=== PATIENT | female | born 1930 | race Caucasian/White ===

== ENCOUNTER 2017-12-11 07:03 | Day surgery (SDC) | payer MEDICARE ==
[2017-12-11] MEDS ORDERED: Acetaminophen 500 MG TAB PO SCH (08:45)
[2017-12-11] MEDS ORDERED: diphenhydrAMINE 25 MG CAP PO SCH (08:45)
[2017-12-11] MEDS ORDERED: Sodium Chloride 0.9% 10 ML ONE (08:52)
[2017-12-11 14:09] LABS: Hemoglobin 9.6 g/dL (12.0-16.0)
[2017-12-11 16:24] VITALS: TEMP 97.6
[2017-12-11 17:12] VITALS: BP 150/67
== END 2017-12-11 17:13 | disposition home or self-care (01) ==
LOC: ONC/OP 07:03
PROVIDERS: ATTEND Internal Medicine Medical Oncology
DX: D64.9 Anemia, unspecified (principal); D69.6 Thrombocytopenia, unspecified; Z88.2 Allergy status to sulfonamides; Z88.1 Allergy status to other antibiotic agents
CPT/HCPCS: 36415; 36430; 85014; 85018; 86850; 86900; 86901; A4216; P9016

== ENCOUNTER 2017-12-12 04:17 | Inpatient (IN) | payer MEDICARE ==
[2017-12-12 04:56] LABS: CO2 Tension 32.1 mmHg (35.0-45.0); pH, Arterial 7.39 (7.35-7.45)
[2017-12-12 04:57] LABS: Actual Bicarbonate (HCO3a) 19.1 mEq/L (22-28); Base Excess (BEa) -4.9 mEq/L (-2.0 to +3.0); Hemoglobin (Hb) 11.7 g/dL (12.0-16.0); O2 Tension (PaO2) 59.8 mmHg (> 60.0)
[2017-12-12 04:58] LABS: Carboxyhemoglobin (COHb) 0.8 gm% (0.0-3.0)
[2017-12-12 04:59] LABS: ALV-art Gradient 49.805 (0-20); Analyzer IN Cardio ER; Calcium, Ionized 1.1 mmol/L (1.12-1.30); Potassium - ABG Lab 3.5 mmol/L (3.70-5.30); Puncture Site RRA
[2017-12-12 05:23] LABS: #Basophils 0.1 thou/uL (0.0-0.2); #Eosinphils 0.1 thou/uL (0.0-0.7); #Lymphocytes 2.3 thou/uL (1.20-3.40); #Monocytes 1.1 thou/uL (0.11-0.59); #Neutrophils 14.4 thou/uL (1.40-6.50); %Basophils 0.8 % (0.0-1.0); %Eosinophils 0.5 % (0.0-10.0); %Lymphocytes 12.8 % (21.0-51.0); %Monocytes 6.2 % (0.0-10.0); %Neutrophils 79.7 % (42.0-75.0); Hemoglobin 11.1 g/dL (12.0-16.0); Mean Corpuscular HGB CONC 31.4 g/dL (32.0-36.0); Mean Corpuscular Hemoglobin 26.9 pg (27.0-31.0); Mean Corpuscular Volume 85.7 fL (78.0-98.0); Mean Platelet Volume 7.3 fL (7.4-10.4); Platelet Count 265 thou/uL (130-400); RBC Distribution Width 14.6 % (11.5-14.5); Red Blood Cell (RBC) Count 4.14 mill/uL (4.20-5.40); White Blood Cell (WBC) Count 18.1 thou/uL (4.8-10.8)
[2017-12-12 05:38] LABS: ALT (SGPT) 11 U/L (8-55); AST (SGOT) 17 U/L (5-34); Albumin 3.3 g/dL (3.4-4.8); Alkaline Phosphatase 95 U/L (40-150); Anion Gap 17 mmol/L (10-20); BUN (Urea Nitrogen) 31 mg/dL (9.8-20.1); Calc. Creatinine Clearance 0 mL/min (70-130); Calcium 8.4 mg/dL (7.8-10.44); Carbon Dioxide 18 mmol/L (23-31); Chloride 107 mmol/L (98-107); Estimated GFR-MDRD 24; Globulin 3.7 g/dL (2.4-3.5); Glucose 131 mg/dL (83-110); Potassium 3.6 mmol/L (3.5-5.1); Sodium 138 mmol/L (136-145)
[2017-12-12 05:45] LABS: CKMB 2.2 ng/mL (0-6.6); Troponin I 0.044 ng/mL (< 0.028)
[2017-12-12] MEDS ORDERED: Levofloxacin 500 mg/D5W 100 ml Premix Bag ONE (07:23)
[2017-12-12 07:25] LABS: Troponin I 0.051 ng/mL (< 0.028)
[2017-12-12] MEDS ORDERED: Ondansetron ODT 4 MG TAB PO PRN (07:35)
[2017-12-12] MEDS ORDERED: Dextrose 50% Abboject 50 ML SYRINGE SLOW IVP PRN (07:35)
[2017-12-12] MEDS ORDERED: Acetaminophen 325 MG TAB PO PRN (07:35)
[2017-12-12] MEDS ORDERED: Dextrose 5% in Water 1,000 ML IV PRN (07:35)
[2017-12-12] MEDS ORDERED: Zolpidem Tartrate 5 MG TAB PO PRN (07:35)
--- NOTE | 2017-12-12 08:13 | HP ---
PRIMARY CARE PROVIDER: Dr. Arias Hu CHIEF COMPLAINT: Referred to [facility] by [facility]. HISTORY OF PRESENT ILLNESS: The patient presents with shortness of breath and productive cough. No off color sputum. No fever, chills or sweats. She has been sick with some of these symptoms for a c ouple of weeks. She had some outpatient antibiotics which she did not complete. She was in the hosp ital and found to be anemic. Workup revealed a villous adenoma. She was discharged home. She repre sents with the same symptoms. Physical examination is consistent with bilateral pneumonia. Chest x-ray shows bilateral infiltrates . She is being admitted to the hospital with a diagnosis of pneumonia. PAST MEDICAL HISTORY: Recent iron deficiency anemia, found to have a villous adenoma of the colon. She has chronic kidney disease related to IV contrast for cardiac cath in 2014. She has a prosthetic mechanical aortic valve placed in 2014. She has a history of high blood pressure, dyslipidemia, typ e 2 diabetes, gout. PAST SURGICAL HISTORY: She has had a tubal ligation, aortic valve, bladder surgery. CURRENT MEDICATIONS: Glipizide 2.5 mg a day, atorvastatin 20 mg a day, metoprolol 25 mg a day, allop urinol 100 mg a day, aspirin 81 mg a day. Amlodipine 5 mg a day. ALLERGIES: BACTRIM, CEPHALEXIN, SULFA, TRIMETHOPRIM. SOCIAL HISTORY: Never smoked, no alcohol. Lives with daughter. CODE STATUS: Full code status. Daughter next of kin. FAMILY HISTORY: No high blood pressure, diabetes, heart disease. REVIEW OF SYSTEMS: CONSTITUTIONAL: No fevers, sweats, chills, headaches, dizziness or fainting. EYES: No double vision, blurred vision. ENT: No ear pain or drainage. No nasal bleeding. No trouble swallowing. CARDIAC: Some chest tightness and pain with coughing. Otherwise, no chest pain, no orthopnea, no pa roxysmal nocturnal dyspnea. RESPIRATORY: See present illness. She has no chronic dyspnea on exertion, no history of asthma or w heezing. GASTROINTESTINAL: No nausea, vomiting, diarrhea or constipation, blood in her stools or abdominal pa in. GENITOURINARY: No hematuria or dysuria. MUSCULOSKELETAL: Some swelling in her right ankle which has been attributed to amlodipine. No parti cular joint or muscle pain. NEUROLOGICAL: No strokes, seizures or focal weakness. PSYCHIATRIC: No anxiety or depression. SKIN: She has thin skin on her arms. She has easy bruising, especially with any mild trauma or IVs or blood drawing. HEME/LYMPH: No tender or swollen lymph nodes in axilla, inguinal or cervical area. PHYSICAL EXAMINATION: GENERAL: The patient is alert, oriented, cooperative, very pleasant lady. Daughter at bedside. VIT AL SIGNS: Her respirations range from 22-36, O2 sat is high 90s on 2 liters of O2, blood pressure 16 4/73, pulse is 85-94. HEENT: Reveal pupils equal, round, reactive. Extraocular movements are intact. Sclerae white. Tym panic membranes clear. Nose clear. Throat is clear. Dental hygiene is good. NECK: No jugular venous distention, adenopathy or thyromegaly. CHEST: Clear to percussion. There are rales and rhonchi bilaterally posterior lung el minorly i n the anterior lung el. HEART: Had a regular rate and rhythm with crisp valve sounds. They sound mechanical; however, she i s listed as having a bioprosthetic valve. No murmurs or gallops. ABDOMEN: Soft, bowel sounds are normal. No hepatosplenomegaly, no mass, no rebound. EXTREMITIES: Reveal no cyanosis, clubbing or edema. PULSES: Carotid, radial, femoral, and dorsalis pedis pulses intact. SKIN: Warm and dry. She has marked actinic changes on her forearms and some bruising at the site of IVs. HEME/LYMPH: Reveals no tender or swollen lymph nodes in axilla, inguinal or cervical area. NEUROLOGIC: Cranial nerves II-XII are intact. Moves all extremities. Sensation is intact. LABORATORY AND X-RAY FINDINGS: Chest x-ray read by me. Surgical changes from midline sternotomy. I am able to see a mechanical valve. She has some reticular nodular infiltrates bilaterally. EKG; no ne presented. We will look for one, if not available, will order. White count elevated at 18.1 with an absolute neutrophilia, hemoglobin 11.1, platelet count 265,000. A D-dimer was elevated at 2.5. Arterial blood gas shows a normal pH, low CO2, low O2. Comp metabol ic profile shows elevated troponins 0.044, 0.051. BNP 685, creatinine 1.97, BUN 31, CO2 18, potassiu m 3.6, sodium 138. ADMITTING DIAGNOSES: 1. Acute hypoxic respiratory failure. 2. Pneumonia, bilateral. 3. Aortic valve prosthesis. 4. Chronic kidney disease stage 4. 5. Hypertension. 6. 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 type 2. 7. Dyslipidemia. 8. Villous adenoma. PLAN: The patient's chronic kidney disease 4 precludes contrast study for pulmonary emboli. VQ scan has been ordered stat. An echocardiogram has been ordered. Blood cultures have been ordered. Anti biotics with IV Levaquin and Zithromax have been ordered. O2 as needed to keep sats up to 92 have be en ordered. Repeat CBC, basic metabolic profile for tomorrow morning has been ordered.
--- NOTE | 2017-12-12 08:30 | RAD ---
PORTABLE CHEST 1 VIEW: Date: 12/12/17 Time: 0350 hours HISTORY: Difficulty breathing. FINDINGS/IMPRESSION: Comparison made with exam of 05/23/16. Changes of median sternotomy are again seen. The heart size is borderline. There is pulmonary vascula r congestion with mild bibasilar infiltrates. No pneumothoraces or large effusions are seen. POS: [facility]
--- NOTE | 2017-12-12 08:43 | ULT ---
BILATERAL LOWER EXTREMITY VENOUS DOPPLER ULTRASOUND: Date: 12/12/17 HISTORY: Shortness of breath. Bilateral lower extremity pain. TECHNIQUE: Sarabia scale ultrasound with color flow and spectral Doppler imaging of the deep venous systems of the lower extremities was performed bilaterally. FINDINGS: There is good flow, compression, and augmentation noted in the common femoral, femoral, deep femoral, popliteal, posterior tibial, and greater saphenous veins on either side. IMPRESSION: No evidence of deep venous thrombosis in either lower extremity. POS: [facility]
[2017-12-12 10:45] VITALS: BMI 28.3
[2017-12-12] MEDS: Azithromycin 500 MG in Sodium Chloride 0.9% 250 ML 250 ML IVPB SCH (11:06)
[2017-12-12] MEDS: Heparin 5,000 UNITS/ML VIAL SC SCH ×3 (11:06→21:28)
--- NOTE | 2017-12-12 11:17 | NM ---
VQ SCAN: Date: 12/12/17 HISTORY: Shortness of breath. TECHNIQUE: Ventilation/perfusion scan performed using 17.2 mCi Xenon-133 by inhalation for the ventilation study followed by the intravenous administration of 6.6 mCi technetium-99m MAA for the perfusion scan. FINDINGS: Correlation is made with chest radiograph same date. Fairly homogeneous tracer distribution is seen in the lungs bilaterally on ventilation/perfusion scan without mismatched, pleural based, wedge-shaped, segmental/subsegmental, perfusion defects. IMPRESSION: Very low probability for pulmonary embolism. POS: [facility]
--- NOTE | 2017-12-12 13:29 | PDOC.EVN ---
Event Note - Event Note Event Note: monitor- poss a flutter, sinus dagoberto
[2017-12-12 14:05] LABS: Troponin I 0.034 ng/mL (< 0.028)
[2017-12-12] MEDS ORDERED: Diltiazem 125 MG in Sodium Chloride 0.9% 100 ML IVPB SCH (17:00)
[2017-12-12] MEDS ORDERED: Amiodarone In Dextrose 200 ML IVPB SCH (18:00)
[2017-12-12] MEDS ORDERED: Amiodarone HCl 150 MG, Admixture Fee 1 EACH in Dextrose 5% in Water 100 ML IVPB SCH (18:15)
[2017-12-12] MEDS: HumaLOG 300 UNITS/3 ML VIAL SC PRN (18:41)
--- NOTE | 2017-12-12 18:43 | CON ---
DATE OF CONSULTATION: 12/12/2017 CARDIOLOGY CONSULTATION PRIMARY PEDIATRIC UROLOGIST: Eliseo Reyes M.D. REASON FOR CONSULTATION: Atrial fibrillation with rapid ventricular response. HISTORY OF PRESENT ILLNESS: Mrs. Bradford is a very pleasant 87-year-old white female who comes to [facility] for shortness of breath where she was diagnosed with possibly bilateral pneumonia. She heart s mild bilateral pleural effusions. She was admitted and placed on antibiotics. She has been on tel emetry and earlier today she went into atrial fibrillation RVR, heart rate in the 140s to 150s. She has a significant history of aortic valve replacement due to severe aortic stenosis. This happened i 2014, she had a #19 bioprosthetic aortic valve placed. She had a very complex postoperative course with several complications including acute renal failure that required her to be on dialysis up to a bout a couple years ago. She has remained in chronic kidney disease stage 4 now. She was started on diltiazem drip and her heart rate has improved to the 120s, but still tachycardic. Cardiology is be ing consulted for further recommendations. She had admission a few weeks ago for a GI bleed. She heart d a hemoglobin trickled down to 6.6, which she needs blood transfusions for. She had an endoscopy at that time and colonoscopy. She had 2 polypectomies done and a colonoscopy that showed tubulovillous adenoma and she was found to have an ulcer in her stomach that was biopsied and eventually diagnosed with gastric adenocarcinoma, poorly differentiated, and invasive. She had a CT of the chest, abdome n, and pelvis and she was found to have some swollen lymph nodes around the gastric fundus that was t hought to be possible metastatic disease. She is scheduled to have a PET scan done later this month. She has already seen Dr. Vargas and there are talks about possibly doing a resection of the tumor . This will have to be done in [place] apparently. PAST MEDICAL HISTORY: 1. Hypertension. 2. Hyperlipidemia. 3. Type 2 diabetes. 4. Gout. 5. Aortic stenosis, status post bioprosthetic aortic valve. 6. Chronic kidney disease stage 4. PAST SURGICAL HISTORY: 1. Tubal ligation. 2. Aortic valve replacement with a #19 bioprosthetic aortic valve. 3. Bladder sling. 4. Mild coronary artery disease in 2014. OUTPATIENT MEDICATIONS: Include: 1. Glipizide 2.5 mg a day. 2. Protonix 40 mg b.i.d. 3. Vitamin D3. 4. Lipitor 20 mg at bedtime. 5. Amlodipine 2.5 mg a day. 6. Allopurinol 100 mg a day. 7. Metoprolol 25 mg p.o. daily. ALLERGIES: KEFLEX and BACTRIM. FAMILY HISTORY: Noncontributory. SOCIAL HISTORY: No alcohol, tobacco or drugs. REVIEW OF SYSTEMS: Twelve point review of systems was done and it is negative except as stated in th e history of present illness. PHYSICAL EXAMINATION: VITAL SIGNS: Temperature 98.6, pulse 93, respiration rate 18, satting at 97% on room air, blood pres sure 116/74. GENERAL: Awake, alert, oriented x3, in no distress. HEENT: Normocephalic, atraumatic. NECK: Supple. LUNGS: Clear. CARDIOVASCULAR: Tachycardic in the 150s. Irregular heart, no murmurs or rubs. ABDOMEN: Soft, positive bowel sounds. EXTREMITIES: No edema. SKIN: Warm and dry. LABORATORY DATA: Laboratory work wad reviewed. White count of 18,000, hemoglobin of 11, hematocrit of 35, platelet count of 265. Coags: D-dimer was a little elevated. ABG was reviewed. Chemistries were reviewed. BUN of 31, creatinine 1.94 with GFR of 24, glucose of 241. Troponin was indetermina te range 0.05, 0.03. BNP of 685, albumin 3.3, but normal sodium and potassium. IMAGING DATA: Echocardiogram was done earlier today shows an EF of 60%-65%. Sigmoid shaped septum, but no significant LVOT gradient. Aortic valve was not well seen. Gradients measured are normal for her bioprosthetic valve. Lower extremity venous Doppler shows no evidence of DVT and she had a V/Q scan that showed low probab ility for PE. ASSESSMENT AND PLAN: Atrial fibrillation with rapid ventricular response: She is not adequately rat e controlled on diltiazem drip. We will plan on starting her on an amiodarone drip as she will need to have the lowest possible amount of atrial fibrillation. I would think an arrhythmic would be terence cated in this setting. We will stop the diltiazem drip and up titrate her beta wiliam as well as we have enough blood pressure for this. She is not a good candidate for full anticoagulation as she heart s gastric adenocarcinoma and she has bled in the past from this. This is still there in place and annie villa is high risk for bleeding. She probably will not be a good candidate for aspirin either given the same reason. For now, I spoke with her about possibly doing a Watchman or lariat, which is nothing t hat would happen emergently here in the hospital and she would be agreeable to this. Currently, we w ill just try to rate control her. Hopefully, when she goes back to sinus and she is on amiodarone, s he may just stay in sinus after that. Thank you for letting us to participate in the care of your patient. Dr. Reyes, her primary card iologist will follow up in the morning.
[2017-12-12] MEDS: Amiodarone HCl 450 MG, Admixture Fee 1 EACH in Dextrose 5% in Water 250 ML IVPB SCH (18:47)
[2017-12-12] MEDS: Metoprolol Tartrate 25 MG TAB PO SCH (21:29)
[2017-12-13 05:51] LABS: #Lymphocytes 0.8 thou/uL (1.20-3.40); #Monocytes 0.7 thou/uL (0.11-0.59); #Neutrophils 10.5 thou/uL (1.40-6.50); %Basophils 0.2 % (0.0-1.0); %Eosinophils 0.3 % (0.0-10.0); %Lymphocytes 6.2 % (21.0-51.0); %Monocytes 6.2 % (0.0-10.0); %Neutrophils 87.1 % (42.0-75.0); Mean Corpuscular HGB CONC 33.2 g/dL (32.0-36.0); Mean Corpuscular Hemoglobin 28.6 pg (27.0-31.0); Mean Corpuscular Volume 86.1 fL (78.0-98.0); Mean Platelet Volume 7.6 fL (7.4-10.4); Platelet Count 274 thou/uL (130-400); Red Blood Cell (RBC) Count 3.86 mill/uL (4.20-5.40); White Blood Cell (WBC) Count 12.1 thou/uL (4.8-10.8)
[2017-12-13 06:00] LABS: Anion Gap 18 mmol/L (10-20); BUN (Urea Nitrogen) 43 mg/dL (9.8-20.1); Calc. Creatinine Clearance 22 mL/min (70-130); Calcium 8.6 mg/dL (7.8-10.44); Carbon Dioxide 15 mmol/L (23-31); Chloride 107 mmol/L (98-107); Estimated GFR-MDRD 23; Glucose 300 mg/dL (83-110); Potassium 4.4 mmol/L (3.5-5.1); Sodium 136 mmol/L (136-145)
[2017-12-13] MEDS: Amiodarone HCl 450 MG, Admixture Fee 1 EACH in Dextrose 5% in Water 250 ML IVPB SCH (06:05)
[2017-12-13] MEDS: Metoprolol Tartrate 25 MG TAB PO SCH ×2 (09:53→19:54)
[2017-12-13] MEDS: Heparin 5,000 UNITS/ML VIAL SC SCH ×3 (09:53→19:54)
[2017-12-13] MEDS: Azithromycin 500 MG in Sodium Chloride 0.9% 250 ML 250 ML IVPB SCH (09:56)
[2017-12-13] MEDS ORDERED: Labetalol HCl 100 MG/20 ML VIAL SLOW IVP SCH (11:15)
[2017-12-13] MEDS: HumaLOG 300 UNITS/3 ML VIAL SC PRN ×2 (11:55→17:53)
--- NOTE | 2017-12-13 15:16 | EKG ---
Test Reason : Blood Pressure : / mmHG Vent. Rate : 086 BPM Atrial Rate : 086 BPM P-R Int : 196 ms QRS Dur : 088 ms QT Int : 426 ms P-R-T Axes : 068 -04 052 degrees QTc Int : 509 ms Normal sinus rhythm Prolonged QT Abnormal ECG When compared with ECG of 12-DEC-2017 05:37, (Unconfirmed) No significant change was found Confirmed by PABLO CRUZ, ROSANGELA ([id number]) on 12/13/2017 3:15:51 PM Referred By: GISSELLE Confirmed By:ROSANGELA SHAH MD
[2017-12-13] MEDS: Labetalol HCl 100 MG/20 ML VIAL SLOW IVP PRN ×2 (17:55→23:45)
[2017-12-13] MEDS ORDERED: Atorvastatin Calcium 20 MG TAB PO SCH (21:00)
[2017-12-13] MEDS ORDERED: Amlodipine 5 MG TAB PO SCH (21:00)
[2017-12-14] MEDS ORDERED: Atorvastatin Calcium 20 MG TAB PO SCH (09:00)
[2017-12-14] MEDS ORDERED: Allopurinol 100 MG TAB PO SCH (09:00)
[2017-12-14] MEDS ORDERED: Metoprolol Tartrate 25 MG TAB PO SCH (09:00)
--- NOTE | 2017-12-14 10:13 | PDOC.PN ---
- Subjective Encounter Start Date: 12/13/17 Encounter Start Time: 11:00 Patient is seen today, along with nice and Daughter at bedside, pt is weak, but off of oxygen, she is on Nebulizer treatments. Diagnosed with Pneumonia. - Objective Resuscitation Status: Resuscitation Status FULL:Full Resuscitation MAR Reviewed: Yes Vital Signs & Weight: Vital Signs (12 hours) Temp Pulse Resp BP BP Pulse Ox 12/14/17 07:50 97.6 F 71 18 157/69 H 95 12/14/17 03:48 97.7 F 75 20 162/70 H 95 12/14/17 00:00 97.6 F 69 18 190/79 H 93 L 12/13/17 23:45 75 189/81 H Weight Weight 148 lb 9.6 oz I&O: 12/13/17 12/14/17 12/15/17 06:59 06:59 06:59 Intake Total 640 1330.4 Output Total 100 Balance 640 1230.4 Result Diagrams: 12/13/17 05:20 12/13/17 05:20 Additional Labs: Accuchecks 12/14/17 12/13/17 12/13/17 05:13 20:37 17:47 POC Glucose 220 H 247 H 286 H 12/13/17 11:53 POC Glucose 333 H Radiology Reviewed by me: Yes Phys Exam - Physical Examination HEENT: PERRLA, moist MMs Neck: no nodes, no JVD Respiratory: no wheezing, no rales Cardiovascular: RRR, no significant murmur Gastrointestinal: soft, non-tender Musculoskeletal: no edema, pulses present Lymphatic: no nodes Psychiatric: normal affect, A&O x 3 Dx/Plan (1) Pneumonia of both lower lobes Code(s): J18.9 - PNEUMONIA, UNSPECIFIED ORGANISM Status: Acute Comment: Failed outpaitent oral Abx, continue on levaquin/Azithromycin, waiitng for sputum/ blood cultures. Continue nebs PRN (2) Acute and chronic respiratory failure with hypoxia Code(s): J96.21 - ACUTE AND CHRONIC RESPIRATORY FAILURE WITH HYPOXIA Status: Acute Comment: Resolved, On RA now. (3) Aortic valve prosthesis present Code(s): Z95.2 - PRESENCE OF PROSTHETIC HEART VALVE Status: Acute Comment: Cardiology consulted. Echo pending. (4) Poorly controlled type 2 diabetes mellitus Code(s): E11.65 - TYPE 2 DIABETES MELLITUS WITH HYPERGLYCEMIA Status: Acute Comment: Will increase SSI and ramana hart monitor. (5) Hypertension Code(s): I10 - ESSENTIAL (PRIMARY) HYPERTENSION Status: Chronic Comment: Continue Home meds, keep systolic <135/85 - Plan cont current plan of care, plan discussed w/ family, continue antibiotics, PT/OT , social psychologist, respiratory therapy, incentive spirometry, DVT proph w/ lovenox * . Review of Systems - Review of Systems Constitutional: weakness, malaise Eyes: negative: Pain, Vision Change, Conjunctivae Inflammation, Eyelid Inflammation, Redness, Other ENT: negative: Ear Pain, Ear Discharge, Nose Pain, Nose Discharge, Nose Congestion, Mouth Pain, Mouth Swelling, Throat Pain, Throat Swelling, Other Respiratory: Cough, SOB with Excertion, Wheezing. negative: Dry, Shortness of Breath, Hemoptysis, Pleuritic Pain, Sputum Gastrointestinal: negative: Nausea, Vomiting, Abdominal Pain, Diarrhea, Constipation, Melena, Hematochezia, Other Genitourinary: negative: Dysuria, Frequency, Incontinence, Hematuria, Retention , Other Musculoskeletal: negative: Neck Pain, Shoulder Pain, Arm Pain, Back Pain, Hand Pain, Leg Pain, Foot Pain, Other Skin: negative: Rash, Lesions, Hitesh, Bruising, Other Neurological: negative: Weakness, Numbness, Incoordination, Change in Speech, Confusion, Seizures, Other - Medications/Allergies Allergies/Adverse Reactions: Allergies Allergy/AdvReac Type Severity Reaction Status Date / Time cephalexin monohydrate Allergy Unknown tightness Verified 05/23/16 15:57 [From Keflex] in chest, difficulty breathing sulfamethoxazole Allergy Verified 12/03/17 14:55 [From Bactrim] trimethoprim [From Bactrim] Allergy Verified 12/03/17 14:55 Medications: Current Medications Acetaminophen (Tylenol) 650 mg PO Q4H PRN PRN Reason: Headache/Fever or Pain Allopurinol (Zyloprim) 100 mg PO QAM [facility] Amlodipine Besylate (Norvasc) 2.5 mg PO HS [facility] Last Admin: 12/13/17 19:52 Dose: 2.5 mg Atorvastatin Calcium (Lipitor) 20 mg PO DAILY [facility] Cholecalciferol (Vitamin D3) 2,000 units PO QAM [facility] Dextrose/Water (Dextrose 50%) 25 gm SLOW IVP PRN PRN PRN Reason: Hypoglycemia Glipizide (Glucotrol Xl) 2.5 mg PO QAM-WM [facility] Glucagon (Glucagon) 1 mg IM PRN PRN PRN Reason: Hypoglycemia Heparin Sodium (Porcine) (Heparin) 5,000 units SC TID [facility] Last Admin: 12/13/17 19:54 Dose: 5,000 units Azithromycin 500 mg/ Sodium (Chloride) 250 mls @ 250 mls/hr IVPB Q24HR [facility] Last Admin: 12/13/17 09:56 Dose: 250 mls Dextrose/Water (D5w) 1,000 mls @ 0 mls/hr IV .Q0M PRN PRN Reason: Hypoglycemia Levofloxacin 250 mg/ Device 50 mls @ 100 mls/hr IVPB Q24HR [facility] Last Admin: 12/13/17 11:27 Dose: 50 mls Amiodarone HCl 450 mg/Miscellaneous Medication 1 each/ Dextrose/Water 259 mls @ 0 mls/hr IVPB INF [facility]; Protocol Last Admin: 12/13/17 06:05 Dose: 259 mls Insulin Human Lispro (Humalog) 0 units SC .MILD SLIDING SCALE PRN PRN Reason: Mild Correctional Scale Last Admin: 12/13/17 17:53 Dose: 3 unit Labetalol HCl (Normodyne) 10 mg SLOW IVP Q6H PRN PRN Reason: SBP GREATER THAN 160 Last Admin: 12/13/17 23:45 Dose: 2 ml Metoprolol Tartrate (Lopressor) 25 mg PO BID [facility] Last Admin: 12/13/17 19:54 Dose: 25 mg Ondansetron HCl (Zofran Odt) 4 mg PO Q6H PRN PRN Reason: Nausea/Vomiting Pantoprazole Sodium (Protonix) 40 mg PO BID [facility] Last Admin: 12/13/17 19:52 Dose: 40 mg Sodium Chloride (Flush - Normal Saline) 10 ml IVF Q12HR [facility] Last Admin: 12/14/17 07:50 Dose: Not Given Sodium Chloride (Flush - Normal Saline) 10 ml IVF PRN PRN PRN Reason: Saline Flush Zolpidem Tartrate (Ambien) 5 mg PO HSPRN PRN PRN Reason: Insomnia
[2017-12-14] MEDS: Azithromycin 500 MG in Sodium Chloride 0.9% 250 ML 250 ML IVPB SCH (11:14)
[2017-12-14] MEDS: Metoprolol Tartrate 25 MG TAB PO SCH ×2 (11:15→21:55)
[2017-12-14] MEDS: Heparin 5,000 UNITS/ML VIAL SC SCH ×3 (11:40→21:55)
[2017-12-14 13:32] LABS: Hemoglobin 10.6 g/dL (12.0-16.0); Mean Corpuscular HGB CONC 32.3 g/dL (32.0-36.0); Mean Corpuscular Hemoglobin 27.6 pg (27.0-31.0); Mean Corpuscular Volume 85.4 fL (78.0-98.0); Mean Platelet Volume 7.5 fL (7.4-10.4); Platelet Count 245 thou/uL (130-400); RBC Distribution Width 15.1 % (11.5-14.5); Red Blood Cell (RBC) Count 3.84 mill/uL (4.20-5.40); White Blood Cell (WBC) Count 14.8 thou/uL (4.8-10.8)
[2017-12-14 13:45] LABS: Lymphocytes 7 % (21-51); MDiff Complete? YES; Monocytes 5 % (0-10); Neutrophil 88 % (42-75); PLT Morphology Comment 1; Polychromasia SLIGHT = 2-3 cells (100X) (0-2/hpf); Vacuoles SLIGHT
[2017-12-14 14:01] LABS: Anion Gap 13 mmol/L (10-20); BUN (Urea Nitrogen) 48 mg/dL (9.8-20.1); Calc. Creatinine Clearance 21 mL/min (70-130); Calcium 8.5 mg/dL (7.8-10.44); Carbon Dioxide 20 mmol/L (23-31); Chloride 108 mmol/L (98-107); Estimated GFR-MDRD 23; Glucose 245 mg/dL (83-110); Sodium 137 mmol/L (136-145)
[2017-12-14] MEDS: Amiodarone HCl 450 MG, Admixture Fee 1 EACH in Dextrose 5% in Water 250 ML IVPB SCH (14:54)
--- NOTE | 2017-12-14 15:15 | EKG ---
Test Reason : ER INDICATION Blood Pressure : / mmHG Vent. Rate : 086 BPM Atrial Rate : 086 BPM P-R Int : 192 ms QRS Dur : 084 ms QT Int : 408 ms P-R-T Axes : 058 -11 058 degrees QTc Int : 488 ms Normal sinus rhythm Possible Left atrial enlargement Inferior infarct , age undetermined Anterior infarct , age undetermined Q waves in III, aVF No ST elevation or depression Abnormal ECG Similar to 02-DEC-2017 Confirmed by FELIBERTO GASTELUM DO ([id number]), multimedia editor ALF MATHEW ([id number]) on 12/14/2017 3:15:31 PM Referred By: Confirmed By:FELIBERTO GASTELUM DO
[2017-12-14] MEDS ORDERED: Azithromycin 250 MG TAB PO SCH (17:15)
--- NOTE | 2017-12-14 17:24 | RAD ---
PORTABLE CHEST: 12/14/17 HISTORY: Shortness of breath. COMPARISON: 12/12/17. FINDINGS/IMPRESSION: Cardiomegaly with postop sternotomy change. Patchy atelectasis and/or infiltrate in the right mid and lower lung noted. Probable mild atelectasis in the left lung base. Evidence of small effusions. POS: [facility]
--- NOTE | 2017-12-14 17:44 | PDOC.PN ---
- Subjective Encounter Start Date: 12/14/17 Encounter Start Time: 15:00 PAtient is seen today, alert and oriented. Her daughter is woried about Metoprolol not dosed right. Pt is more weaker today and is on oxygen. - Objective Resuscitation Status: Resuscitation Status FULL:Full Resuscitation MAR Reviewed: Yes Vital Signs & Weight: Vital Signs (12 hours) Temp Pulse Resp BP Pulse Ox 12/14/17 16:05 79 161/72 H 92 L 12/14/17 15:50 70 162/72 H 96 12/14/17 14:50 73 137/63 95 12/14/17 13:50 77 181/75 H 12/14/17 12:50 75 182/74 H 12/14/17 11:50 97.1 F L 76 16 160/69 H 94 L 12/14/17 10:50 81 164/74 H 93 L 12/14/17 10:10 77 158/70 H 94 L 12/14/17 09:50 75 177/81 H 96 12/14/17 08:50 73 188/77 H 95 12/14/17 08:00 97.6 F 77 18 12/14/17 07:50 97.6 F 71 18 157/69 H 95 Weight Weight 148 lb 9.6 oz I&O: 12/13/17 12/14/17 12/15/17 06:59 06:59 06:59 Intake Total 640 1330.4 Output Total 100 Balance 640 1230.4 Result Diagrams: 12/14/17 13:19 12/14/17 13:19 Additional Labs: Accuchecks 12/14/17 12/14/17 12/13/17 10:43 05:13 20:37 POC Glucose 205 H 220 H 247 H 12/13/17 17:47 POC Glucose 286 H Radiology Reviewed by me: Yes EKG Reviewed by me: Yes Phys Exam - Physical Examination HEENT: PERRLA, moist MMs Neck: no nodes, no JVD Respiratory: wheezing present Cardiovascular: RRR, no significant murmur Gastrointestinal: soft, non-tender Musculoskeletal: no edema, pulses present Neurological: non-focal, normal sensation Lymphatic: no nodes Dx/Plan (1) Pneumonia of both lower lobes Code(s): J18.9 - PNEUMONIA, UNSPECIFIED ORGANISM Status: Acute Comment: Failed outpaitent oral Abx, continue on levaquin/Azithromycin, waiitng for sputum/ blood cultures. Continue nebs PRN, worseing SOb , now on oxygen, Will consult Pulmonary. (2) Acute and chronic respiratory failure with hypoxia Code(s): J96.21 - ACUTE AND CHRONIC RESPIRATORY FAILURE WITH HYPOXIA Status: Acute Comment: Worseing last night, now on oxygen, elevated WBC, will repeat chest xray, . (3) Aortic valve prosthesis present Code(s): Z95.2 - PRESENCE OF PROSTHETIC HEART VALVE Status: Acute Comment: Cardiology consulted. Echo normal. Continue on Amiodarone for Afib Rvr. . (4) Poorly controlled type 2 diabetes mellitus Code(s): E11.65 - TYPE 2 DIABETES MELLITUS WITH HYPERGLYCEMIA Status: Acute Comment: Will increase SSI andincrease GLipizide to 5mg, closley monitor. (5) Hypertension Code(s): I10 - ESSENTIAL (PRIMARY) HYPERTENSION Status: Chronic Comment: Continue Home meds, keep systolic <135/85 - Plan cont current plan of care, plan discussed w/ family, continue antibiotics, PT/OT , social professionals, respiratory therapy, incentive spirometry, DVT proph w/ lovenox * . Review of Systems - Review of Systems Constitutional: weakness Eyes: negative: Pain, Vision Change, Conjunctivae Inflammation, Eyelid Inflammation, Redness, Other ENT: negative: Ear Pain, Ear Discharge, Nose Pain, Nose Discharge, Nose Congestion, Mouth Pain, Mouth Swelling, Throat Pain, Throat Swelling, Other Respiratory: Cough, Shortness of Breath, SOB with Excertion, Wheezing Cardiovascular: negative: chest pain, palpitations, orthopnea, paroxysmal nocturnal dyspnea, edema, light headedness, other Gastrointestinal: negative: Nausea, Vomiting, Abdominal Pain, Diarrhea, Constipation, Melena, Hematochezia, Other Genitourinary: negative: Dysuria, Frequency, Incontinence, Hematuria, Retention , Other Musculoskeletal: negative: Neck Pain, Shoulder Pain, Arm Pain, Back Pain, Hand Pain, Leg Pain, Foot Pain, Other Skin: negative: Rash, Lesions, Hitesh, Bruising, Other - Medications/Allergies Allergies/Adverse Reactions: Allergies Allergy/AdvReac Type Severity Reaction Status Date / Time cephalexin monohydrate Allergy Unknown tightness Verified 05/23/16 15:57 [From Keflex] in chest, difficulty breathing sulfamethoxazole Allergy Verified 12/03/17 14:55 [From Bactrim] trimethoprim [From Bactrim] Allergy Verified 12/03/17 14:55 Medications: Current Medications Acetaminophen (Tylenol) 650 mg PO Q4H PRN PRN Reason: Headache/Fever or Pain Allopurinol (Zyloprim) 100 mg PO QAM [facility] Last Admin: 12/14/17 11:15 Dose: 100 mg Allopurinol (Zyloprim) 100 mg PO DAILY [facility] Amlodipine Besylate (Norvasc) 10 mg PO HS [facility] Amlodipine Besylate (Norvasc) 2.5 mg PO HS [facility] Atorvastatin Calcium (Lipitor) 20 mg PO DAILY [facility] Last Admin: 12/14/17 11:15 Dose: 20 mg Atorvastatin Calcium (Lipitor) 20 mg PO DAILY [facility] Azithromycin (Zithromax) 500 mg PO NOW [facility] Stop: 12/14/17 19:15 Cholecalciferol (Vitamin D3) [facility] [place] Admin: 12/14/17 11:15 Dose: 2,000 units Dextrose/Water (Dextrose 50%) 25 gm SLOW IVP PRN PRN PRN Reason: Hypoglycemia Glipizide (Glucotrol Xl) 5 mg PO QA[facility] Glucagon (Glucagon) 1 mg IM PRN PRN PRN Reason: Hypoglycemia Heparin Sodium (Porcine) (Heparin) 5,000 units SC TID [facility] Last Admin: 12/14/17 11:40 Dose: 5,000 units Azithromycin 500 mg/ Sodium (Chloride) 250 mls @ 250 mls/hr IVPB Q24HR [facility] Last Admin: 12/14/17 11:14 Dose: 250 mls Dextrose/Water (D5w) 1,000 mls @ 0 mls/hr IV .Q0M PRN PRN Reason: Hypoglycemia Levofloxacin 250 mg/ Device 50 mls @ 100 mls/hr IVPB Q24HR [facility] Last Admin: 12/13/17 11:27 Dose: 50 mls Amiodarone HCl 450 mg/Miscellaneous Medication 1 each/ Dextrose/Water 259 mls @ 0 mls/hr IVPB INF [facility]; Protocol Last Admin: 12/14/17 14:54 Dose: 259 mls Insulin Human Lispro (Humalog) 0 units SC .MILD SLIDING SCALE PRN PRN Reason: Mild Correctional Scale Last Admin: 12/13/17 17:53 Dose: 3 unit Labetalol HCl (Normodyne) 10 mg SLOW IVP Q6H PRN PRN Reason: SBP GREATER THAN 160 Last Admin: 12/13/17 23:45 Dose: 2 ml Levofloxacin (Levaquin) 500 mg PO NOW [facility] Stop: 12/14/17 19:15 Metoprolol Tartrate (Lopressor) 25 mg PO BID [facility] Last Admin: 12/14/17 11:15 Dose: 25 mg Ondansetron HCl (Zofran Odt) 4 mg PO Q6H PRN PRN Reason: Nausea/Vomiting Pantoprazole Sodium (Protonix) 40 mg PO BID [facility] Last Admin: 12/14/17 11:15 Dose: 40 mg Sodium Chloride (Flush - Normal Saline) 10 ml IVF Q12HR [facility] Last Admin: 12/14/17 09:00 Dose: Not Given Sodium Chloride (Flush - Normal Saline) 10 ml IVF PRN PRN PRN Reason: Saline Flush Zolpidem Tartrate (Ambien) 5 mg PO HSPRN PRN PRN Reason: Insomnia
[2017-12-14] MEDS: Mometasone/Formoterol 120 PUFF INHALER INH SCH (19:08)
--- NOTE | 2017-12-14 19:34 | CON ---
DATE OF CONSULTATION: 12/14/2017 CONSULTING PHYSICIAN: Dr. Reyez REASON FOR CONSULTATION: Chronic kidney disease, stage 4. REASON FOR ADMISSION: Weakness and shortness of breath and cough. HISTORY OF PRESENT ILLNESS: This is a 87-year-old white female with history of anemia, chronic kidney disease, congestive heart failure, and hyperlipidemia, who came to the hospital with above complaints, was found to have elevated creatinine and Nephrology is consulted. The patient is very tired. She had a recent workup for GI bleed, which showed less adenoma. She is very weak and daughter was at the bedside. No nausea, vomiting, no fever or chills reported. PAST MEDICAL HISTORY: Positive for Villous adenoma, iron deficiency anemia, CKD stage 4, hypertension, hyperlipidemia, and diabetes mellitus. PAST SURGICAL HISTORY: Aortic valve replacement, bladder surgery, tubal ligation. HOME MEDICATIONS: Glipizide, atorvastatin, metoprolol, allopurinol, aspirin, and amlodipine. ALLERGIES: BACTRIM, CEPHALEXIN. SOCIAL HISTORY: No smoking, alcohol or illicit drug abuse. FAMILY HISTORY: No history of kidney disease. REVIEW OF SYSTEMS: The following complete review of systems was negative, unless otherwise mentioned in the HPI or below: Constitutional: Weight loss or gain, ability to conduct usual activities. Skin: Rash, itching. Eyes: Double vision, pain. ENT/Mouth: Nose bleeding, neck stiffness, pain, tenderness. Cardiovascular: Palpitations, dyspnea on exertion, orthopnea. Respiratory: Shortness of breath, wheezing, cough, hemoptysis, fever or night sweats. Gastrointestinal: Poor appetite, abdominal pain, heartburn, nausea, vomiting, constipation, or diarrhea. Genitourinary: Urgency, frequency, dysuria, nocturia. Musculoskeletal: Pain, swelling. Neurologic/Psychiatric: Anxiety, depression. Allergy/Immunologic: Skin rash, bleeding tendency. PHYSICAL EXAMINATION: GENERAL: This is an elderly female, very lethargic. VITAL SIGNS: Temperature 97.6, pulse 77, respiratory rate 18, and blood pressure 158/70. HEENT: Atraumatic, normocephalic. Oral mucosa is moist. NECK: Supple, no masses. CARDIOVASCULAR: S1, S2. Rate and rhythm regular. RESPIRATORY: Clear. GASTROINTESTINAL: Abdomen is soft. MUSCULOSKELETAL: 1+ edema. DERMATOLOGIC: No skin rash. NEUROLOGIC: Alert and awake normal. DATA: Hemoglobin is 11.0, potassium is 4.4, BUN is 43, creatinine is 2.03. ASSESSMENT AND PLAN: 1. Chronic kidney stage IV. Renal function is stable. Avoid nephrotoxins. 2. Edema, controlled. 3. Hypertension. 4. Anemia. Follow up with GI. 5. Metabolic acidosis, chronic. Monitor. 6. Repeat labs in the morning. Avoid nephrotoxins. We will follow. MTDD
[2017-12-14] MEDS: Amlodipine 5 MG TAB PO SCH (21:54)
[2017-12-14] MEDS: Amlodipine 10 MG TAB PO SCH (21:54)
[2017-12-15] MEDS: Mometasone/Formoterol 120 PUFF INHALER INH SCH ×2 (07:03→19:07)
[2017-12-15] MEDS: Allopurinol 100 MG TAB PO SCH (09:21)
[2017-12-15] MEDS: Atorvastatin Calcium 20 MG TAB PO SCH (09:21)
[2017-12-15] MEDS: Metoprolol Tartrate 25 MG TAB PO SCH ×2 (09:21→21:38)
[2017-12-15] MEDS: Azithromycin 500 MG in Sodium Chloride 0.9% 250 ML 250 ML IVPB SCH (09:23)
[2017-12-15] MEDS ORDERED: Furosemide 20 MG/2 ML VIAL SLOW IVP SCH (11:00)
--- NOTE | 2017-12-15 11:58 | SPC ---
PROCEDURE PERIPHERAL INSERTION OF CENTRAL CATHETER: INDICATION: IV antibiotic therapy. FINDINGS: A single-lumen 5 [place] PICC line was placed into a left basilic vein using ultrasound guidance with fluorosocpic confirmation. The tip is positioned in the SVC. PROCEDURE NOTE: Left upper extremity was prepped and draped in a sterile manner. Ultrasound was used to assess the v enous structures. Left basilic vein mid humerus region was chosen for puncture. Local anesthesia wa s administered with Lidocaine. This finding was punctured under ultrasound guidance with micropunctu re technique. A wire was introduced into the vein and the tip of the wire was advanced into the cent ral circulation and positioned in the SVC under fluoroscopic observation. Catheter length was then m easured and cut. A sheath was placed over the wire. The catheter was then advanced over the wire. [place] sheath was removed. Wire removed. The catheter was flushed and secured with a sterile dres sing. There were no problems or complications. POS: [facility]
--- NOTE | 2017-12-15 12:22 | PRG ---
DATE OF SERVICE: 12/15/2017 SUBJECTIVE: Patient was seen and examined at bedside and overnight events noted. Patient denies any shortness of breath or chest pain or palpitation. No history of nausea or vomitin g or diarrhea or fever or chills or cramps. OBJECTIVE: GENERAL: This is an elderly female, very lethargic. VITAL SIGNS: Temperature 96.5, pulse 70, respiratory rate 18, blood pressure 149/65. HEENT: Atraumatic, normocephalic. Oral mucosa is moist. NECK: Supple. CARDIOVASCULAR: S1 and S2 heard. Rate and rhythm regular. RESPIRATORY: Clear to auscultation. GASTROINTESTINAL: Abdomen is soft. MUSCULOSKELETAL: No tenderness. No edema. DERMATOLOGIC: No skin rash. NEUROLOGIC: Alert and awake and oriented x3. No focal neurologic deficits. Moving all the extremit ies. PSYCHIATRIC: Mood and affect normal. LABORATORY: Not done today. ASSESSMENT AND PLAN: 1. Acute kidney injury on chronic kidney disease stage 4. Renal function is stable. 2. Edema, controlled. 3. Hypertension. 4. Anemia. 5. Metabolic acidosis, we will monitor. We will repeat labs in the morning. We will follow.
[2017-12-15] MEDS: Heparin 5,000 UNITS/ML VIAL SC SCH ×3 (12:34→21:32)
--- NOTE | 2017-12-15 12:53 | PRG ---
DATE OF SERVICE: 12/15/2017 SUBJECTIVE: She is back from PICC line. Creatinine is 2. BNP is 697. Daughter says she has less c ough and less shortness of breath. Still on the amiodarone drip. OBJECTIVE: VITAL SIGNS: Blood pressure 149/65, sats are 95 on 2 liters, respiration 17, pulse 71, temperature 9 6. CHEST: Chest revealed minimal crackles. CARDIAC: Normal S1, S2, no gallops. ABDOMEN: Soft, without any masses. IMPRESSION: 1. Interstitial edema. I doubt she has got significant pneumonia. 2. Cough. 3. Bronchitis. 4. Obesity. 5. Supraventricular tachycardia. PLAN: I will switch her to oral antibiotics. I have decreased her steroids. We will probably switc h her to oral prednisone tomorrow. Trial of Lasix. PT and supportive care. PICC line for her IV access, particularly amiodarone. We will follow.
--- NOTE | 2017-12-15 15:12 | PDOC.PN ---
- Subjective Encounter Start Date: 12/15/17 Encounter Start Time: 14:00 Yue is seen today, along with her daughter at bedside, pt is able to eat today, encouraged to improve nutrition. she feels better today. - Objective Resuscitation Status: Resuscitation Status FULL:Full Resuscitation MAR Reviewed: Yes Vital Signs & Weight: Vital Signs (12 hours) Temp Pulse Resp BP Pulse Ox 12/15/17 07:44 96.5 F L 71 17 149/65 H 94 L 12/15/17 07:04 95 12/15/17 07:03 70 12 12/15/17 04:00 97.8 F 63 16 161/70 H 94 L Weight Weight 148 lb 6.4 oz I&O: 12/14/17 12/15/17 12/16/17 06:59 06:59 06:59 Intake Total 1330.4 1161 Output Total 100 350 Balance 1230.4 811 Result Diagrams: 12/14/17 13:19 12/14/17 13:19 Additional Labs: Accuchecks 12/15/17 12/14/17 12/14/17 05:55 20:45 16:53 POC Glucose 222 H 188 H 241 H Radiology Reviewed by me: Yes Phys Exam - Physical Examination HEENT: PERRLA, moist MMs Neck: no nodes, no JVD Respiratory: no wheezing, no rales Cardiovascular: RRR, no significant murmur Gastrointestinal: soft, non-tender Musculoskeletal: no edema, pulses present Lymphatic: no nodes Psychiatric: normal affect, A&O x 3 Dx/Plan (1) Pneumonia of both lower lobes Code(s): J18.9 - PNEUMONIA, UNSPECIFIED ORGANISM Status: Acute Comment: , continue on levaquin/Azithromycin, waiitng for sputum/ blood cultures. Continue nebs PRN, worseing SOb , now on oxygen, consulted Pulmonary. (2) Acute and chronic respiratory failure with hypoxia Code(s): J96.21 - ACUTE AND CHRONIC RESPIRATORY FAILURE WITH HYPOXIA Status: Acute Comment: now on oxygen, elevated WBC, repeat chest xray showed no worseing, but persistant infiltrates in right lung (3) Aortic valve prosthesis present Code(s): Z95.2 - PRESENCE OF PROSTHETIC HEART VALVE Status: Acute Comment: Cardiology consulted. Echo normal. Continue on Amiodarone for Afib Rvr. . (4) Poorly controlled type 2 diabetes mellitus Code(s): E11.65 - TYPE 2 DIABETES MELLITUS WITH HYPERGLYCEMIA Status: Acute Comment: Will increase SSI andincrease GLipizide to 5mg, melodyley monitor. 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 Review of Systems - Review of Systems Eyes: negative: Pain, Vision Change, Conjunctivae Inflammation, Eyelid Inflammation, Redness, Other ENT: negative: Ear Pain, Ear Discharge, Nose Pain, Nose Discharge, Nose Congestion, Mouth Pain, Mouth Swelling, Throat Pain, Throat Swelling, Other Respiratory: negative: Cough, Dry, Shortness of Breath, Hemoptysis, SOB with Excertion, Pleuritic Pain, Sputum, Wheezing Cardiovascular: negative: chest pain, palpitations, orthopnea, paroxysmal nocturnal dyspnea, edema, light headedness, other Gastrointestinal: negative: Nausea, Vomiting, Abdominal Pain, Diarrhea, Constipation, Melena, Hematochezia, Other Genitourinary: negative: Dysuria, Frequency, Incontinence, Hematuria, Retention , Other Musculoskeletal: negative: Neck Pain, Shoulder Pain, Arm Pain, Back Pain, Hand Pain, Leg Pain, Foot Pain, Other - Medications/Allergies Allergies/Adverse Reactions: Allergies Allergy/AdvReac Type Severity Reaction Status Date / Time cephalexin monohydrate Allergy Unknown tightness Verified 05/23/16 15:57 [From Keflex] in chest, difficulty breathing sulfamethoxazole Allergy Verified 12/03/17 14:55 [From Bactrim] trimethoprim [From Bactrim] Allergy Verified 12/03/17 14:55 Medications: Current Medications Acetaminophen (Tylenol) 650 mg PO Q4H PRN PRN Reason: Headache/Fever or Pain Allopurinol (Zyloprim) 100 mg PO DAILY [facility] Last Admin: 12/15/17 09:21 Dose: 100 mg Amlodipine Besylate (Norvasc) [address] [facility] Last Admin: 12/14/17 21:54 Dose: 10 mg Amlodipine Besylate (Norvasc) 2.[address] [facility] Last Admin: 12/14/17 21:54 Dose: 2.5 mg Atorvastatin Calcium (Lipitor) 20 mg PO DAILY [facility] Last Admin: 12/15/17 09:21 Dose: 20 mg Cholecalciferol (Vitamin D3) [facility] [place] Admin: 12/15/17 09:21 Dose: 2,000 units Dextrose/Water (Dextrose 50%) 25 gm SLOW IVP PRN PRN PRN Reason: Hypoglycemia Doxycycline Hyclate (Vibramycin) 100 mg PO BID [facility] Stop: 12/20/17 21:01 Glipizide (Glucotrol Xl) 5 [facility] Last Admin: 12/15/17 09:21 Dose: 5 mg Glucagon (Glucagon) 1 mg IM PRN PRN PRN Reason: Hypoglycemia Heparin Sodium (Porcine) (Heparin) 5,000 units SC TID [facility] Last Admin: 12/15/17 12:34 Dose: 5,000 units Dextrose/Water (D5w) 1,000 mls @ 0 mls/hr IV .Q0M PRN PRN Reason: Hypoglycemia Amiodarone HCl 450 mg/Miscellaneous Medication 1 each/ Dextrose/Water 259 mls @ 0 mls/hr IVPB INF [facility]; Protocol Last Admin: 12/14/17 14:54 Dose: 259 mls Insulin Human Lispro (Humalog) 0 units SC .MILD SLIDING SCALE PRN PRN Reason: Mild Correctional Scale Last Admin: 12/13/17 17:53 Dose: 3 unit Labetalol HCl (Normodyne) 10 mg SLOW IVP Q6H PRN PRN Reason: SBP GREATER THAN 160 Last Admin: 12/13/17 23:45 Dose: 2 ml Methylprednisolone Sodium Succinate (Solu-Medrol) 40 mg IVP BID [facility] Metoprolol Tartrate (Lopressor) 25 mg PO BID [facility] Last Admin: 12/15/17 09:21 Dose: 25 mg Mometasone Furoate/Formoterol Fumar (Dulera 200 Mcg/5 Mcg Inhaler) 2 puff INH BID-RT [facility] Last Admin: 12/15/17 07:03 Dose: 2 puff Ondansetron HCl (Zofran Odt) 4 mg PO Q6H PRN PRN Reason: Nausea/Vomiting Pantoprazole Sodium (Protonix) 40 mg PO BID [facility] Last Admin: 12/15/17 09:21 Dose: 40 mg Sodium Chloride (Flush - Normal Saline) 10 ml IVF Q12HR [facility] Last Admin: 12/15/17 09:22 Dose: Not Given Sodium Chloride (Flush - Normal Saline) 10 ml IVF PRN PRN PRN Reason: Saline Flush Zolpidem Tartrate (Ambien) 5 mg PO HSPRN PRN PRN Reason: Insomnia
[2017-12-15] MEDS: HumaLOG 300 UNITS/3 ML VIAL SC PRN ×2 (17:47→22:28)
[2017-12-15] MEDS: Doxycycline 100 MG CAP PO SCH (21:33)
[2017-12-15] MEDS: Amlodipine 5 MG TAB PO SCH (21:33)
[2017-12-15] MEDS: Amlodipine 10 MG TAB PO SCH (21:34)
[2017-12-15] MEDS: Amiodarone HCl 450 MG, Admixture Fee 1 EACH in Dextrose 5% in Water 250 ML IVPB SCH (22:28)
[2017-12-16] MEDS: HumaLOG 300 UNITS/3 ML VIAL SC PRN ×3 (06:04→21:51)
[2017-12-16 06:41] LABS: Chloride 105 mmol/L (98-107); Potassium 4.1 mmol/L (3.5-5.1); Sodium 135 mmol/L (136-145)
[2017-12-16 06:42] LABS: Calcium 8.8 mg/dL (7.8-10.44)
[2017-12-16 06:44] LABS: Anion Gap 13 mmol/L (10-20); Carbon Dioxide 21 mmol/L (23-31)
[2017-12-16 06:46] LABS: Calc. Creatinine Clearance 18 mL/min (70-130); Estimated GFR-MDRD 20
[2017-12-16 06:47] LABS: BUN (Urea Nitrogen) 58 mg/dL (9.8-20.1)
[2017-12-16 06:49] LABS: Glucose 385 mg/dL (83-110)
[2017-12-16] MEDS: Mometasone/Formoterol 120 PUFF INHALER INH SCH ×2 (06:55→19:00)
[2017-12-16] MEDS: Atorvastatin Calcium 20 MG TAB PO SCH (08:37)
[2017-12-16] MEDS: Allopurinol 100 MG TAB PO SCH (08:37)
[2017-12-16] MEDS: Doxycycline 100 MG CAP PO SCH ×2 (08:37→21:50)
[2017-12-16] MEDS: Metoprolol Tartrate 25 MG TAB PO SCH ×2 (08:38→21:51)
[2017-12-16] MEDS: Heparin 5,000 UNITS/ML VIAL SC SCH ×3 (08:40→21:51)
--- NOTE | 2017-12-16 08:53 | PRG ---
DATE OF SERVICE: 12/16/2017 This morning she is better. She is less short of breath, less cough. PHYSICAL EXAMINATION: VITAL SIGNS: Sats are 90% on 2 liters, respiration rate 18, temperature 97, blood pressure 158/72. CHEST: Minimal crackles, no wheezing. CARDIAC: Normal S1, S2. ABDOMEN: Soft, no masses. LABORATORY: Glucose 385, creatinine 2.36. BUN is 58. IMPRESSION: 1. Abnormal x-ray; interstitial edema. 2. Supraventricular tachycardia. 3. Diabetes. PLAN: The patient's cough is improved. Blood sugars have been elevated from the steroids which I am going to switch over to p.o. prednisone. Otherwise, continue Dulera, diuretics as per Cardiology. I will follow.
--- NOTE | 2017-12-16 12:23 | PRG ---
DATE OF SERVICE: 12/16/2017 SUBJECTIVE: An 87-year-old female being seen for acute kidney injury. The patient denies any nausea , vomiting, or chest pain. PHYSICAL EXAMINATION: GENERAL: Patient is awake, alert. VITAL SIGNS: Pulse 60, breathing 16, blood pressure 147/64. HEAD/NECK: Normocephalic. Atraumatic. EYES: EOMI. No deformity. EARS: Clear. No ulcers. NOSE: Intact. No lesions. MOUTH: Clear. No discharge. THROAT: Clear. No exudate. LUNGS: Clear. No crackles. CARDIAC: S1, S2. No rub. ABDOMEN: Benign. BS+. GENITALIA/RECTUM: Rivera absent. BACK/EXTREMITIES: Edema 0+ Ulcer- NEUROLOGICAL: Alert and motor intact. SKIN: Rash- Bruise- LYMPHATICS: Edema- Ulcer- LABORATORY DATA: Show hemoglobin 10.6, creatinine 2.3. ASSESSMENT AND RECOMMENDATIONS: 1. Acute kidney injury with chronic kidney disease stage 4, stable. 2. Creatinine has worsened. 3. Hypertension, stable. 4. Anemia, stable. We will follow renal function closely. No indication for dialysis. I would hayley id doxycycline as that can interfere creatinine as it is.
--- NOTE | 2017-12-16 12:44 | CON ---
DATE OF CONSULTATION: 12/14/2017 HISTORY OF PRESENT ILLNESS: This is an 87-year-old female from [place], [place], who has been in the hospital now here for several days, who has been having difficulty breathing, cough, and fever. X-ra y showed bilateral infiltrates; the reason for consultation. She apparently had a ventilation perfusion scan done on , which showed evidence of very low pulmo nary emboli. In the interim, she had an echocardiogram done, which also shows a normal ejection fraction. Right ventricular systolic pressure is elevated at 44. The patient states she is having difficulty breathing. She is coughing up sputum, which appears to b e relatively clear. The patient has had previous history of respiratory failure and pneumonia. She is a nonsmoker. No history of TB or asthma. PAST MEDICAL HISTORY: Otherwise, pertinent for extensive medical history. Pertinent for hyperlipide jamshid, hypertension, previous renal failure. 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 It is unclear what has transpired since then. PAST SURGICAL HISTORY: Previous surgeries otherwise included a previous access, previous aortic valv e replacement, tubal ligation, bladder sling surgery. MEDICATIONS: Medicine from home includes glipizide 2.5, Protonix 40, Lopressor 25, amlodipine 2.5, a llopurinol 100. She is now on amiodarone, Zithromax, and Levaquin adjusted for renal failure. REVIEW OF SYSTEMS: Otherwise unremarkable. PHYSICAL EXAMINATION: GENERAL: She is an elderly female, who is in mild distress. Awake, alert, responsive. Trace edema. VITAL SIGNS: Sats are 98 on 2 liters, pulse 73, blood pressure 107/71, respirations 16. CHEST: Bilateral crackles. No wheezing. CARDIAC: Normal S1, S2. No gallops or masses. LABORATORY DATA: White count 14,000, H&H 10 and 32, platelet count is normal. Creatinine is 2, BUN is 48, GFR is 23. Chest x-ray taken today shows cardiomegaly, bilateral infiltrates, , small pleural effusion. IMPRESSION: 1. Respiratory failure, abnormal x-ray. Appears more likely interstitial pulmonary edema rather lani n bronchopneumonia. 2. Nonsmoker. 3. Aortic valve surgery for 4. Recent gastric cancer diagnosis. 5. Advanced age. PLAN: She is already on broad-spectrum antibiotics. Continue with present antibiotic coverage. I h ave added low-dose steroids and neb treatments. We will follow. Consultation note, 70 minutes, 50% in direct patient care.
--- NOTE | 2017-12-16 17:28 | PDOC.PN ---
- Subjective Encounter Start Date: 12/16/17 Encounter Start Time: 17:26 Subjective: feels weak and tired today.denies any CP,abd pain.still SOB w exertion -: poor appetite - Objective Resuscitation Status: Resuscitation Status FULL:Full Resuscitation MAR Reviewed: Yes Vital Signs & Weight: Vital Signs (12 hours) Temp Pulse Resp BP Pulse Ox 12/16/17 15:26 97.5 F L 65 17 144/65 H 100 12/16/17 12:00 97.2 F L 60 19 147/64 H 98 12/16/17 07:41 97.8 F 68 18 158/72 H 99 12/16/17 07:00 97 12/16/17 06:55 66 16 99 Weight Weight 146 lb 6.4 oz I&O: 12/15/17 12/16/17 12/17/17 06:59 06:59 06:59 Intake Total 1161 100 640 Output Total 350 Balance 811 100 640 Result Diagrams: 12/14/17 13:19 12/16/17 05:44 Additional Labs: Accuchecks 12/16/17 12/16/17 12/15/17 11:09 05:12 20:59 POC Glucose 290 H 337 H 306 H 12/15/17 16:42 POC Glucose 295 H Microbiology 12/09/15 12:23 Urine Straight Catheter Urine Culture - Final Gram Negative Vishnu 12/02/17 11:26 Stool - Pending Stool Occult Blood (OPHELIA) - Final 12/12/17 07:14 Venous blood - Right Hand Blood Culture - Preliminary NO GROWTH AT 48 HOURS Laboratory Tests 12/12/17 12/12/17 12/13/17 05:00 05:00 05:20 Creatinine 1.97 H 2.05 H B-Natriuretic Peptide 685.5 H 12/14/17 12/15/17 12/16/17 13:19 05:35 05:44 Creatinine 2.05 H 2.36 H B-Natriuretic Peptide 697.5 H labs reviewed Phys Exam - Physical Examination weak and pale looking HEENT: PERRLA, sclera anicteric, oral pharynx no lesions slightly dry mucosa Neck: no nodes, no JVD, supple, full ROM Respiratory: no wheezing, no rales, no rhonchi, clear to auscultation bilateral Cardiovascular: RRR, no significant murmur Gastrointestinal: soft, non-tender, no distention, positive bowel sounds Musculoskeletal: no edema, pulses present Neurological: non-focal, normal sensation, moves all 4 limbs Psychiatric: normal affect, A&O x 3 Skin: no rash Dx/Plan (1) Acute and chronic respiratory failure with hypoxia Code(s): J96.21 - ACUTE AND CHRONIC RESPIRATORY FAILURE WITH HYPOXIA Status: Acute Comment: now on oxygen, elevated WBC, repeat chest xray showed no worseing, but persistant infiltrates in right lung (2) Acute renal failure superimposed on stage 4 chronic kidney disease Code(s): N17.9 - ACUTE KIDNEY FAILURE, UNSPECIFIED; N18.4 - CHRONIC KIDNEY DISEASE, STAGE 4 (SEVERE) Status: Resolved Comment: On dialysis for now, but now appears recovered (3) Pneumonia of both lower lobes Code(s): J18.9 - PNEUMONIA, UNSPECIFIED ORGANISM Status: Acute Comment: , continue on levaquin/Azithromycin, waiitng for sputum/ blood cultures. Continue nebs PRN, worseing SOb , now on oxygen, consulted Pulmonary. (4) Aortic valve prosthesis present Code(s): Z95.2 - PRESENCE OF PROSTHETIC HEART VALVE Status: Acute Comment: Cardiology consulted. Echo normal.Was on Amiodarone for Afib Rvr. .Stop now (5) Poorly controlled type 2 diabetes mellitus Code(s): E11.65 - TYPE 2 DIABETES MELLITUS WITH HYPERGLYCEMIA Status: Acute Comment: Will increase SSI and GLipizide to 5mg, closley monitor. (6) Dyslipidemia Code(s): E78.5 - HYPERLIPIDEMIA, UNSPECIFIED Status: Chronic (7) Gout Code(s): M10.9 - GOUT, UNSPECIFIED Status: Chronic (8) Hypertension Code(s): I10 - ESSENTIAL (PRIMARY) HYPERTENSION Status: Chronic Comment: Continue Home meds, keep systolic <135/85 (9) Physical deconditioning Code(s): R53.81 - OTHER MALAISE Status: Chronic (10) Gastric adenocarcinoma Code(s): C16.9 - MALIGNANT NEOPLASM OF STOMACH, UNSPECIFIED Status: Chronic Comment: OP follow up planned - Plan plan discussed w/ family, continue antibiotics, PT/OT, respiratory therapy, incentive spirometry, out of bed/ambulate, DVT proph w/SCDs worsening renal failure. does not appear fluid overloaded -: NSR now-stop amiodarone drip.change to PO -: add ensure,OT/PT. -: monitor H/H closely w recent GIB -: supportive care. p[oor prognosis w repeated acute issues & co morbidities * .will consult Palliative care * AM labs * hemodynamically stable Review of Systems - Review of Systems Constitutional: weakness, malaise. negative: fever, chills, sweats, other Respiratory: SOB with Excertion. negative: Cough, Dry, Shortness of Breath, Hemoptysis, Pleuritic Pain, Sputum, Wheezing Cardiovascular: negative: chest pain, palpitations, orthopnea, paroxysmal nocturnal dyspnea, edema, light headedness, other Gastrointestinal: negative: Nausea, Vomiting, Abdominal Pain, Diarrhea, Constipation, Melena, Hematochezia, Other Genitourinary: negative: Dysuria, Frequency, Incontinence, Hematuria, Retention , Other Musculoskeletal: negative: Neck Pain, Shoulder Pain, Arm Pain, Back Pain, Hand Pain, Leg Pain, Foot Pain, Other Skin: negative: Rash, Lesions, Hitesh, Bruising, Other Neurological: negative: Weakness, Numbness, Incoordination, Change in Speech, Confusion, Seizures, Other - Medications/Allergies Allergies/Adverse Reactions: Allergies Allergy/AdvReac Type Severity Reaction Status Date / Time cephalexin monohydrate Allergy Unknown tightness Verified 05/23/16 15:57 [From Keflex] in chest, difficulty breathing sulfamethoxazole Allergy Verified 12/03/17 14:55 [From Bactrim] trimethoprim [From Bactrim] Allergy Verified 12/03/17 14:55 Medications: Current Medications Acetaminophen (Tylenol) 650 mg PO Q4H PRN PRN Reason: Headache/Fever or Pain Allopurinol (Zyloprim) 100 mg PO DAILY [facility] Last Admin: 12/16/17 08:37 Dose: 100 mg Amlodipine Besylate (Norvasc) 10 mg PO HS [facility] Last Admin: 12/15/17 21:34 Dose: 10 mg Amlodipine Besylate (Norvasc) 2.5 mg PO HS [facility] Last Admin: 12/15/17 21:33 Dose: 2.5 mg Atorvastatin Calcium (Lipitor) 20 mg PO DAILY [facility] Last Admin: 12/16/17 08:37 Dose: 20 mg Cholecalciferol (Vitamin D3) [facility] Last Admin: 12/16/17 08:40 Dose: 2,000 units Dextrose/Water (Dextrose 50%) 25 gm SLOW IVP PRN PRN PRN Reason: Hypoglycemia Doxycycline Hyclate (Vibramycin) 100 mg PO BID [facility] Stop: 12/20/17 21:01 Last Admin: 12/16/17 08:37 Dose: 100 mg Glipizide (Glucotrol Xl) 5 mg [facility] Last Admin: 12/16/17 08:37 Dose: 5 mg Glucagon (Glucagon) 1 mg IM PRN PRN PRN Reason: Hypoglycemia Heparin Sodium (Porcine) (Heparin) 5,000 units SC TID [facility] Last Admin: 12/16/17 15:20 Dose: 5,000 units Dextrose/Water (D5w) 1,000 mls @ 0 mls/hr IV .Q0M PRN PRN Reason: Hypoglycemia Insulin Human Lispro (Humalog) 0 units SC .MILD SLIDING SCALE PRN PRN Reason: Mild Correctional Scale Last Admin: 12/16/17 17:15 Dose: 5 unit Insulin Human Lispro (Humalog) 0 units SC .BEDTIME SLIDING SC PRN; Protocol PRN Reason: BEDTIME SLIDING SCALE Last Admin: 12/16/17 06:04 Dose: 4 unit Labetalol HCl (Normodyne) 10 mg SLOW IVP Q6H PRN PRN Reason: SBP GREATER THAN 160 Last Admin: 12/13/17 23:45 Dose: 2 ml Metoprolol Tartrate (Lopressor) 25 mg PO BID [facility] Last Admin: 12/16/17 08:38 Dose: 25 mg Mometasone Furoate/Formoterol Fumar (Dulera 200 Mcg/5 Mcg Inhaler) 2 puff INH BID-RT [facility] Last Admin: 12/16/17 06:55 Dose: 2 puff Ondansetron HCl (Zofran Odt) 4 mg PO Q6H PRN PRN Reason: Nausea/Vomiting Pantoprazole Sodium (Protonix) 40 mg PO BID [facility] Last Admin: 12/16/17 08:38 Dose: 40 mg Prednisone (Prednisone) 20 mg [facility] Stop: 12/22/17 08:01 Sodium Chloride (Flush - Normal Saline) 10 ml IVF Q12HR [facility] Last Admin: 12/16/17 08:38 Dose: Not Given Sodium Chloride (Flush - Normal Saline) 10 ml IVF PRN PRN PRN Reason: Saline Flush Zolpidem Tartrate (Ambien) 5 mg PO HSPRN PRN PRN Reason: Insomnia
[2017-12-16] MEDS ORDERED: Amiodarone 200 MG TAB PO SCH (21:00)
[2017-12-16] MEDS: Amlodipine 5 MG TAB PO SCH (21:49)
[2017-12-16] MEDS: Amlodipine 10 MG TAB PO SCH (21:50)
--- NOTE | 2017-12-16 23:51 | PRG ---
DATE OF SERVICE: 12/16/2017 SUBJECTIVE: Ms. Bradford was seen and evaluated by Dr. George on . She was in atrial fibrill ation. She is on IV Cardizem. She converted back to sinus over the weekend. She currently appears weak. No current specific complaints present. PHYSICAL EXAMINATION: VITAL SIGNS: Blood pressure 144/65, pulse 65, temperature 97.5. LUNGS: Rhonchi and rales bilaterally. HEART: Regular rate and rhythm. ABDOMEN: Soft, nontender, nondistended. EXTREMITIES: No edema. PERTINENT LABORATORY DATA: Hemoglobin 10.6, creatinine 2.36 with GFR 20. IMPRESSION: 1. Atrial fibrillation, now sinus rhythm. 2. Bilateral pneumonia. 3. History of aortic valve replacement. RECOMMENDATIONS: 1. Ms. Bradford does have a normal LVEF on recent echo. Cannot proceed with Multaq or flecainide due to a low GFR. We will consider Multaq. Avoid anticoagulation therapy due to recent diagnosis of st omach cancer. The patient's daughter also states she had a large ulcer present in her gastric region and has been anemic. I discussed risks and benefits of anticoagulation therapy and stroke. At this point, the risk of stroke is lower than the risk of recurrent bleeding. 2. Discontinue IV amiodarone.
--- NOTE | 2017-12-17 06:03 | PDOC.CTH ---
Cardiology Progress Note - Subjective No specific complaints. Pt feels weak. - Objective Vital Signs Temp Pulse Resp BP BP Pulse Ox 12/17/17 04:00 97.7 F 60 18 148/64 H 95 12/16/17 23:55 71 137/60 12/16/17 21:50 71 158/67 H 12/16/17 21:49 71 158/67 H 12/16/17 20:00 97.7 F 71 20 158/67 H 94 L 12/16/17 19:00 66 18 96 Weight 146 lb 6.4 oz 12/15/17 12/16/17 12/17/17 06:59 06:59 06:59 Intake Total 1161 100 640 Output Total 350 Balance 811 100 640 - Physical Examination General/Neuro: alert & oriented x3, NAD Neck: no JVD present Lungs: CTA, unlabored respirations Heart: RRR Abdomen: NT/ND, soft Extremities: + femoral B - Labs Result Diagrams: 12/17/17 05:28 12/17/17 05:28 Troponin/CKMB CK-MB (CK-2) 2.2 ng/mL (0-6.6) 12/12/17 05:00 Troponin I 0.034 ng/mL (< 0.028) H 12/12/17 13:34 - Assessment/Plan Aafib Gastic cancer GI bleed Pt stable On multaq No ACT given recent diagnosis of gastric cancer and anemia with GI bleed from ulceration Pt and family understand the R/B of ACT vs CVA Pt in SR since saturday Ok to DC from CV standpoint
[2017-12-17 06:09] LABS: Bilirubin Negative (Negative); Blood, Urine Small (Negative); Clarity TURBID (Clear); Glucose, Urine (Dipstick) Negative (Negative); Leukocyte Large (Negative); Nitrite Negative (Negative); Protein, Urine (Dipstick) 100 mg/dL (Neg-Trace); Specific Gravity, Urine 1.014 (1.002-1.036); Urobilinogen 0.2 mg/dL (0.2-1.0)
[2017-12-17 06:12] LABS: Bacteria/HPF 4+ HPF (None Seen); Pathc Cast-AUWi Flag 1.92 (0-2.49); Squamous Epithelial 0-3 HPF (0-3)
[2017-12-17 06:27] LABS: Yeast-AUWi Flag 653.7 (0-25.0)
[2017-12-17 06:33] LABS: Anion Gap 15 mmol/L (10-20); BUN (Urea Nitrogen) 61 mg/dL (9.8-20.1); Calc. Creatinine Clearance 19 mL/min (70-130); Carbon Dioxide 21 mmol/L (23-31); Chloride 107 mmol/L (98-107); Estimated GFR-MDRD 21; Glucose 183 mg/dL (83-110); Sodium 139 mmol/L (136-145)
[2017-12-17 06:36] LABS: Yeast-All Forms 4+ HPF (None Seen)
[2017-12-17 06:39] LABS: Hyaline Casts/LPF NONE SEEN LPF (0-3 Hyaline)
[2017-12-17 06:48] LABS: #Lymphocytes 1.1 thou/uL (1.20-3.40); #Monocytes 1.2 thou/uL (0.11-0.59); #Neutrophils 11.8 thou/uL (1.40-6.50); %Basophils 0.1 % (0.0-1.0); %Eosinophils 0.2 % (0.0-10.0); %Lymphocytes 7.5 % (21.0-51.0); %Monocytes 8.4 % (0.0-10.0); %Neutrophils 83.9 % (42.0-75.0); Hemoglobin 10.8 g/dL (12.0-16.0); Mean Corpuscular HGB CONC 33.1 g/dL (32.0-36.0); Mean Corpuscular Volume 84.7 fL (78.0-98.0); Mean Platelet Volume 7.8 fL (7.4-10.4); Platelet Count 210 thou/uL (130-400); RBC Distribution Width 15.1 % (11.5-14.5); Red Blood Cell (RBC) Count 3.85 mill/uL (4.20-5.40)
[2017-12-17] MEDS: Mometasone/Formoterol 120 PUFF INHALER INH SCH ×2 (07:14→19:06)
--- NOTE | 2017-12-17 09:32 | PRG ---
DATE OF SERVICE: 12/17/2017 SUBJECTIVE: This morning, she is better, less cough, less shortness of breath. OBJECTIVE: VITAL SIGNS: Sats are 93% on room air, pulse is 61, temperature 97, blood pressure 136/64. CHEST: No wheezing or crackles. CARDIAC: Normal S1, S2. No gallops. ABDOMEN: Soft, no masses. IMPRESSION: Urinary tract infection, azotemia, cough and interstitial edema. PLAN: Continue present treatment, low dose prednisone, antibiotics. Eventually placement.
[2017-12-17] MEDS: Dronedarone HCl 400 MG TAB PO SCH ×2 (09:54→17:25)
[2017-12-17] MEDS: Metoprolol Tartrate 25 MG TAB PO SCH ×2 (09:55→20:46)
[2017-12-17] MEDS: Atorvastatin Calcium 20 MG TAB PO SCH (09:56)
[2017-12-17] MEDS: Allopurinol 100 MG TAB PO SCH (09:57)
[2017-12-17] MEDS: Doxycycline 100 MG CAP PO SCH ×2 (09:57→20:46)
[2017-12-17] MEDS: predniSONE 20 MG TAB PO SCH (09:59)
[2017-12-17] MEDS ORDERED: Metoprolol Tartrate 50 MG TAB PO SCH (10:00)
--- NOTE | 2017-12-17 10:37 | PRG ---
DATE OF SERVICE: 12/17/2017 SUBJECTIVE: This is an 87-year-old female being seen for acute kidney injury. The patient denies an y nausea, vomiting, or chest pain. PHYSICAL EXAMINATION: GENERAL: Patient is awake, alert. VITAL SIGNS: Afebrile 93, breathing 16, blood pressure was 137/64. HEAD/NECK: Normocephalic. Atraumatic. EYES: EOMI. No deformity. EARS: Clear. No ulcers. NOSE: Intact. No lesions. MOUTH: Clear. No discharge. THROAT: Clear. No exudate. LUNGS: Clear. No crackles. CARDIAC: S1, S2. No rub. ABDOMEN: Benign. BS+. GENITALIA/RECTUM: Rivera absent. BACK/EXTREMITIES: Edema 0+ Ulcer- NEUROLOGICAL: Alert and motor intact. SKIN: Rash- Bruise- LYMPHATICS: Edema- Ulcer- LABORATORY DATA: Show hemoglobin 10.8, creatinine 2.2. ASSESSMENT AND PLAN: 1. Chronic kidney disease stage 4, stable. 2. Hypertension. 3. Anemia, stable. 4. Medications based on glomerular filtration rate are appropriate. I will sign off on this patient. Please reconsult as needed.
[2017-12-17] MEDS: Heparin 5,000 UNITS/ML VIAL SC SCH ×2 (12:35→20:46)
--- NOTE | 2017-12-17 13:48 | PDOC.PN ---
- Subjective Encounter Start Date: 12/17/17 Encounter Start Time: 13:47 Subjective: reports that she feels about the same. no new complaints -: weak and tired.easily winded when walks - Objective Resuscitation Status: Resuscitation Status FULL:Full Resuscitation MAR Reviewed: Yes Vital Signs & Weight: Vital Signs (12 hours) Temp Pulse Pulse Resp BP BP BP 12/17/17 08:11 62 137/64 193/78 H 12/17/17 07:50 97.4 F L 61 18 137/64 12/17/17 07:27 12/17/17 07:14 69 16 12/17/17 04:00 97.7 F 60 18 148/64 H Pulse Ox 12/17/17 08:11 12/17/17 07:50 93 L 12/17/17 07:27 93 L 12/17/17 07:14 93 L 12/17/17 04:00 95 Weight Weight 141 lb 9.6 oz I&O: 12/16/17 12/17/17 12/18/17 06:59 06:59 06:59 Intake Total 100 760 Output Total 200 Balance 100 560 Result Diagrams: 12/17/17 05:28 12/17/17 05:28 Additional Labs: Accuchecks 12/17/17 12/17/17 12/16/17 10:48 05:33 20:44 POC Glucose 133 H 178 H 285 H 12/16/17 16:41 POC Glucose 325 H Microbiology 12/12/17 07:14 Venous blood - Right Hand Blood Culture - Final NO GROWTH IN 5 DAYS Laboratory Tests 12/12/17 12/15/17 12/17/17 05:00 05:35 05:28 B-Natriuretic Peptide 685.5 H 697.5 H 706.3 H Phys Exam - Physical Examination Constitutional: NAD pale,weak HEENT: PERRLA, sclera anicteric, oral pharynx no lesions slightly dry mucosa Neck: no nodes, no JVD, supple, full ROM Respiratory: no wheezing, no rales, no rhonchi, clear to auscultation bilateral Cardiovascular: RRR, no significant murmur Gastrointestinal: soft, non-tender, no distention, positive bowel sounds Musculoskeletal: no edema, pulses present Neurological: non-focal, normal sensation, moves all 4 limbs Psychiatric: normal affect, A&O x 3 Skin: no rash Dx/Plan (1) Pneumonia of both lower lobes Code(s): J18.9 - PNEUMONIA, UNSPECIFIED ORGANISM Status: Acute Comment: On Doxycycline, nebs prn,Prednisone.Clinically better (2) Acute renal failure superimposed on stage 4 chronic kidney disease Code(s): N17.9 - ACUTE KIDNEY FAILURE, UNSPECIFIED; N18.4 - CHRONIC KIDNEY DISEASE, STAGE 4 (SEVERE) Status: Acute Comment: Improving (3) Atrial fibrillation with RVR Code(s): I48.91 - UNSPECIFIED ATRIAL FIBRILLATION Status: Acute Comment: In NSR now. s/p IV amiodarone (4) Aortic valve prosthesis present Code(s): Z95.2 - PRESENCE OF PROSTHETIC HEART VALVE Status: Acute Comment: Cardiology consulted. Echo normal.Was on Amiodarone for Afib Rvr. .Stop now (5) Poorly controlled type 2 diabetes mellitus Code(s): E11.65 - TYPE 2 DIABETES MELLITUS WITH HYPERGLYCEMIA Status: Acute Comment: Will increase SSI and GLipizide to 5mg, closley monitor. (6) Dyslipidemia Code(s): E78.5 - HYPERLIPIDEMIA, UNSPECIFIED Status: Chronic (7) Gout Code(s): M10.9 - GOUT, UNSPECIFIED Status: Chronic (8) Hypertension Code(s): I10 - ESSENTIAL (PRIMARY) HYPERTENSION Status: Chronic Comment: Continue Home meds, keep systolic <135/85 (9) Physical deconditioning Code(s): R53.81 - OTHER MALAISE Status: Chronic (10) Gastric adenocarcinoma Code(s): C16.9 - MALIGNANT NEOPLASM OF STOMACH, UNSPECIFIED Status: Chronic Comment: OP follow up planned (11) Acute and chronic respiratory failure with hypoxia Code(s): J96.21 - ACUTE AND CHRONIC RESPIRATORY FAILURE WITH HYPOXIA Status: Resolved Comment: now on oxygen, elevated WBC, repeat chest xray showed no worseing, but persistant infiltrates in right lung - Plan plan discussed w/ family, continue antibiotics, PT/OT, respiratory therapy, incentive spirometry, out of bed/ambulate, DVT proph w/SCDs BP uncontrolled. Daughter reports taht she is on 50 mg of lopressor in am, -: will increase am dose of lopressor. -: Amio drip stopped.started on multaq. NSR now. OP cardiology f/u -: OK to DC clinically once accpeted at [facility].referral sent -: am labs.renal Fx stable.Change heparin to BID for CKD * .will give one dose of lasix today as BNP still high and some componenet of Diastolic CHF Review of Systems - Review of Systems Constitutional: weakness, malaise. negative: fever, chills, sweats, other ENT: negative: Ear Pain, Ear Discharge, Nose Pain, Nose Discharge, Nose Congestion, Mouth Pain, Mouth Swelling, Throat Pain, Throat Swelling, Other Respiratory: Cough, SOB with Excertion. negative: Dry, Shortness of Breath, Hemoptysis, Pleuritic Pain, Sputum, Wheezing Cardiovascular: negative: chest pain, palpitations, orthopnea, paroxysmal nocturnal dyspnea, edema, light headedness, other Gastrointestinal: negative: Nausea, Vomiting, Abdominal Pain, Diarrhea, Constipation, Melena, Hematochezia, Other Genitourinary: negative: Dysuria, Frequency, Incontinence, Hematuria, Retention , Other Musculoskeletal: negative: Neck Pain, Shoulder Pain, Arm Pain, Back Pain, Hand Pain, Leg Pain, Foot Pain, Other Skin: negative: Rash, Lesions, Hitesh, Bruising, Other Neurological: negative: Weakness, Numbness, Incoordination, Change in Speech, Confusion, Seizures, Other - Medications/Allergies Allergies/Adverse Reactions: Allergies Allergy/AdvReac Type Severity Reaction Status Date / Time cephalexin monohydrate Allergy Unknown tightness Verified 05/23/16 15:57 [From Keflex] in chest, difficulty breathing sulfamethoxazole Allergy Verified 12/03/17 14:55 [From Bactrim] trimethoprim [From Bactrim] Allergy Verified 12/03/17 14:55 Medications: Current Medications Acetaminophen (Tylenol) 650 mg PO Q4H PRN PRN Reason: Headache/Fever or Pain Allopurinol (Zyloprim) 100 mg PO DAILY [facility] Last Admin: 12/17/17 09:57 Dose: 100 mg Amlodipine Besylate (Norvasc) 10 mg PO HS [facility] Last Admin: 12/16/17 21:50 Dose: 10 mg Amlodipine Besylate (Norvasc) 2.5 mg PO HS [facility] Last Admin: 12/16/17 21:49 Dose: 2.5 mg Atorvastatin Calcium (Lipitor) 20 mg PO DAILY [facility] Last Admin: 08/28/18 09:56 Dose: 20 mg Cholecalciferol (Vitamin D3) [facility] [place] Admin: 12/17/17 09:56 Dose: 2,000 units Dextrose/Water (Dextrose 50%) 25 gm SLOW IVP PRN PRN PRN Reason: Hypoglycemia Doxycycline Hyclate (Vibramycin) 100 mg PO BID [facility] Stop: 12/20/17 21:01 Last Admin: 12/17/17 09:57 Dose: 100 mg Dronedarone (Multaq) 400 mg PO BID[facility] Last Admin: 12/17/17 09:54 Dose: 400 mg Glipizide (Glucotrol Xl) [address] [facility] Last Admin: 12/17/17 09:55 Dose: 5 mg Glucagon (Glucagon) 1 mg IM PRN PRN PRN Reason: Hypoglycemia Heparin Sodium (Porcine) (Heparin) 5,000 units SC BID [facility] Dextrose/Water (D5w) 1,000 mls @ 0 mls/hr IV .Q0M PRN PRN Reason: Hypoglycemia Insulin Human Lispro (Humalog) 0 units SC .MILD SLIDING SCALE PRN PRN Reason: Mild Correctional Scale Last Admin: 12/16/17 17:15 Dose: 5 unit Insulin Human Lispro (Humalog) 0 units SC .BEDTIME SLIDING SC PRN; Protocol PRN Reason: BEDTIME SLIDING SCALE Last Admin: 12/16/17 21:51 Dose: 3 unit Labetalol HCl (Normodyne) 10 mg SLOW IVP Q6H PRN PRN Reason: SBP GREATER THAN 160 Last Admin: 12/13/17 23:45 Dose: 2 ml Metoprolol Tartrate (Lopressor) 50 mg PO QAM [facility] Metoprolol Tartrate (Lopressor) 25 mg PO QPM [facility] Mometasone Furoate/Formoterol Fumar (Dulera 200 Mcg/5 Mcg Inhaler) 2 puff INH BID-RT [facility] Last Admin: 12/17/17 07:14 Dose: 2 puff Pantoprazole Sodium (Protonix) 40 mg PO BID [facility] Last Admin: 12/17/17 09:57 Dose: 40 mg Prednisone (Prednisone) 20 mg PO [facility] Stop: 12/22/17 08:01 Last Admin: 12/17/17 09:59 Dose: Not Given Sodium Chloride (Flush - Normal Saline) 10 ml IVF Q12HR [facility] Last Admin: 12/17/17 09:59 Dose: 10 ml Sodium Chloride (Flush - Normal Saline) 10 ml IVF PRN PRN PRN Reason: Saline Flush Zolpidem Tartrate (Ambien) 5 mg PO HSPRN PRN PRN Reason: Insomnia
[2017-12-17] MEDS ORDERED: Furosemide 20 MG/2 ML VIAL SLOW IVP SCH (14:00)
[2017-12-17] MEDS: Amlodipine 10 MG TAB PO SCH (20:46)
[2017-12-18 06:02] LABS: Anion Gap 13 mmol/L (10-20); BUN (Urea Nitrogen) 68 mg/dL (9.8-20.1); Calc. Creatinine Clearance 18 mL/min (70-130); Carbon Dioxide 24 mmol/L (23-31); Chloride 107 mmol/L (98-107); Estimated GFR-MDRD 20; Potassium 3.7 mmol/L (3.5-5.1); Sodium 140 mmol/L (136-145)
[2017-12-18 06:04] LABS: Glucose 51 mg/dL (83-110)
[2017-12-18] MEDS: Mometasone/Formoterol 120 PUFF INHALER INH SCH ×2 (07:12→18:55)
[2017-12-18] MEDS ORDERED: Metoprolol Tartrate 50 MG TAB PO SCH (09:00)
--- NOTE | 2017-12-18 09:30 | PRG ---
DATE OF SERVICE: 12/18/2017 This morning she is better, less cough, less shortness of breath. PHYSICAL EXAMINATION: VITAL SIGNS: Sats are 90% on room air, respiration 20, temperature 97, pulse 59, blood pressure is 1 53/67. CHEST: No wheezing, crackles. CARDIAC: Normal S1, S2. No gallops. ABDOMEN: Soft, no masses. LABORATORY DATA: Creatinine 2.32, glucose is slightly low. IMPRESSION: 1. Azotemia, chronic. 2. Cough, much improved. 3. Atrial fibrillation. 4. Gastrointestinal bleed. PLAN: Pulmonary-florian, she is stable enough to be transferred to [place]. I would taper the prednis one over several days, Dulera as needed.
[2017-12-18] MEDS: Dronedarone HCl 400 MG TAB PO SCH ×2 (09:33→17:07)
[2017-12-18] MEDS: Allopurinol 100 MG TAB PO SCH (09:33)
[2017-12-18] MEDS: Atorvastatin Calcium 20 MG TAB PO SCH (09:33)
[2017-12-18] MEDS: Doxycycline 100 MG CAP PO SCH ×2 (09:33→21:47)
[2017-12-18] MEDS: predniSONE 20 MG TAB PO SCH (09:33)
[2017-12-18] MEDS: Heparin 5,000 UNITS/ML VIAL SC SCH ×2 (09:37→21:47)
--- NOTE | 2017-12-18 09:43 | PRG ---
DATE OF SERVICE: 12/18/2017. SUBJECTIVE: This is an 87-year-old female being seen for acute kidney injury. The patient denies an y nausea, vomiting, or chest pain. PHYSICAL EXAMINATION: GENERAL: Patient is awake, alert. VITAL SIGNS: Afebrile, pulse , breathing at 16, blood pressure . GENERAL APPEARANCE AND MENTAL STATUS: Fair. HEAD/NECK: Normocephalic. Atraumatic. EYES: EOMI. No deformity. EARS: Clear. No ulcers. NOSE: Intact. No lesions. MOUTH: Clear. No discharge. THROAT: Clear. No exudate. LUNGS: Clear. No crackles. CARDIAC: S1, S2. No rub. ABDOMEN: Benign. BS+. GENITALIA/RECTUM: Rivera absent. BACK/EXTREMITIES: Edema 0+ Ulcer-. NEUROLOGICAL: Alert and motor intact. SKIN: Rash- Bruise- LYMPHATICS: Edema- Ulcer-. LABORATORY DATA: Show hemoglobin 10.8, creatinine 2.3. ASSESSMENT AND RECOMMENDATIONS: 1. Acute kidney injury, chronic kidney disease stage 4, stable. 2. Hypertension, stable. 3. Anemia, stable. 4. Medication based on GFR are appropriate. No indication for dialysis at this time.
[2017-12-18] MEDS ORDERED: MEROPENEM 1 GM/50 ML 1 GM in Premix Bag 1 BAG IVPB SCH (14:00)
[2017-12-18] MEDS ORDERED: Meropenem 1 GM in Sodium Chloride 0.9% 100 ML IVPB SCH (14:00)
--- NOTE | 2017-12-18 14:45 | PDOC.PN ---
- Subjective Encounter Start Date: 12/18/17 Encounter Start Time: 14:43 Subjective: feels about the same.no new complaints.very weak but appetite better -: no CP/SOB.SOB w exertion - Objective Resuscitation Status: Resuscitation Status FULL:Full Resuscitation MAR Reviewed: Yes Vital Signs & Weight: Vital Signs (12 hours) Temp Pulse Resp BP BP Pulse Ox 12/18/17 11:51 97.7 F 60 18 144/60 H 98 12/18/17 07:45 97.4 F L 59 L 20 153/67 H 99 12/18/17 04:00 97.6 F 55 L 20 150/66 H 93 L Weight Weight 143 lb 9.6 oz I&O: 12/17/17 12/18/17 12/19/17 06:59 06:59 06:59 Intake Total 760 120 Output Total 200 Balance 560 120 Result Diagrams: 12/17/17 05:28 12/18/17 04:42 Additional Labs: Accuchecks 12/18/17 12/18/17 12/18/17 11:08 06:28 06:15 POC Glucose 132 H 67 L 71 12/18/17 12/17/17 12/17/17 05:41 20:39 17:06 POC Glucose 59 L* 77 84 Microbiology 12/12/17 07:14 Venous blood - Right Hand Blood Culture - Final NO GROWTH IN 5 DAYS Phys Exam - Physical Examination Constitutional: NAD HEENT: PERRLA, moist MMs, sclera anicteric, oral pharynx no lesions Neck: no nodes, no JVD, supple, full ROM Respiratory: no wheezing, no rales, no rhonchi, clear to auscultation bilateral Cardiovascular: RRR, no significant murmur, no rub Gastrointestinal: soft, non-tender, no distention, positive bowel sounds Musculoskeletal: no edema, pulses present Neurological: non-focal, normal sensation, moves all 4 limbs Psychiatric: normal affect, A&O x 3 Skin: no rash Dx/Plan (1) Pneumonia of both lower lobes Code(s): J18.9 - PNEUMONIA, UNSPECIFIED ORGANISM Status: Acute Comment: On Doxycycline, nebs prn,Prednisone.Clinically better (2) Acute renal failure superimposed on stage 4 chronic kidney disease Code(s): N17.9 - ACUTE KIDNEY FAILURE, UNSPECIFIED; N18.4 - CHRONIC KIDNEY DISEASE, STAGE 4 (SEVERE) Status: Acute Comment: Improving (3) Atrial fibrillation with RVR Code(s): I48.91 - UNSPECIFIED ATRIAL FIBRILLATION Status: Acute Comment: In NSR now. s/p IV amiodarone (4) Aortic valve prosthesis present Code(s): Z95.2 - PRESENCE OF PROSTHETIC HEART VALVE Status: Acute Comment: Cardiology consulted. Echo normal.Was on Amiodarone for Afib Rvr. .Stopped and started on Multaq (5) Poorly controlled type 2 diabetes mellitus Code(s): E11.65 - TYPE 2 DIABETES MELLITUS WITH HYPERGLYCEMIA Status: Acute Comment: SSI and GLipizide to 5mg, [facility] monitor.Blood sugar low this morning (6) Dyslipidemia Code(s): E78.5 - HYPERLIPIDEMIA, UNSPECIFIED Status: Chronic (7) Gout Code(s): M10.9 - GOUT, UNSPECIFIED Status: Chronic (8) Hypertension Code(s): I10 - ESSENTIAL (PRIMARY) HYPERTENSION Status: Chronic Comment: Continue Home meds, keep systolic <135/85 (9) Physical deconditioning Code(s): R53.81 - OTHER MALAISE Status: Chronic (10) Gastric adenocarcinoma Code(s): C16.9 - MALIGNANT NEOPLASM OF STOMACH, UNSPECIFIED Status: Chronic Comment: OP follow up planned (11) Acute and chronic respiratory failure with hypoxia Code(s): J96.21 - ACUTE AND CHRONIC RESPIRATORY FAILURE WITH HYPOXIA Status: Resolved Comment: now on oxygen, elevated WBC, repeat chest xray showed no worseing, but persistant infiltrates in right lung - Plan continue antibiotics, PT/OT, respiratory therapy, incentive spirometry, out of bed/ambulate, DVT proph w/SCDs Discussed w Cardiology-HR on lower side.Metoprolol increased yesterday per -: request for home dose.Will reduce Bb and cont Multaq @ same dose -: Clinically stable & OK to DC to rehab when accepted -: oxygenation better w 1 dose lasix yesterday. -: am labs if still here * . Review of Systems - Review of Systems Constitutional: weakness, malaise. negative: fever, chills, sweats, other Respiratory: negative: Cough, Dry, Shortness of Breath, Hemoptysis, SOB with Excertion, Pleuritic Pain, Sputum, Wheezing Cardiovascular: negative: chest pain, palpitations, orthopnea, paroxysmal nocturnal dyspnea, edema, light headedness, other Gastrointestinal: negative: Nausea, Vomiting, Abdominal Pain, Diarrhea, Constipation, Melena, Hematochezia, Other Genitourinary: negative: Dysuria, Frequency, Incontinence, Hematuria, Retention , Other Musculoskeletal: negative: Neck Pain, Shoulder Pain, Arm Pain, Back Pain, Hand Pain, Leg Pain, Foot Pain, Other Skin: negative: Rash, Lesions, Hitesh, Bruising, Other Neurological: negative: Weakness, Numbness, Incoordination, Change in Speech, Confusion, Seizures, Other - Medications/Allergies Allergies/Adverse Reactions: Allergies Allergy/AdvReac Type Severity Reaction Status Date / Time cephalexin monohydrate Allergy Unknown tightness Verified 05/23/16 15:57 [From Keflex] in chest, difficulty breathing sulfamethoxazole Allergy Verified 12/03/17 14:55 [From Bactrim] trimethoprim [From Bactrim] Allergy Verified 12/03/17 14:55 Medications: Current Medications Acetaminophen (Tylenol) 650 mg PO Q4H PRN PRN Reason: Headache/Fever or Pain Allopurinol (Zyloprim) 100 mg PO DAILY [facility] Last Admin: 12/18/17 09:33 Dose: 100 mg Amlodipine Besylate (Norvasc) 10 mg PO HS [facility] Last Admin: 12/17/17 20:46 Dose: 10 mg Atorvastatin Calcium (Lipitor) 20 mg PO DAILY [facility] Last Admin: 12/18/17 09:33 Dose: 20 mg Cholecalciferol (Vitamin D3) [facility] Last Admin: 12/18/17 09:32 Dose: 2,000 units Dextrose/Water (Dextrose 50%) 25 gm SLOW IVP PRN PRN PRN Reason: Hypoglycemia Doxycycline Hyclate (Vibramycin) 100 mg PO BID [facility] Stop: 12/20/17 21:01 Last Admin: 12/18/17 09:33 Dose: 100 mg Dronedarone (Multaq) 400 mg PO BID[facility] Last Admin: 12/18/17 09:33 Dose: 400 mg Glipizide (Glucotrol Xl) 5 mg PO QAM[facility] Last Admin: 12/18/17 09:35 Dose: Not Given Glucagon (Glucagon) 1 mg IM PRN PRN PRN Reason: Hypoglycemia Heparin Sodium (Porcine) (Heparin) 5,000 units SC BID [facility] Last Admin: 12/18/17 09:37 Dose: 5,000 units Dextrose/Water (D5w) 1,000 mls @ 0 mls/hr IV .Q0M PRN PRN Reason: Hypoglycemia Meropenem 500 mg/ Sodium (Chloride) 100 mls @ 200 mls/hr IVPB 0200,1400 [facility] Insulin Human Lispro (Humalog) 0 units SC .MILD SLIDING SCALE PRN PRN Reason: Mild Correctional Scale Last Admin: 12/16/17 17:15 Dose: 5 unit Insulin Human Lispro (Humalog) 0 units SC .BEDTIME SLIDING SC PRN; Protocol PRN Reason: BEDTIME SLIDING SCALE Last Admin: 12/16/17 21:51 Dose: 3 unit Labetalol HCl (Normodyne) 10 mg SLOW IVP Q6H PRN PRN Reason: SBP GREATER THAN 160 Last Admin: 12/13/17 23:45 Dose: 2 ml Metoprolol Tartrate (Lopressor) 25 mg PO QPM [facility] Last Admin: 12/17/17 20:46 Dose: Not Given Metoprolol Tartrate (Lopressor) [facility] Mometasone Furoate/Formoterol Fumar (Dulera 200 Mcg/5 Mcg Inhaler) 2 puff INH BID-RT [facility] Last Admin: 12/18/17 07:12 Dose: 2 puff Pantoprazole Sodium (Protonix) 40 mg PO BID [facility] Last Admin: 12/18/17 09:33 Dose: 40 mg Prednisone (Prednisone) 20 mg PO QAM[facility] Stop: 12/22/17 08:01 Last Admin: 12/18/17 09:33 Dose: 20 mg Sodium Chloride (Flush - Normal Saline) 10 ml IVF Q12HR [facility] Last Admin: 12/18/17 09:34 Dose: 10 ml Sodium Chloride (Flush - Normal Saline) 10 ml IVF PRN PRN PRN Reason: Saline Flush Zolpidem Tartrate (Ambien) 5 mg PO HSPRN PRN PRN Reason: Insomnia
[2017-12-18] MEDS: Meropenem 500 MG in Sodium Chloride 0.9% 100 ML IVPB SCH (14:49)
[2017-12-18] MEDS: Amlodipine 10 MG TAB PO SCH (21:47)
[2017-12-18] MEDS: Metoprolol Tartrate 25 MG TAB PO SCH (21:47)
[2017-12-19] MEDS: Meropenem 500 MG in Sodium Chloride 0.9% 100 ML IVPB SCH (01:31)
[2017-12-19 07:22] LABS: Anion Gap 15 mmol/L (10-20); BUN (Urea Nitrogen) 66 mg/dL (9.8-20.1); Calc. Creatinine Clearance 17 mL/min (70-130); Calcium 8.7 mg/dL (7.8-10.44); Carbon Dioxide 23 mmol/L (23-31); Chloride 106 mmol/L (98-107); Estimated GFR-MDRD 19; Glucose 167 mg/dL (83-110); Potassium 4.3 mmol/L (3.5-5.1); Sodium 140 mmol/L (136-145)
[2017-12-19] MEDS: Doxycycline 100 MG CAP PO SCH (08:28)
[2017-12-19] MEDS: Dronedarone HCl 400 MG TAB PO SCH (08:28)
[2017-12-19] MEDS: Allopurinol 100 MG TAB PO SCH (08:28)
[2017-12-19] MEDS: predniSONE 20 MG TAB PO SCH (08:28)
[2017-12-19] MEDS: Atorvastatin Calcium 20 MG TAB PO SCH (08:30)
[2017-12-19] MEDS: Heparin 5,000 UNITS/ML VIAL SC SCH (08:31)
[2017-12-19] MEDS ORDERED: Metoprolol Tartrate 25 MG TAB PO SCH (09:00)
[2017-12-19] MEDS: Mometasone/Formoterol 120 PUFF INHALER INH SCH (10:12)
--- NOTE | 2017-12-19 11:25 | PRG ---
DATE OF SERVICE: 12/19/2017 SUBJECTIVE: This morning, she is awake, alert, and responsive, less cough. OBEJCTIVE: VITAL SIGNS: Sats are 95% on room air, pulse 82, temperature 97, blood pressure 130\72. CHEST: Decreased breath sounds. No wheezing. CARDIAC: Normal S1, S2. No gallops. ABDOMEN: Soft without masses. LABORATORY DATA: Creatinine 2.47 and BUN of 66. IMPRESSION: 1. Azotemia, improving. 2. Supraventricular tachycardia. 3. Bronchitis, improved. She will be transferred today to a swing bed in [place]. We will follow. OZZIE
[2017-12-19 12:49] VITALS: BP 142/65; TEMP 97.5
--- NOTE | 2017-12-19 23:12 | DIS ---
PRIMARY CARE PHYSICIAN: Arias Hu MD DATE OF ADMISSION: 12/12/2017 DATE OF DISCHARGE: 12/19/2017 DISCHARGE DISPOSITION: [facility] bed for SNF placement. DISCHARGE DIAGNOSES: 1. Acute on chronic respiratory failure with hypoxia, resolved. 2. Urinary tract infection. 3. Pneumonia, bilateral, resolved. 4. Acute on chronic kidney insufficiency, resolved. 5. Atrial fibrillation with rapid ventricular response, resolved with normal sinus rhythm now. 6. History of prosthetic aortic valve. 7. 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. 8. Dyslipidemia. 9. Gout. 10. Hypertension. 11. Deconditioning. 12. Gastric adenocarcinoma, which is a new diagnosis for the patient at the time of her last hospita lization. The patient needs to follow up with Oncology as an outpatient. DISCHARGE MEDICATIONS: Glipizide 2.5 mg in the morning; Protonix 40 mg b.i.d.; vitamin D3, 2000 unit s daily; Lipitor 20 mg daily; allopurinol 100 mg daily; prednisone 10 mg daily; Glucotrol XL 5 mg shea ly; Protonix 40 mg p.o. b.i.d.; Dulera 200/5 two puffs b.i.d.; Lopressor 25 mg in the morning and 25 mg in the evening, please note that Lopressor dose has been changed from 50 mg in the morning to 25 m g in the morning; meropenem 500 mg b.i.d. for 5 more days; subcutaneous heparin 5000 units b.i.d. for DVT prophylaxis; Multaq 400 mg p.o. b.i.d.; cholecalciferol 2000 units daily; amlodipine 10 mg at be dtime, dose has been changed from 2.5 mg at bedtime; and Tylenol as needed p.r.n. CONSULTATIONS IN-HOUSE: 1. Nephrology, Dr. Ordaz. 2. Pulmonary Medicine. 3. Cardiology, Dr. Reyes. PROCEDURES DONE IN THE HOSPITAL: 1. Pulmonary perfusion scan on 12/12/2017, which is very low probability for pulmonary embolism. 2. Transthoracic echocardiogram, which shows EF of 60%-65%, moderate mitral and tricuspid regurgitat ion. 3. Placement of a PICC line due to poor IV access. HISTORY OF PRESENTING ILLNESS: Ms. Bradford is an 87-year-old female who presented to the hospital wi complaints of shortness of breath and was found to have bilateral pneumonia on a chest x-ray done in the emergency room. She was recently admitted to our facility earlier this month on 12/02/2017 an d was discharged on 12/08/2017. During that hospitalization, she was seen for acute anemia and melen a and was found to have gastric carcinoma. Oncology followed her in the hospital and the plan was to get her seen as an outpatient for possible treatment. She was also seen by GI at that admission as well. Please see admission history and physical for further details. HOSPITAL COURSE: Shortly after hospitalization, the patient went into atrial fibrillation with RVR. Cardiology was consulted and echo was done. She has history of bioprosthetic aortic valve. She was started on amiodarone drip and later it was changed to oral Multaq by Dr. Reyes. Her metoprolol dose was adjusted as some bradycardia was noticed. Dr. Bangura saw her from the Pulmonary Department for pneumonia and eventually she was weaned off IV ant ibiotics to oral antibiotics, which she finished with doxycycline while in the hospital. Cultures we re obtained and blood culture was negative x5. She was found to have some dysuria and a urinalysis was checked on 12/17/2017, which showed positive bacteria, so it was sent to culture and she was started on empiric antibiotic. She was allergic to S ULFA as well as CEPHALEXIN, and Levaquin was avoided because of her being on Multaq and metoprolol to prevent QT prolongation. She was started on IV meropenem and culture was showing gram-negative rods at the time of discharge. She will finish the course of 5 more days of IV meropenem at the skilled rehabilitation. Eventually, the patient was stabilized to the point where her medical condition was better. She need ed rehabilitation, so correction facility was arranged for her, and as of this morning, she has been accepted. She has been cleared for discharge by Cardiology as well as Pulmonary Medicine. She was also seen by Nephrology while in the hospital for acute on chronic kidney insufficiency and e ventually her kidney function has stabilized. She was seen and examined prior to discharge. PHYSICAL EXAMINATION: This morning, VITAL SIGNS: Temperature 97.5, pulse of 60, respirations 18, saturating 95% on room air, blood press ure 142/65. GENERAL: No acute distress. Awake, alert, oriented x3. Daughter is in the room at bedside. Discha rge plan was discussed with them and they verbalized understanding. CHEST: Clear to auscultation without any wheezing, rales, or rhonchi. HEART: Rate and rhythm are regular without any murmur, rubs, or gallops. Total time spent in the discharge of this patient, 36 minutes.
--- NOTE | 2017-12-19 23:56 | PRG ---
DATE OF SERVICE: 12/19/2017 SUBJECTIVE: This is an 87-year-old female being seen for acute kidney injury. The patient denies an y nausea, vomiting, or chest pain. OBJECTIVE: VITAL SIGNS: . GENERAL APPEARANCE AND MENTAL STATUS: Awake, alert, in no acute distress. Fair. HEAD/NECK: Normocephalic. Atraumatic. EYES: EOMI. No deformity. EARS: Clear. No ulcers. NOSE: Intact. No lesions. MOUTH: Clear. No discharge. THROAT: Clear. No exudate. LUNGS: Clear. No crackles. CARDIAC: S1, S2. No rub. ABDOMEN: Benign. BS+. GENITALIA/RECTUM: Rivera absent. BACK/EXTREMITIES: Edema 0+ Ulcer- NEUROLOGICAL: Alert and motor intact. SKIN: Rash- Bruise- LYMPHATICS: Edema- Ulcer- LABORATORY DATA: 10.8 and creatinine 2.4. ASSESSMENT: 1. Chronic kidney disease stage 4, stable. 2. Hypertension, stable. 3. Medications based on glomerular filtration rate are appropriate. The patient will follow up to see me in 1 month.
[2017-12-20] MEDS ORDERED: predniSONE 20 MG TAB PO SCH (08:00)
== END 2017-12-19 14:03 | DRG 193 ==
LOC: ERS 04:17 → 2NO 06:20
PROVIDERS: ADMIT Internal Medicine; ATTEND Internal Medicine
PROC: 02HV33Z Insertion of Infusion Device into Superior Vena Cava, Percutaneous Approach (ICD-10-PCS; principal; 2017-12-15)
DX: J18.9 Pneumonia, unspecified organism (principal); J96.21 Acute and chronic respiratory failure with hypoxia; N18.4 Chronic kidney disease, stage 4 (severe); C16.9 Malignant neoplasm of stomach, unspecified; E87.2 Acidosis; I47.1 Supraventricular tachycardia; N17.9 Acute kidney failure, unspecified; N39.0 Urinary tract infection, site not specified; I48.91 Unspecified atrial fibrillation; E11.22 Type 2 diabetes mellitus with diabetic chronic kidney disease; I12.9 Hypertensive chronic kidney disease with stage 1 through stage 4 chronic kidney disease, or unspecified chronic kidney disease; D50.9 Iron deficiency anemia, unspecified; I25.10 Atherosclerotic heart disease of native coronary artery without angina pectoris; E11.65 Type 2 diabetes mellitus with hyperglycemia; E78.5 Hyperlipidemia, unspecified; M10.9 Gout, unspecified; E66.9 Obesity, unspecified; Z95.3 Presence of xenogenic heart valve; Z79.84 Long term (current) use of oral hypoglycemic drugs; Z88.1 Allergy status to other antibiotic agents; Z88.2 Allergy status to sulfonamides; Z68.26 Body mass index [BMI] 26.0-26.9, adult
CPT/HCPCS: 36415; 36416; 36430; 36569; 71045; 78582; 80048; 80053; 81003; 81015; 82248; 82378; 82553; 82805; 83615; 83735; 83880; 84100; 84443; 84484; 84550; 85014; 85018; 85025; 85379; 86850; 86900; 86901; 87040; 87077; 87086; 87186; 93005; 93010; 93306; 93970; 94760; 96365; A4216; A9540; A9558; C1751; G8978-GP-CL; G8979-GP-CJ; G8987-GO-CM; G8988-GO-CJ; J0282; J0456; J1644; J1940; J1956; J2185; J2920; J3370; J3490; J7050; J7070; J7506; P9016

== ENCOUNTER 2018-01-26 06:46 | Inpatient (IN) | payer MEDICARE ==
[2018-01-26 07:50] LABS: Hemoglobin 5.5 g/dL (12.0-16.0); Mean Corpuscular HGB CONC 31.6 g/dL (32.0-36.0); Mean Corpuscular Volume 91.9 fL (78.0-98.0); Mean Platelet Volume 9.2 fL (7.4-10.4); Platelet Count 244 thou/uL (130-400); RBC Distribution Width 18.3 % (11.5-14.5); Red Blood Cell (RBC) Count 1.89 mill/uL (4.20-5.40); White Blood Cell (WBC) Count 17.4 thou/uL (4.8-10.8)
[2018-01-26 07:51] LABS: INR-International Normal Ratio 1.1; PTT 28.1 SEC (22.9-36.1); Prothrombin Time 14.6 SEC (12.0-14.7)
[2018-01-26 07:55] LABS: ALT (SGPT) 79 U/L (8-55); AST (SGOT) 78 U/L (5-34); Albumin 3.3 g/dL (3.4-4.8); Alkaline Phosphatase 216 U/L (40-150); Anion Gap 18 mmol/L (10-20); BUN (Urea Nitrogen) 96 mg/dL (9.8-20.1); Bilirubin, Total 0.5 mg/dL (0.2-1.2); CK (CPK) 19 U/L (29-168); Calc. Creatinine Clearance 0 mL/min (70-130); Carbon Dioxide 21 mmol/L (23-31); Chloride 102 mmol/L (98-107); Estimated GFR-MDRD 12; Globulin 2.6 g/dL (2.4-3.5); Glucose 206 mg/dL (83-110); Lipase 71 U/L (8-78); Potassium 3.8 mmol/L (3.5-5.1); Protein, Total 5.9 g/dL (6.0-8.3); Sodium 137 mmol/L (136-145)
[2018-01-26 08:01] LABS: CKMB 1.2 ng/mL (0-6.6); Troponin I Less than 0.010 ng/mL (< 0.028)
[2018-01-26] MEDS ORDERED: Pantoprazole 40 MG VIAL ONE (08:10)
[2018-01-26 08:18] LABS: #Eosinphils 0.2 thou/uL (0.0-0.7); #Lymphocytes 1.6 thou/uL (1.20-3.40); #Monocytes 1.1 thou/uL (0.11-0.59); #Neutrophils 14.4 thou/uL (1.40-6.50); %Basophils 0.1 % (0.0-1.0); %Eosinophils 1.4 % (0.0-10.0); %Lymphocytes 9.3 % (21.0-51.0); %Neutrophils 83.1 % (42.0-75.0); Lymphocytes 4 % (21-51); MDiff Complete? YES; Macrocytosis SLIGHT = 6-15 cells (100X) (0-5/hpf); Microcytosis MODERATE=15-30 cells (100X) (0-5/hpf); Monocytes 4 % (0-10); Neutrophil 92 % (42-75); PLT Morphology Comment Appears Adequate; Polychromasia SLIGHT = 2-3 cells (100X) (0-2/hpf)
[2018-01-26] MEDS ORDERED: Chloraseptic Spray 180 ml Bottle PO PRN (11:29)
[2018-01-26] MEDS ORDERED: Acetaminophen 325 MG TAB PO PRN (11:29)
[2018-01-26] MEDS ORDERED: Calcium Carbonate 500 MG ChewTAB PO PRN (11:29)
[2018-01-26] MEDS ORDERED: Bisacodyl 5 MG TAB PO PRN (11:29)
[2018-01-26] MEDS ORDERED: Sodium Chloride 0.65% Nasal 44 ML BOT EA NARE PRN (11:29)
[2018-01-26] MEDS ORDERED: Loratadine 10 MG TAB PO PRN (11:29)
[2018-01-26] MEDS ORDERED: Bisacodyl 10 MG SUPP PR PRN (11:29)
[2018-01-26] MEDS ORDERED: Diabetic Tussin 200 MG/10 ML UDCUP PO PRN (11:29)
[2018-01-26] MEDS ORDERED: hydrALAZINE 20 MG/ML VIAL SLOW IVP PRN (11:29)
[2018-01-26] MEDS ORDERED: HYDROcodone/Acetaminophen 5/325 mg Tablet PO PRN (11:29)
[2018-01-26] MEDS ORDERED: Ondansetron HCl/PF 4 MG/2 ML Vial IVP PRN (11:29)
[2018-01-26] MEDS ORDERED: Artificial Tears 18 DROP/0.9 ML EA EYE PRN (11:29)
[2018-01-26] MEDS ORDERED: Zolpidem Tartrate 5 MG TAB PO PRN (11:29)
[2018-01-26] MEDS ORDERED: Ondansetron ODT 4 MG TAB PO PRN (11:29)
[2018-01-26] MEDS ORDERED: Loperamide HCl 2 MG CAP PO PRN (11:29)
[2018-01-26] MEDS ORDERED: Eucerin (Mineral Oil/Petrolatum,White) 30 gm Jar TOP PRN (11:29)
[2018-01-26 11:41] VITALS: BMI 25.9
[2018-01-26 12:06] LABS: Hemoglobin 7.3 g/dL (12.0-16.0)
--- NOTE | 2018-01-26 12:31 | HP ---
PRIMARY CARE PHYSICIAN: Dr. Mayte Bianchi. REASON FOR ADMISSION: Severe symptomatic anemia. HISTORY OF PRESENT ILLNESS: An 88-year-old female who has underlying history of gastric ulcer with a carcinoma who had recurrent admissions lately. Family member reports that her first admission was o n 12/02/2017. At that time, patient had upper endoscopy done by Dr. Sarabia and the patient was found w ith large gastric ulcer which turned out to be gastric cancer. After that admission, patient went ho sd and she had another admission on 12/12/2017 with pneumonia. During that admission, patient was tr eated for pneumonia and subsequently she was discharged to swing bed where she stayed for few days an d [facility], patient had another admission to [facility] for CHF exacerba tion which was treated with diuretic therapy and the patient was discharged on 01/15/2018 at her home . She was living at home for last 10 days. The patient was having overall weakness, but last night when she woke up for restroom, she was feeling dizzy. Subsequently, she had several times vomiting w hich was dark. Family member is not sure about coffee ground or blood. She did not have any bowel m ovement since then, but when she was resting at her home, she was feeling weak, tired, dizzy and that is why she was taken to local [facility]. Over there, patient's hemoglobin was 7.2 and subsequently she was transferred to our hospital. Her hemoglobin is now 5.5. Patient does have epi gastric abdominal pain. She denies any chest pain, palpitation, but she is feeling weak and tired an d dizzy. She does have poor appetite and she is losing weight. As per patient's family member, patient was followed up with Oncology as an outpatient basis and they decided to do a PET scan as an outpatient basis, but as patient was requiring in and out hospitaliza tion and she did not feel better and that is why she was not able to do PET scan yet. In the emergen cy room, patient received Protonix. She was receiving 1 unit of blood and subsequently patient was a dmitted to telemetry floor for close monitoring. REVIEW OF SYSTEMS: The following complete review of systems was negative, unless otherwise mentioned in the HPI or below: Constitutional: Weight loss or gain, ability to conduct usual activities. Skin: Rash, itching. Eyes: Double vision, pain. ENT/Mouth: Nose bleeding, neck stiffness, pain, tenderness. Cardiovascular: Palpitations, dyspnea on exertion, orthopnea. Respiratory: Shortness of breath, wheezing, cough, hemoptysis, fever or night sweats. Gastrointestinal: Poor appetite, abdominal pain, heartburn, nausea, vomiting, constipation, or diarr hea. Genitourinary: Urgency, frequency, dysuria, nocturia. Musculoskeletal: Pain, swelling. Neurologic/Psychiatric: Anxiety, depression. Allergy/Immunologic: Skin rash, bleeding tendency. Please see my HPI for pertinent positive and negative. All other review of systems reviewed and nega tive except as mentioned in the HPI. PAST MEDICAL HISTORY: Gout, diabetes type 2, hypertension, dyslipidemia, recent diagnosis of gastric cancer followed by Dr. Vargas, history of chronic kidney disease stage 4, history of requirement f or hemodialysis, but she is not on any dialysis since 12/12/2015, chronic recurrent anemia, history o f aortic stenosis, required replacement. PAST SURGICAL HISTORY: Tubal ligation, bioprosthetic aortic valve, bladder sling, upper and lower en doscopy. PAST PSYCHIATRIC HISTORY: Reviewed and negative. SOCIAL HISTORY: Patient currently lives at home with her daughter. No history of tobacco, alcohol o r illicit drug abuse. FAMILY HISTORY: No family history of significant coronary artery disease, stroke or cancer. ALLERGIES: BACTRIM and KEFLEX. CURRENT HOME MEDICATIONS: Lipitor 20 mg p.o. daily, allopurinol 100 mg p.o. daily, amlodipine 5 mg h deven tablet daily, vitamin D3 2000 unit p.o. daily, iron 1 tablet daily, Multaq 400 mg twice daily, Pr otonix 40 mg twice daily, Lasix 20 mg p.o. daily, metoprolol tartrate 25 mg twice daily. EMERGENCY ROOM COURSE: Patient has received Protonix IV. The patient has received 2 units of blood. PHYSICAL EXAMINATION: VITAL SIGNS: On arrival, blood pressure 120/43, pulse 84, respiratory rate 20, temperature 98.2, sat uration 92% on room air, weight 64.2 kilograms. GENERAL: Patient is currently alert, awake. Follows simple command, appears pale, weak. HEAD: Normocephalic, atraumatic. EYES: Pupils round, reactive to light. Conjunctivae pale. ENT: Oropharynx within normal limits. Moist mucous membranes. NECK: Supple, no JVD, no thyromegaly, no carotid bruit. LUNGS: Clear to auscultation without any rhonchi or rales. CARDIAC: S1 and S2 regular. Systolic murmur present. No gallop, no rub. ABDOMEN: Soft. Epigastric discomfort noted. No peritoneal sign, no guarding, no rigidity, no rebou nd. BACK: Examination unremarkable, no CVA tenderness. EXTREMITIES: Upper extremity; passive movement of all joints are normal. Lower extremities: No dread ma. Good distal pulsation. SKIN: No skin rash, pale. Patient does have hematoma over abdominal wall which is improving. NEUROLOGIC: Nonfocal examination. ADDITIONAL INFORMATION: The patient was given blood transfusion as an outpatient basis after follow up with Dr. Tiffanie Vargas in 11/2017. The patient also required 1 unit of blood transfusion at [facility] and she was admitted for CHF exacerbation. Patient also had complication with th e abdominal wall hematoma after heparin subcu when patient was discharged last time to swing bed. SIGNIFICANT LABORATORY DATA: CBC: WBC 17.4, hemoglobin 5.5, platelet 244. INR 1.1. BMP: Sodium 1 37, potassium 3.8, chloride 102, carbon dioxide 21, anion gap 18, BUN 96, creatinine 3.47, glucose 20 6, calcium 9.0, and lactic acid 0.7. LFT: AST 78, ALT 79, alkaline phosphate 216, albumin 3.3. CK 19, CK-MB 1.2, troponin I less than 0. 010. BNP 449.6, lipase 71. ASSESSMENT AND PLAN/IMPRESSION: 1. Severe symptomatic recurrent anemia. This patient had dizziness spell and subsequently she had s everal times of vomiting of dark fluid. I am concerned about upper gastrointestinal bleed given the patient has previous history of gastric ulcer and gastric carcinoma as well as she has BUN and creati nine elevated. At this point, patient will be continued with Protonix 40 mg IV b.i.d. Gastrointesti nal team will be consulted. The patient will be monitored on telemetry floor for hemoglobin and julisa tocrit. 2. Gastrointestinal bleed, suspected from upper gastrointestinal from gastric ulcer and gastric canc er and that is why we are consulting forest resource specialist and we are continuing with Protonix 40 mg IV b.i.d. Oncology will be consulted as well for her gastric carcinoma history. 3. Anemia due to acute blood loss, which is suspected from problem #2. The patient will be monitore d on telemetry floor with hemoglobin and hematocrit and we will provide transfusional support. 4. Abnormal liver function tests. Patient had leukocytosis and she had some vague epigastric abdomi nal pain. We will do right upper quadrant ultrasound. CT of the abdomen and pelvis was done at [facility] which showed gallbladder distention. At this point, suspicious for cholecystitis is less likely, but we will start empirically Levaquin therapy as per renal dose. 5. Abdominal wall hematoma from us heparin subcu, and that we will avoid during this admission as we ll as patient hematoma is clinically improving. 6. Chronic kidney disease stage 4, renal function is stable from previous and the patient is followi ng Dr. Ordaz as an outpatient basis. 7. Chronic diastolic heart failure. Currently appears euvolemic. We will continue Lasix when patiallen nt's blood pressure is stable and controlled. 8. Paroxysmal atrial fibrillation. At this point, patient's Multaq therapy will be continued. 9. Dyslipidemia. We will continue Lipitor 20 mg p.o. at bedtime. 10. Gout. We will continue allopurinol 100 mg p.o. daily. 11. Deep venous thrombosis prophylaxis. Sequential compression device boots. No Lovenox or heparin products because of abdominal wall hematoma, bleeding. 12. Gastrointestinal prophylaxis. Patient is already on Protonix therapy. CODE STATUS: I spoke with the patient and patient's daughter at bedside. Patient is FULL CODE. Abby solano's daughter is surrogate decision maker. Disposition plan based on clinical course. We are expecting patient's stay in hospital more than 2 m idnights. Plan of care discussed with the patient and family member in detail and answered all their questions.
--- NOTE | 2018-01-26 14:18 | ULT ---
SONOGRAM RIGHT UPPER QUADRANT: HISTORY: Right upper quadrant pain. Leukocytosis. FINDINGS: Echogenic sludge and stones are present within the gallbladder lumen. Gallbladder wall upper limits of normal in thickness at 0.5 cm. Gallbladder is well distended. The common duct is 0.5 cm. The li elan is unremarkable. No free fluid. IMPRESSION: Cholelithiasis. Findings of acute cholecystitis include borderline gallbladder wall thickening in th e setting of gallbladder wall distention. Clinical correlation regarding other signs and symptoms of acute cholecystitis is required. Radionuclide hepatobiliary scan could be used to evaluate for cyst ic duct patency if needed. POS: ALYCIA
[2018-01-26] MEDS ORDERED: Prevnar 13-Val Conj/PF 0.5 ML SYRINGE IM ONE (15:15)
[2018-01-26 17:59] LABS: Hemoglobin 9.2 g/dL (12.0-16.0)
[2018-01-26] MEDS: Mometasone/Formoterol 120 PUFF INHALER INH SCH (19:26)
[2018-01-26] MEDS: Pantoprazole 40 MG VIAL IVP SCH (20:32)
[2018-01-27 00:31] LABS: Hemoglobin 8.8 g/dL (12.0-16.0)
[2018-01-27 05:41] LABS: #Eosinphils 0.5 thou/uL (0.0-0.7); #Lymphocytes 1.1 thou/uL (1.20-3.40); #Monocytes 1.1 thou/uL (0.11-0.59); #Neutrophils 9.2 thou/uL (1.40-6.50); %Basophils 0.2 % (0.0-1.0); %Eosinophils 4.1 % (0.0-10.0); %Lymphocytes 9.5 % (21.0-51.0); %Monocytes 9.5 % (0.0-10.0); %Neutrophils 76.8 % (42.0-75.0); Hemoglobin 8.5 g/dL (12.0-16.0); Mean Corpuscular HGB CONC 32.6 g/dL (32.0-36.0); Mean Corpuscular Hemoglobin 28.5 pg (27.0-31.0); Mean Corpuscular Volume 87.6 fL (78.0-98.0); Mean Platelet Volume 9.5 fL (7.4-10.4); Platelet Count 185 thou/uL (130-400); RBC Distribution Width 19.7 % (11.5-14.5); Red Blood Cell (RBC) Count 2.97 mill/uL (4.20-5.40)
[2018-01-27 05:57] LABS: ALT (SGPT) 61 U/L (8-55); AST (SGOT) 58 U/L (5-34); Alkaline Phosphatase 175 U/L (40-150); Anion Gap 14 mmol/L (10-20); BUN (Urea Nitrogen) 78 mg/dL (9.8-20.1); Bilirubin, Total 0.6 mg/dL (0.2-1.2); Calc. Creatinine Clearance 12 mL/min (70-130); Calcium 8.8 mg/dL (7.8-10.44); Carbon Dioxide 21 mmol/L (23-31); Chloride 108 mmol/L (98-107); Estimated GFR-MDRD 14; Globulin 2.8 g/dL (2.4-3.5); Glucose 119 mg/dL (83-110); Potassium 3.3 mmol/L (3.5-5.1); Protein, Total 5.8 g/dL (6.0-8.3); Sodium 140 mmol/L (136-145)
[2018-01-27] MEDS ORDERED: Potassium Chloride 10 MEQ in Premix Bag 1 BAG IVPB SCH ×2 (07:30→08:30)
[2018-01-27] MEDS: Mometasone/Formoterol 120 PUFF INHALER INH SCH ×2 (07:59→19:25)
[2018-01-27] MEDS: Allopurinol 100 MG TAB PO SCH (08:26)
[2018-01-27] MEDS: Dronedarone HCl 400 MG TAB PO SCH ×2 (08:26→17:55)
[2018-01-27] MEDS: Metoprolol Tartrate 25 MG TAB PO SCH ×2 (08:26→21:01)
[2018-01-27] MEDS: Pantoprazole 40 MG VIAL IVP SCH ×3 (08:30→21:43)
--- NOTE | 2018-01-27 10:47 | PDOC.PN ---
- Subjective Encounter Start Date: 01/27/18 Encounter Start Time: 08:00 -: old records requested/rev Patient seen and examined. No new complaints. No overnight events No BM yet - Objective Resuscitation Status: Resuscitation Status FULL:Full Resuscitation MAR Reviewed: Yes Vital Signs & Weight: Vital Signs (12 hours) Temp Pulse Resp BP Pulse Ox 01/27/18 07:59 70 12 01/27/18 07:30 97.3 F L 60 15 155/73 H 99 01/27/18 07:20 100 01/27/18 03:24 98.1 F 70 18 125/80 98 Weight Weight 137 lb Most Recent Monitor Data Heart Rate from ECG 119 I&O: 01/26/18 01/27/18 01/28/18 06:59 06:59 06:59 Intake Total 692 Balance 692 Result Diagrams: 01/27/18 05:19 01/27/18 05:19 Additional Labs: Accuchecks 01/26/18 01/26/18 20:29 16:58 POC Glucose 112 H 127 H Radiology Reviewed by me: Yes (US abdomen) EKG Reviewed by me: Yes Phys Exam - Physical Examination Constitutional: NAD HEENT: PERRLA, moist MMs, sclera anicteric Neck: no JVD, supple Respiratory: no wheezing, no rales, no rhonchi Cardiovascular: RRR, no significant murmur, no rub Gastrointestinal: soft, non-tender, no distention, positive bowel sounds Musculoskeletal: no edema, pulses present Neurological: non-focal, normal sensation Lymphatic: no nodes Psychiatric: normal affect, A&O x 3 Skin: no rash, normal turgor Dx/Plan (1) Symptomatic anemia Code(s): D64.9 - ANEMIA, UNSPECIFIED Status: Acute (2) Anemia due to blood loss, acute Code(s): D62 - ACUTE POSTHEMORRHAGIC ANEMIA Status: Acute (3) Acute GI bleeding Code(s): K92.2 - GASTROINTESTINAL HEMORRHAGE, UNSPECIFIED Status: Acute (4) Abnormal LFTs Code(s): R94.5 - ABNORMAL RESULTS OF LIVER FUNCTION STUDIES Status: Acute (5) Hypokalemia Code(s): E87.6 - HYPOKALEMIA Status: Acute (6) Cholelithiases Code(s): K80.20 - CALCULUS OF GALLBLADDER W/O CHOLECYSTITIS W/O OBSTRUCTION Status: Chronic (7) Diabetes type 2, controlled Code(s): E11.9 - TYPE 2 DIABETES MELLITUS WITHOUT COMPLICATIONS Status: Chronic (8) Dyslipidemia Code(s): E78.5 - HYPERLIPIDEMIA, UNSPECIFIED Status: Chronic (9) Gastric adenocarcinoma Code(s): C16.9 - MALIGNANT NEOPLASM OF STOMACH, UNSPECIFIED Status: Chronic Comment: OP follow up planned (10) Gout Code(s): M10.9 - GOUT, UNSPECIFIED Status: Chronic (11) H/O aortic valve replacement with porcine valve Code(s): Z95.3 - PRESENCE OF XENOGENIC HEART VALVE Status: Chronic (12) Hypertension Code(s): I10 - ESSENTIAL (PRIMARY) HYPERTENSION Status: Chronic Comment: Continue Home meds, keep systolic <135/85 (13) PAF (paroxysmal atrial fibrillation) Code(s): I48.0 - PAROXYSMAL ATRIAL FIBRILLATION Status: Chronic (14) Physical deconditioning Code(s): R53.81 - OTHER MALAISE Status: Chronic (15) CKD (chronic kidney disease) stage 4, GFR 15-29 ml/min Code(s): N18.4 - CHRONIC KIDNEY DISEASE, STAGE 4 (SEVERE) Status: Acute (16) Chronic stage c diastolic heart failure Code(s): I50.32 - CHRONIC DIASTOLIC (CONGESTIVE) HEART FAILURE Status: Acute - Plan cont current plan of care, plan discussed w/ family, continue antibiotics * pt did not tolerate IV potassium * GI on case, further testing will defer to them, pt has abnormal LFT, leucocytosis and cholelithises, will defer to GI about need for HIDA scan * medication reviewed as below * symptomatic treatment * start metoprolol, multaq today * discussed with daughter * consult palliative care * start PT. Review of Systems - Review of Systems Eyes: negative: Pain, Vision Change, Conjunctivae Inflammation, Eyelid Inflammation, Redness, Other ENT: negative: Ear Pain, Ear Discharge, Nose Pain, Nose Discharge, Nose Congestion, Mouth Pain, Mouth Swelling, Throat Pain, Throat Swelling, Other Respiratory: negative: Cough, Dry, Shortness of Breath, Hemoptysis, SOB with Excertion, Pleuritic Pain, Sputum, Wheezing Cardiovascular: negative: chest pain, palpitations, orthopnea, paroxysmal nocturnal dyspnea, edema, light headedness, other Gastrointestinal: negative: Nausea, Vomiting, Abdominal Pain, Diarrhea, Constipation, Melena, Hematochezia, Other Genitourinary: negative: Dysuria, Frequency, Incontinence, Hematuria, Retention , Other Musculoskeletal: negative: Neck Pain, Shoulder Pain, Arm Pain, Back Pain, Hand Pain, Leg Pain, Foot Pain, Other - Medications/Allergies Allergies/Adverse Reactions: Allergies Allergy/AdvReac Type Severity Reaction Status Date / Time cephalexin monohydrate Allergy Unknown tightness Verified 01/09/18 14:32 [From Keflex] in chest, difficulty breathing sulfamethoxazole Allergy Verified 01/09/18 14:32 [From Bactrim] trimethoprim [From Bactrim] Allergy Verified 01/09/18 14:32 Medications: Current Medications Acetaminophen (Tylenol) 650 mg PO Q4H PRN PRN Reason: Headache/Fever/Mild Pain (1-3) Hydrocodone Bitart/Acetaminophen ([place] 5/325) 1 tab PO Q4H PRN PRN Reason: Moderate Pain (4-6) Albuterol/Ipratropium (Duoneb) 3 ml NEB A0FR-CK PRN PRN Reason: SOB &/or Wheezing Allopurinol (Zyloprim) 100 mg PO DAILY [facility] Last Admin: 01/27/18 08:26 Dose: Not Given Artificial Tears (Tears Naturale) 0 drop EA EYE PRN PRN PRN Reason: Dry Eyes Bisacodyl (Dulcolax) 10 mg PO DAILYPRN PRN PRN Reason: Constipation Bisacodyl (Dulcolax) 10 mg IN DAILYPRN PRN PRN Reason: Constipation Calcium Carbonate (Tums) 1,000 mg PO Q4H PRN PRN Reason: Heartburn or Indigestion Cholecalciferol (Vitamin D3) 2,[facility] [place] Admin: 01/27/18 08:27 Dose: Not Given Dronedarone (Multaq) 400 mg PO BID-[facility] Last Admin: 01/27/18 08:26 Dose: Not Given Guaifenesin (Robitussin Sf) 200 mg PO Q4H PRN PRN Reason: Cough Hydralazine HCl (Apresoline) 10 mg SLOW IVP Q4H PRN PRN Reason: Systolic BP > 180 Levofloxacin 500 mg/ Device 100 mls @ 100 mls/hr IVPB Q2DAYS@1200 [facility] Last Admin: 01/26/18 12:16 Dose: 100 mls Loperamide HCl (Imodium) 2 mg PO PRN PRN PRN Reason: Diarrhea/Loose Stools Loratadine (Claritin) 10 mg PO DAILYPRN PRN PRN Reason: Sinus Symptoms Metoprolol Tartrate (Lopressor) 25 mg PO BID [facility] Last Admin: 01/27/18 08:26 Dose: 25 mg Mineral Oil/White Petrolatum (Eucerin Cream) 0 gm TOP BIDPRN PRN PRN Reason: Dry Skin Mometasone Furoate/Formoterol Fumar (Dulera 200 Mcg/5 Mcg Inhaler) 2 puff INH BID-RT [facility] Last Admin: 01/27/18 07:59 Dose: 2 puff Ondansetron HCl (Zofran Odt) 4 mg PO Q6H PRN PRN Reason: Nausea/Vomiting Ondansetron HCl (Zofran) 4 mg IVP Q6H PRN PRN Reason: Nausea/Vomiting Pantoprazole Sodium (Protonix) 40 mg IVP Q12HR [facility] Last Admin: 01/27/18 08:30 Dose: 40 mg Phenol (Chloraseptic [place] 180 Ml Bot) 0 ml PO PRN PRN PRN Reason: Sore Throat Sodium Chloride ([place] Nasal [place] 0.65%) 0 ml EA NARE QIDPRN PRN PRN Reason: Nasal Congestion Zolpidem Tartrate (Ambien) 5 mg PO HSPRN PRN PRN Reason: Insomnia
--- NOTE | 2018-01-27 12:44 | CON ---
DATE OF CONSULTATION: 01/26/2018 REFERRING PHYSICIAN: En Morley M.D. REASON FOR CONSULTATION: Nausea, vomiting, and history of coffee-ground emesis and also having some dark stools. HISTORY OF PRESENT ILLNESS: Ms. Lin Bradford is a very pleasant 88-year-old female, who came to ER this morning with history of vomiting, some dark liquids and also passing some dark stool. The patient was hospitalized because of above reason. The patient was found to have anemia with he moglobin around 5.5. She was seen by Dr. Morley and a blood test has been ordered. The patient has no abdominal pain. No more nausea, no more vomiting. She has had no stool since she came to the [facility]. The patient appears very comfortable and in no distress. She is seen along with the patient's daughter. The patient has been back and forth to the hospital over the last, I believe, 2 months. T he patient was admitted in 11/2017 with generalized weakness and anemia. She also has positive stool . She has no history of hematochezia or melena. No abdominal pain, no nausea, no vomiting. She was seen by Dr. Ramez Huynh and subsequently she was seen by Dr. Javier Sarabia. She had a colonoscopy and E GD in 11/2017. The EGD showed ulceration over the incisura angularis and biopsy shows adenocarcinoma . The colonoscopy showed 2 large polyps, one was in sigmoid colon area and another one was in the ce cum; both were removed. , but no dysplasia seen. She was discharged to home after she was seen by Oncology. The Oncology recommended PET scan to see whether she has any metastatic disease. Unfo rtunately, she could not have PET scan done, because she had been back and forth to the hospital for different reasons. She was subsequently hospitalized because of pneumonia and again admitted . She was discharged home over 10 days ago. The patient was doing well until this morning when she f elt nausea, sick to her stomach, felt like fainting, and had at least 2 or 3 episodes of vomiting. S he vomited some dark colored fluid. She was also having some loose stools, several times. The stool s were dark. However, it is not very clear whether it is black or dark because she has been on iron supplement. At the time of the consultation, she appears very comfortable and denies abdominal pain or nausea anymore. She says she would like to drink some liquids. She has been seen by oncologist a nd so far no decision has been made about what either chemotherapy or radiation therapy. She was adv ised by Dr. Sarabia to see her surgical oncologist either in [place] or in [place] to see whether surgery is possible. No other relevant history. ALLERGIES: CEPHALEXIN, SULFAMETHOXAZOLE AND TRIMETHOPRIM. SOCIAL HISTORY: The patient does not smoke or drink alcohol. MEDICAL ILLNESSES: 1. Gastric carcinoma diagnosed in 11/2017. 2. History of pneumonia a month ago. 3. History of congestive heart failure. 4. Aortic valve replacement 3 years ago and had ATN after cardiac catheterization and she had been o n dialysis for about 12 months. She has been off dialysis for the last two years. Other medical illnesses include gout; diabetes, type 2; hypertension; hyperlipidemia; acute kidney in [facility], on dialysis for 12 months and subsequently off dialysis for 2 years now. She also has history of recurrent anemia, aortic valve replacement, tubal ligation, bladder sling, and EGD and colonoscopy . SOCIAL HISTORY: The patient lives with her daughter. FAMILY HISTORY: No family history of coronary artery disease, stroke, or cancer. MEDICATIONS: List was reviewed, which include Lipitor, allopurinol, amlodipine, vitamin D, iron supp lement, Multaq, Protonix, Lasix, metoprolol. REVIEW OF SYSTEMS: Constitutional: No history of fever. No history of weight loss. No history of night sweats. Respiratory System: No history of chronic cough, hemoptysis, dyspnea. Cardiovascular System: No chest pain. No palpitation. No dyspnea, orthopnea, or PND. Gastrointestinal: As per history of present illness. Genitourinary: No dysuria, hematuria. Musculoskeletal: History of ta k pain. Neuropsychiatric: Nonrelevant. Endocrine: Nonrelevant. PHYSICAL EXAMINATION: GENERAL: Revealed a very pleasant female who appears very comfortable. She is in no distr ess. She is awake, alert, communicative. VITAL SIGNS: Pulse is 74, blood pressure is 120/50, respiratory rate 20, temperature 98.2. HEENT: Conjunctivae clear. NECK: Supple. No adenitis or thyromegaly noted. CARDIOVASCULAR SYSTEM: First and second heart sounds normal, systolic murmur. LUNGS: Clear to auscultation. ABDOMEN: Soft. Abdomen had diffuse ecchymotic area seen, which is kind of disease from recent Lovenox injections last hospital admission. Abdomen is nondistended. Abdomen is nontender. There is no organomegaly or masses. Bowel sounds are normal. EXTREMITIES: Revealed no edema. LABORATORY DATA: Most recent lab data: CBC: WBC 17,400, hemoglobin 5.5, hematocrit 17.4, MCV 91.9, platelet count 244,000, polymorphs 92, lymphocytes 9. Chemistries: Sodium is 137, potassium is 3.8 , chloride 102, bicarbonate 21, BUN is 96, creatinine 3.47, glucose 206, calcium 9, bilirubin 0.5, T 78, ALT 79, alkaline phosphatase 216. BNP is 449.6. Albumin is 3.3. Going over the EMR on 2017, her BUN was 49, creatinine 2.54. On 12/27/2017, BUN was 71, creatinine 2.50. On 12/17/2017, B UN was 61, creatinine 2.20. The BUN has slightly gone up since last admission. CLINICAL IMPRESSION: 1. An 88-year-old female with recent diagnosis of gastric cancer by Dr. Javier Sarabia in 01/2018. She underwent Oncology evaluation. The patient presents with anemia and also history of coffee-ground vo miting and some tarry stool. She is stable at the present time. 2. Chronic kidney disease. 3. Gout. 4. Diabetes. 5. Hypertension. 6. Hyperlipidemia. 7. Aortic valve replacement. 8. Colon polyp. RECOMMENDATIONS: 1. Transfuse. 2. IV PPI. 3. Clear liquid diet today. 4. N.p.o. after midnight and possible endoscopy tomorrow by Dr. Sarabia.
--- NOTE | 2018-01-27 16:30 | PRG ---
DATE OF SERVICE: 01/27/2018 GI INPATIENT DAILY PROGRESS NOTE SUBJECTIVE: Ms. Bradford is feeling okay today. She had 2 units of RBC transfusion, hemoglobin came up to 9.2, drifted to 8.5 today. She denies any abdominal pain, nausea, or vomiting. No hematochezi a throughout the past several months. Bowel movements remain dark, remaining on oral iron. OBJECTIVE: VITAL SIGNS: Temperature 98.4, pulse 71, blood pressure 124/58, 99% oxygen saturation on 2 liters na reina cannula. GENERAL: No acute distress. HEART: Regular rate and rhythm. LUNGS: Clear to auscultation bilaterally. ABDOMEN: Bowel sounds present, soft and nontender to palpation. EXTREMITIES: No peripheral edema. LABORATORY STUDIES: Hemoglobin 8.5, WBC 12.0, platelets 185. INR 1.1. Sodium 140, potassium 3.3, B UN 78, creatinine 3.12, glucose 141, alkaline phosphatase 175, AST 58, ALT 61, total bilirubin 0.6. BNP 449.6. ASSESSMENT AND PLAN: 1. Gastric adenocarcinoma. 2. Anemia of gastrointestinal blood loss. The patient's presentation is most consistent with ongoing low-grade bleeding from her known gastric adenocarcinoma. This cancer is in the form of a 2.5 cm ulcer with heaped up edges and a lot of friab ility. As I understand it, staging workup is ongoing. She was never able to get her PET scan. In t he longer term, she is probably not the greatest surgical candidate for a curative approach, but I wo uld defer to an oncologist's recommendations on this. Regarding the bleeding itself, I really do not see any utility to repeating upper endoscopy at this time. Bleeding from gastric adenocarcinoma is notoriously difficult to manage endoscopically. Chances are any attempt at cautery of associated ves sels would likely just worsen any bleeding. I think the better route would be to transfuse as needed and continue on iron. A definitive therapy would be surgical, if she is a candidate for this. I th ink her diet could be advanced. We will not plan on repeating an EGD at this time. She ought to sta y on twice daily proton pump inhibitor.
--- NOTE | 2018-01-27 21:32 | CON ---
DATE OF CONSULTATION: 01/27/2018 REASON FOR CONSULTATION: Gastric cancer. HISTORY OF PRESENT ILLNESS: An 88-year-old female with recent diagnosis of gastric adenoca rcinoma, presenting with symptomatic anemia. Patient's daughter is at bedside and provides most of t he history. The patient was seen by Dr. Vargas in the Cancer [facility] on 12/10/2017. The patient wa s admitted to the hospital on 12/02/2017 with abdominal pain, anemia and guaiac positive stool. [place] noscopy only showed a cecal polyp; however, upper endoscopy showed 2.5 cm mass at the lesser curvatur e of the stomach and biopsy confirmed invasive poorly differentiated adenocarcinoma, with HER2 amplif ication. CT of the chest, abdomen, and pelvis without IV contrast showed small bilateral pleural eff usions. The patient could not receive contrast due to chronic kidney disease. There were a few prom inent lymph nodes noted along the lesser curvature of the stomach measuring up to 14 mm. The patient had been planned to receive a PET scan to evaluate for metastatic disease; however, this was not don e as the patient was admitted to the hospital for symptomatic anemia requiring transfusions. The PET scan was then rescheduled that she was readmitted to the hospital with pneumonia and received transf usion. She was then transferred to [place], she was receiving rehabilitation and possibly received a blood transfusion there and has been readmitted to the hospital again with symptomatic anemia requi ring 2 units of packed red blood cells. Patient states she currently feels much better since admissi on to the hospital yesterday and after blood transfusions. She states her energy is a little better and she no longer felt dizzy. She has continued to lose weight and has a poor appetite. The patient states that she does have dark tarry stools and has been taking oral iron therapy twice per day. REVIEW OF SYSTEMS: Ten point review of systems negative except as per HPI. PAST MEDICAL HISTORY: Gastric cancer, gout, diabetes, hypertension, high cholesterol, chronic kidney disease stage 4, not on dialysis since 11/2015, aortic stenosis. PAST SURGICAL HISTORY: Bioprosthetic aortic valve tubal ligation, bladder sling, upper and lower end oscopies. SOCIAL HISTORY: Lives at home with her daughter. No history of tobacco, alcohol or illicit drug use . FAMILY HISTORY: No family history of cancer. ALLERGIES: BACTRIM AND KEFLEX. CURRENT MEDICATIONS: Reviewed. PHYSICAL EXAMINATION: VITAL SIGNS: Temperature 98.4, pulse 71, respirations 15, satting 99% on 2 liters by nasal cannula. Blood pressure 124/58. GENERAL APPEARANCE: Patient in no acute distress, lying in bed. HEENT: No oral lesions. CARDIOVASCULAR: Regular S1, S2. Loud systolic ejection murmur 4/6. LUNGS: Respirations clear to auscultation bilaterally. ABDOMEN: Soft, nondistended, nontender to palpation. EXTREMITIES: No peripheral edema. NEUROLOGIC: Cranial nerves II-XII grossly intact. PSYCHIATRIC: Awake, alert and oriented x3. LABORATORY DATA: Hemoglobin 5.5 on admission, turned up to 9.2 after blood transfusions, currently 8 .5. White blood cells 17.4 on admission, currently 12.0, platelets 185. BUN 96 on admission, curren tly 78, creatinine 3.47 on admission, currently 3.12. Lactic acid 0.9. B-natriuretic peptide 449.6, albumin 3.0, AST 58, ALT 61, alkaline phosphatase 175. IMAGING DATA: Abdominal ultrasound dated 01/26/2018 shows cholelithiasis. Findings of acute cholecy stitis include borderline gallbladder wall thickening in the setting of gallbladder wall distention. Clinical correlation required. ASSESSMENT AND PLAN: An 88-year-old female with history of gastric adenocarcinoma with HER 2 amplification, admitted to the hospital for symptomatic anemia likely due to ongoing bleeding secon kasey to gastric cancer. The patient has seen Dr. Vargas in November in the Cancer Clinic with plan t o do a PET scan and pending status, would get a surgical opinion if possibly resectable. The patient has been unable to get the PET scan due to repeated admissions for symptomatic anemia as well as pne umonia. Her hemoglobin is currently stable on this admission after 2 units of packed red blood cells transfused. Unknown if patient would be able to tolerate surgery or chemotherapy given performance status; however, no treatment can be recommended until the patient completes her PET scan. I spoke t o the daughter who will try to reschedule that at the end of this week if the patient is able to be d ischarged soon. We will set the patient up to follow with Dr. Vargas after discharge and PET scan. The patient may require ongoing transfusions every couple of weeks, which may be feasible as an out patient. I will leave this to Dr. Vargas. Follow this patient up after discharge. We will sign o ff, but please let us know if there is anything else we can do. Thank you for this consult.
[2018-01-28 05:57] LABS: #Eosinphils 0.5 thou/uL (0.0-0.7); #Lymphocytes 1.3 thou/uL (1.20-3.40); #Monocytes 1.4 thou/uL (0.11-0.59); #Neutrophils 9.5 thou/uL (1.40-6.50); %Basophils 0.3 % (0.0-1.0); %Eosinophils 4.2 % (0.0-10.0); %Lymphocytes 10.5 % (21.0-51.0); %Monocytes 10.9 % (0.0-10.0); %Neutrophils 74.1 % (42.0-75.0); Hemoglobin 8.7 g/dL (12.0-16.0); Mean Corpuscular Hemoglobin 28.3 pg (27.0-31.0); Mean Corpuscular Volume 88.4 fL (78.0-98.0); Mean Platelet Volume 9.2 fL (7.4-10.4); Platelet Count 193 thou/uL (130-400); RBC Distribution Width 19.9 % (11.5-14.5); Red Blood Cell (RBC) Count 3.06 mill/uL (4.20-5.40); White Blood Cell (WBC) Count 12.8 thou/uL (4.8-10.8)
[2018-01-28 06:09] LABS: ALT (SGPT) 62 U/L (8-55); AST (SGOT) 60 U/L (5-34); Alkaline Phosphatase 202 U/L (40-150); Anion Gap 14 mmol/L (10-20); BUN (Urea Nitrogen) 68 mg/dL (9.8-20.1); Bilirubin, Total 0.7 mg/dL (0.2-1.2); Calc. Creatinine Clearance 13 mL/min (70-130); Calcium 8.4 mg/dL (7.8-10.44); Carbon Dioxide 22 mmol/L (23-31); Chloride 110 mmol/L (98-107); Estimated GFR-MDRD 15; Globulin 2.4 g/dL (2.4-3.5); Glucose 102 mg/dL (83-110); Potassium 3.7 mmol/L (3.5-5.1); Protein, Total 5.4 g/dL (6.0-8.3); Sodium 142 mmol/L (136-145)
[2018-01-28] MEDS: Dronedarone HCl 400 MG TAB PO SCH ×2 (08:30→16:30)
[2018-01-28] MEDS: Allopurinol 100 MG TAB PO SCH (08:31)
[2018-01-28] MEDS: Metoprolol Tartrate 25 MG TAB PO SCH ×2 (08:32→20:37)
[2018-01-28] MEDS: Pantoprazole 40 MG VIAL IVP SCH ×2 (08:36→20:38)
[2018-01-28] MEDS: Mometasone/Formoterol 120 PUFF INHALER INH SCH ×2 (08:51→19:17)
--- NOTE | 2018-01-28 10:46 | PDOC.PN ---
- Subjective Encounter Start Date: 01/28/18 Encounter Start Time: 09:45 -: old records requested/rev Patient seen and examined. No new complaints. No overnight events - Objective Resuscitation Status: Resuscitation Status FULL:Full Resuscitation MAR Reviewed: Yes Vital Signs & Weight: Vital Signs (12 hours) Temp Pulse Resp BP Pulse Ox 01/28/18 08:51 67 12 01/28/18 08:20 97.8 F 67 16 120/57 L 96 01/28/18 04:00 97.7 F 71 15 131/61 96 Weight Weight 137 lb Most Recent Monitor Data Heart Rate from ECG 119 I&O: 01/27/18 01/28/18 01/29/18 06:59 06:59 06:59 Intake Total 692 360 Balance 692 360 Result Diagrams: 01/28/18 05:38 01/28/18 05:38 Additional Labs: Accuchecks 01/27/18 01/27/18 01/27/18 20:59 16:48 11:12 POC Glucose 111 H 115 H 141 H 01/27/18 05:42 POC Glucose 122 H EKG Reviewed by me: Yes (nsr) Phys Exam - Physical Examination Constitutional: NAD HEENT: PERRLA, moist MMs, sclera anicteric Neck: no JVD, supple Respiratory: no wheezing, no rales, no rhonchi Cardiovascular: RRR, no significant murmur, no rub Gastrointestinal: soft, non-tender, no distention, positive bowel sounds Musculoskeletal: no edema, pulses present Neurological: non-focal, normal sensation Lymphatic: no nodes Psychiatric: normal affect, A&O x 3 Skin: no rash, normal turgor Dx/Plan (1) Symptomatic anemia Code(s): D64.9 - ANEMIA, UNSPECIFIED Status: Acute (2) Anemia due to blood loss, acute Code(s): D62 - ACUTE POSTHEMORRHAGIC ANEMIA Status: Acute (3) Acute GI bleeding Code(s): K92.2 - GASTROINTESTINAL HEMORRHAGE, UNSPECIFIED Status: Acute (4) Abnormal LFTs Code(s): R94.5 - ABNORMAL RESULTS OF LIVER FUNCTION STUDIES Status: Acute (5) Hypokalemia Code(s): E87.6 - HYPOKALEMIA Status: Acute (6) Cholelithiases Code(s): K80.20 - CALCULUS OF GALLBLADDER W/O CHOLECYSTITIS W/O OBSTRUCTION Status: Chronic (7) Diabetes type 2, controlled Code(s): E11.9 - TYPE 2 DIABETES MELLITUS WITHOUT COMPLICATIONS Status: Chronic (8) Dyslipidemia Code(s): E78.5 - HYPERLIPIDEMIA, UNSPECIFIED Status: Chronic (9) Gastric adenocarcinoma Code(s): C16.9 - MALIGNANT NEOPLASM OF STOMACH, UNSPECIFIED Status: Chronic Comment: OP follow up planned (10) Gout Code(s): M10.9 - GOUT, UNSPECIFIED Status: Chronic (11) H/O aortic valve replacement with porcine valve Code(s): Z95.3 - PRESENCE OF XENOGENIC HEART VALVE Status: Chronic (12) Hypertension Code(s): I10 - ESSENTIAL (PRIMARY) HYPERTENSION Status: Chronic Comment: Continue Home meds, keep systolic <135/85 (13) PAF (paroxysmal atrial fibrillation) Code(s): I48.0 - PAROXYSMAL ATRIAL FIBRILLATION Status: Chronic (14) Physical deconditioning Code(s): R53.81 - OTHER MALAISE Status: Chronic (15) CKD (chronic kidney disease) stage 4, GFR 15-29 ml/min Code(s): N18.4 - CHRONIC KIDNEY DISEASE, STAGE 4 (SEVERE) Status: Acute (16) Chronic stage c diastolic heart failure Code(s): I50.32 - CHRONIC DIASTOLIC (CONGESTIVE) HEART FAILURE Status: Acute - Plan cont current plan of care, plan discussed w/ family, PT/OT, manager social * GI and oncology recommendation noted * will need PET scan before making any treatment decision * will need outpt oncology follow up * dc tele * transfer to medical * continue PT/OT one more day * clinical case manager to address discharge needs * continue protonix * discussed with daughter bedside. Review of Systems - Review of Systems Constitutional: weakness. negative: fever, chills, sweats, malaise, other ENT: negative: Ear Pain, Ear Discharge, Nose Pain, Nose Discharge, Nose Congestion, Mouth Pain, Mouth Swelling, Throat Pain, Throat Swelling, Other Respiratory: negative: Cough, Dry, Shortness of Breath, Hemoptysis, SOB with Excertion, Pleuritic Pain, Sputum, Wheezing Cardiovascular: negative: chest pain, palpitations, orthopnea, paroxysmal nocturnal dyspnea, edema, light headedness, other Gastrointestinal: negative: Nausea, Vomiting, Abdominal Pain, Diarrhea, Constipation, Melena, Hematochezia, Other Genitourinary: negative: Dysuria, Frequency, Incontinence, Hematuria, Retention , Other Musculoskeletal: negative: Neck Pain, Shoulder Pain, Arm Pain, Back Pain, Hand Pain, Leg Pain, Foot Pain, Other - Medications/Allergies Allergies/Adverse Reactions: Allergies Allergy/AdvReac Type Severity Reaction Status Date / Time cephalexin monohydrate Allergy Unknown tightness Verified 01/09/18 14:32 [From Keflex] in chest, difficulty breathing sulfamethoxazole Allergy Verified 01/09/18 14:32 [From Bactrim] trimethoprim [From Bactrim] Allergy Verified 01/09/18 14:32 Medications: Current Medications Acetaminophen (Tylenol) 650 mg PO Q4H PRN PRN Reason: Headache/Fever/Mild Pain (1-3) Hydrocodone Bitart/Acetaminophen ([place] 5/325) 1 tab PO Q4H PRN PRN Reason: Moderate Pain (4-6) Albuterol/Ipratropium (Duoneb) 3 ml NEB [id number] PRN PRN Reason: SOB &/or Wheezing Allopurinol (Zyloprim) 100 mg PO DAILY [facility] Last Admin: 01/28/18 08:31 Dose: 100 mg Artificial Tears (Tears Naturale) 0 drop EA EYE PRN PRN PRN Reason: Dry Eyes Bisacodyl (Dulcolax) 10 mg PO DAILYPRN PRN PRN Reason: Constipation Bisacodyl (Dulcolax) 10 mg DE DAILYPRN PRN PRN Reason: Constipation Calcium Carbonate (Tums) 1,000 mg PO Q4H PRN PRN Reason: Heartburn or Indigestion Cholecalciferol (Vitamin D3) 2,000 units PO QAM [facility] Last Admin: 01/28/18 08:32 Dose: 2,000 units Dronedarone (Multaq) 400 mg PO BID[facility] Last Admin: 01/28/18 08:30 Dose: 400 mg Guaifenesin (Robitussin Sf) 200 mg PO Q4H PRN PRN Reason: Cough Hydralazine HCl (Apresoline) 10 mg SLOW IVP Q4H PRN PRN Reason: Systolic BP > 180 Levofloxacin 500 mg/ Device 100 mls @ 100 mls/hr IVPB Q2DAYS@1200 [facility] Last Admin: 01/26/18 12:16 Dose: 100 mls Loperamide HCl (Imodium) 2 mg PO PRN PRN PRN Reason: Diarrhea/Loose Stools Loratadine (Claritin) 10 mg PO DAILYPRN PRN PRN Reason: Sinus Symptoms Metoprolol Tartrate (Lopressor) 25 mg PO BID [facility] Last Admin: 01/28/18 08:32 Dose: 25 mg Mineral Oil/White Petrolatum (Eucerin Cream) 0 gm TOP BIDPRN PRN PRN Reason: Dry Skin Mometasone Furoate/Formoterol Fumar (Dulera 200 Mcg/5 Mcg Inhaler) 2 puff INH BID-RT [facility] Last Admin: 01/28/18 08:51 Dose: 2 puff Ondansetron HCl (Zofran Odt) 4 mg PO Q6H PRN PRN Reason: Nausea/Vomiting Ondansetron HCl (Zofran) 4 mg IVP Q6H PRN PRN Reason: Nausea/Vomiting Pantoprazole Sodium (Protonix) 40 mg IVP Q12HR [facility] Last Admin: 01/28/18 08:36 Dose: 40 mg Phenol (Chloraseptic [place] 180 Ml Bot) 0 ml PO PRN PRN PRN Reason: Sore Throat Sodium Chloride (Lewis Nasal [place] 0.65%) 0 ml EA NARE QIDPRN PRN PRN Reason: Nasal Congestion Zolpidem Tartrate (Ambien) 5 mg PO HSPRN PRN PRN Reason: Insomnia
--- NOTE | 2018-01-28 12:37 | PRG ---
DATE OF SERVICE: 01/28/2018 GI INPATIENT DAILY PROGRESS NOTE SUBJECTIVE: Mr. Bradford is feeling pretty well. She is tolerating her diet with no issues. No ari na. Hemoglobin is stable from 8.5 yesterday to 8.7 this morning, they are trying to arrange for her to have a PET scan in the near future. OBJECTIVE: VITAL SIGNS: Temperature 97.8, pulse 63, blood pressure 119/56, 95% oxygen saturation on room air. GENERAL: Pale, no acute distress. HEART: Regular rate and rhythm. LUNGS: Clear to auscultation bilaterally. ABDOMEN: Soft and nontender to palpation. EXTREMITIES: No peripheral edema. LABORATORY STUDIES: Hemoglobin 8.7. WBC 12.8, platelets 193. Sodium 142, potassium 3.7, BUN 68, cr eatinine 3.0, total bilirubin 0.7, alkaline phosphatase 202, AST 60, ALT 62. ASSESSMENT AND PLAN: 1. Gastric adenocarcinoma. 2. Anemia of chronic gastrointestinal blood loss. I see no evidence of acute bleeding at this time. As mentioned before, she undoubtedly has a chronic slower bleeding from her gastric adenocarcinoma. We would continue her on twice daily PPI. No plan for any endoscopic intervention. Oncology workup is ongoing. GI will sign off, but please call any time with questions or concerns.
[2018-01-29] MEDS: Mometasone/Formoterol 120 PUFF INHALER INH SCH (06:54)
[2018-01-29] MEDS: Allopurinol 100 MG TAB PO SCH (08:32)
[2018-01-29] MEDS: Metoprolol Tartrate 25 MG TAB PO SCH (08:33)
[2018-01-29] MEDS: Dronedarone HCl 400 MG TAB PO SCH (08:33)
--- NOTE | 2018-01-29 11:16 | DIS ---
DATE OF ADMISSION: 01/26/2018 DATE OF DISCHARGE: 01/29/2018 PRIMARY CARE PHYSICIAN: Arias Hu M.D. DISCHARGE DISPOSITION: Home with home health. PRIMARY DISCHARGE DIAGNOSES: 1. Acute gastrointestinal bleed. 2. Anemia due to acute blood loss. 3. Symptomatic anemia. SECONDARY DISCHARGE DIAGNOSES: Gastric adenocarcinoma, chronic kidney disease stage 4, chronic diast olic heart failure, cholelithiasis, diabetes type 2, hypertension, dyslipidemia, gout, history of aor tic valve replacement with porcine valve, hypertension, paroxysmal atrial fibrillation, physical deco nditioning. PRIMARY PROCEDURE/OPERATION: None. RADIOLOGICAL INVESTIGATION: Abdomen ultrasound showed cholelithiasis. SIGNIFICANT LABORATORY DATA: WBC 12.8, hemoglobin 8.7, platelet 193. INR 1.1. Sodium 142, potassiu m 3.7, BUN 68, creatinine 3.0, AST 60, ALT 62, alkaline phosphate 202, albumin 3.0. Blood culture ne gative. DISCHARGE MEDICATIONS: Levaquin 250 mg p.o. daily for 5 more days, Protonix 40 mg p.o. b.i.d., Duler a two puff inhalation b.i.d., Multaq 400 mg p.o. b.i.d., vitamin D3 2000 units p.o. daily, Norvasc 2. 5 mg p.o. daily, metoprolol 25 mg p.o. b.i.d., glipizide 5 mg p.o. daily, Lipitor 20 mg p.o. daily, a llopurinol 100 mg p.o. daily, Tylenol 650 mg q.6 hours p.r.n. CONTRAINDICATIONS: None. CODE STATUS: FULL CODE. INPATIENT CONSULTANTS: Oncology Group was consulted while in hospital. Gastroenterology Group was c onsulted while in hospital. TEST RESULTS PENDING ON DISCHARGE: None. ALLERGIES: KEFLEX, SULFA DRUGS. DISCHARGE PLAN: Post hospital, patient is instructed to follow up with Dr. Tiffanie Vargas, Dr. Sulma Bianchi as instructed. HOSPITAL COURSE: An 88-year-old female who was admitted by me on 01/26/2018. Please see my HPI for further details. The patient was having acute dizziness at home and she was feeling weak and tired. She was initially evaluated at [facility] where she had hemoglobin of 5.5. She was tra nsferred to our hospital. She most likely had bleeding from upper gastrointestinal tract from her pr evious history of gastric adenocarcinoma. This patient was resuscitated with IV fluid as well as blo od transfusion. She was given total 2 units of blood transfusion. On the day of discharge, her hemo globin is 8.7. This patient was evaluated by history professor and they were thinking that this pat ient does not need anymore upper endoscopy as we have clearcut diagnosis. Oncology was consulted and they are waiting for her PET scan to be done to decide appropriate treatment decision. At this point, while in hospital we also treated her with levofloxacin given cholelithiasis, abnormal LFT and leukocytosis that was improving. On discharge, we gave her 5 days of Levaquin therapy while in hospital. She did not have any fever during entire hospital course and she remained stable. At this point, we are adding physical therapy with home health along with [facility]. The patie nt is overall medically stable for discharge. The patient will get outpatient PET scan. During this admission, we decided to change Protonix to twice daily. Rest of medication was continued as per pr evious. The patient is given instruction to avoid NSAIDs. The patient is seen and examined at bedside today. Please see my progress note from today for furthe r details.
[2018-01-29 11:38] VITALS: TEMP 97.9
[2018-01-29 13:38] VITALS: BP 122/54
== END 2018-01-29 12:35 | disposition home health service (06) | DRG 375 ==
LOC: ERS 06:46 → 2NO 11:26 → T4-B 01-28 14:32
PROVIDERS: ADMIT Internal Medicine; ATTEND Internal Medicine
PROC: 30233N1 Transfusion of Nonautologous Red Blood Cells into Peripheral Vein, Percutaneous Approach (ICD-10-PCS; principal; 2018-01-26)
DX: C16.9 Malignant neoplasm of stomach, unspecified (principal); D62 Acute posthemorrhagic anemia; K92.2 Gastrointestinal hemorrhage, unspecified; I13.0 Hypertensive heart and chronic kidney disease with heart failure and stage 1 through stage 4 chronic kidney disease, or unspecified chronic kidney disease; N18.4 Chronic kidney disease, stage 4 (severe); I50.32 Chronic diastolic (congestive) heart failure; R94.5 Abnormal results of liver function studies; E87.6 Hypokalemia; K80.20 Calculus of gallbladder without cholecystitis without obstruction; E11.22 Type 2 diabetes mellitus with diabetic chronic kidney disease; E78.5 Hyperlipidemia, unspecified; M10.9 Gout, unspecified; Z95.3 Presence of xenogenic heart valve; I48.0 Paroxysmal atrial fibrillation; D72.829 Elevated white blood cell count, unspecified; D63.1 Anemia in chronic kidney disease; T80.89XA Other complications following infusion, transfusion and therapeutic injection, initial encounter; S30.1XXA Contusion of abdominal wall, initial encounter; Z87.01 Personal history of pneumonia (recurrent); K63.5 Polyp of colon
CPT/HCPCS: 36415; 36416; 36430; 76705; 80053; 83605; 83690; 83880; 85025; 85610; 85730; 86850; 86900; 86901; 87040; 93005; 94664; 94760; 96374; A4353; C9113; G8978-GP-CM; G8979-GP-CK; G8987-GO-CL; G8988-GO-CJ; J0360; J1956; J3480; P9016

== ENCOUNTER 2018-02-06 09:00 | Outpatient (CLI) | payer MEDICARE ==
--- NOTE | 2018-02-06 15:17 | PET ---
PET CT FROM SKULL BASE THROUGH MID THIGH: INDICATION: History of gastric malignancy. COMPARISON: CT abdomen and pelvis dated 01/26/18 and 12/27/17. TECHNIQUE: PET CT images were obtained from the skull base through the mid thighs following administration of 11 .4 mCi F18-FDG IV. CT images were obtained for attenuation correction purposes only. The blood sugar was checked 1.5 hours prior to the procedure and found to be 220. The examination was performed at th e request of Dr. Vargas. There is prominent background uptake seen within the skeletal musculature of the torso, as well as within the liver and urine. This slightly limits the examination. FINDINGS: Head/Neck: There is some prominent hypermetabolic uptake involving the skeletal musculature of the neck likely r elated to muscular contraction. No definite pathologically enlarged hypermetabolic lymph nodes are se en within the head and neck region. Thorax: No hypermetabolic pleural effusion or pulmonary nodule is identified. There are some areas of subsegm ental volume loss involving both lower lobes. There is a small left pleural effusion. There are promi nent aortic and mitral annular calcifications. There are prominent coronary artery calcifications. Abdomen/Pelvis: There is a hypermetabolic mass centered within the region of the lesser curvature of the stomach exte nding along the posterior wall of the distal gastric body and antrum suspicious for the patient's kno wn malignancy. The peak SUV uptake associated with this mass is 6.69 and a mean value of 5.56. There are numerous, shotty appearing lymph nodes seen within the gastrohepatic ligament suspicious for gaviota gnant lymphadenopathy. One of the most prominent is seen measuring 9.0 mm with peak SUV uptake of 2.3 . No definite hypermetabolic masses are seen within the liver. There is a prominent diverticulum invo lving the third stage of the duodenum. There are numerous gallstones within the gallbladder. No hyper metabolic ascites is present. There is prominent hypermetabolic activity within the urinary bladder, as well as the rectum, likely related to background activity. There is a hematoma involving the subcu taneous tissues of the anterior left lower quadrant abdominal wall measuring 11.2 x 2.4 cm. Previousl y, this hematoma measured 13.0 x 3.3 cm. Skin/Osseous Structures: No hypermetabolic skin or osseous lesion is definitely demonstrated. IMPRESSION: Abnormal PET CT: 1. Hypermetabolic mass involving the lesser curvature of the stomach and extending down the posterio r wall of the distal gastric body and antrum is consistent with the patient's known malignancy. 2. There are shotty appearing lymph nodes within the gastrohepatic ligament, with the most prominent lymph node measuring 9.0 mm, with a peak SUV uptake of 2.3, suspicious for malignant lymphadenopathy . 3. Small left pleural effusion. 4. Decreased size of a left lower quadrant anterior abdominal wall hematoma. 5. Cholelithiasis. POS: [facility]
== END 2018-02-06 09:01 | disposition home or self-care (01) ==
LOC: PET 09:00
PROVIDERS: ATTEND Internal Medicine Medical Oncology
DX: C16.5 Malignant neoplasm of lesser curvature of stomach, unspecified (principal); J90 Pleural effusion, not elsewhere classified; K80.20 Calculus of gallbladder without cholecystitis without obstruction; K91.871 Postprocedural hematoma of a digestive system organ or structure following other procedure
CPT/HCPCS: 78815; A9552

== ENCOUNTER 2018-02-11 22:24 | Observation (INO) | payer MEDICARE ==
[2018-02-11 23:35] LABS: #Basophils 0.1 thou/uL (0.0-0.2); #Eosinphils 0.2 thou/uL (0.0-0.7); #Lymphocytes 1.8 thou/uL (1.20-3.40); #Monocytes 1.4 thou/uL (0.11-0.59); #Neutrophils 15.2 thou/uL (1.40-6.50); %Basophils 0.5 % (0.0-1.0); %Eosinophils 1.2 % (0.0-10.0); %Lymphocytes 9.5 % (21.0-51.0); %Monocytes 7.2 % (0.0-10.0); %Neutrophils 81.6 % (42.0-75.0); Hemoglobin 4.1 g/dL (12.0-16.0); Mean Corpuscular HGB CONC 31.1 g/dL (32.0-36.0); Mean Corpuscular Hemoglobin 29.3 pg (27.0-31.0); Mean Corpuscular Volume 94.2 fL (78.0-98.0); Mean Platelet Volume 8.2 fL (7.4-10.4); Platelet Count 272 thou/uL (130-400); RBC Distribution Width 18.2 % (11.5-14.5); White Blood Cell (WBC) Count 18.7 thou/uL (4.8-10.8)
[2018-02-11 23:42] LABS: INR-International Normal Ratio 1.2; Prothrombin Time 15.3 SEC (12.0-14.7)
[2018-02-11 23:43] LABS: PTT 28.8 SEC (22.9-36.1)
[2018-02-11 23:51] LABS: ALT (SGPT) 65 U/L (8-55); AST (SGOT) 48 U/L (5-34); Albumin 2.8 g/dL (3.4-4.8); Alkaline Phosphatase 317 U/L (40-150); Anion Gap 17 mmol/L (10-20); BUN (Urea Nitrogen) 81 mg/dL (9.8-20.1); Bilirubin, Total 0.4 mg/dL (0.2-1.2); Calc. Creatinine Clearance 0 mL/min (70-130); Calcium 8.5 mg/dL (7.8-10.44); Carbon Dioxide 23 mmol/L (23-31); Chloride 103 mmol/L (98-107); Estimated GFR-MDRD 20; Globulin 2.5 g/dL (2.4-3.5); Glucose 222 mg/dL (83-110); Potassium 3.5 mmol/L (3.5-5.1); Protein, Total 5.3 g/dL (6.0-8.3); Sodium 139 mmol/L (136-145)
[2018-02-11 23:55] LABS: Troponin I Less than 0.010 ng/mL (< 0.028)
[2018-02-12] MEDS ORDERED: Bisacodyl 5 MG TAB PO PRN (02:26)
[2018-02-12] MEDS ORDERED: Loperamide HCl 2 MG CAP PO PRN (02:26)
[2018-02-12] MEDS ORDERED: Calcium Carbonate 500 MG ChewTAB PO PRN (02:26)
[2018-02-12] MEDS ORDERED: Ondansetron ODT 4 MG TAB PO PRN (02:26)
[2018-02-12] MEDS ORDERED: Ondansetron PF 4 MG/2 ML Vial IVP PRN (02:26)
[2018-02-12] MEDS ORDERED: HYDROcodone/Acetaminophen 5/325 mg Tablet PO PRN (02:26)
[2018-02-12] MEDS ORDERED: Bisacodyl 10 MG SUPP PR PRN (02:26)
[2018-02-12] MEDS ORDERED: Acetaminophen 325 MG TAB PO PRN (02:26)
[2018-02-12] MEDS ORDERED: Zolpidem Tartrate 5 MG TAB PO PRN (02:26)
[2018-02-12] MEDS ORDERED: Dextrose 50% Abboject 50 ML SYRINGE SLOW IVP PRN (03:35)
[2018-02-12] MEDS ORDERED: HumaLOG 300 UNITS/3 ML VIAL SC PRN ×2 (03:35)
[2018-02-12] MEDS ORDERED: Dextrose 5% in Water 1,000 ML IV PRN (03:35)
--- NOTE | 2018-02-12 04:36 | HP ---
PRIMARY CARE PHYSICIAN: Dr. Mayte Bianchi. REASON FOR ADMISSION: Symptomatic anemia. HISTORY OF PRESENT ILLNESS: An 88-year-old female who has underlying diagnosis of gastric adenocarci noma, who requires lately recurrent blood transfusion for recurrent symptomatic anemia. She was rece ntly admitted in our hospital on 01/26/2018. At that time, patient was given blood transfusion. Gas troenterology was consulted, but as patient already has known diagnosis of gastric adenocarcinoma. T he patient did not require any repeat endoscopic evaluation. The patient was evaluated by Oncology binu mckeon that admission as well. Since diagnosis of gastric adenocarcinoma, patient has recurrent admis travis in hospital for symptomatic anemia and one time, she was also admitted for pneumonia. Somehow a fter last discharge on 01/29/2018, the patient stayed at home for 8 days and patient had outpatient P ET scan on 02/06/2018, the patient did so, Dr. Vargas and her blood count was low and that is why s he was advised to get blood transfusion done. Patient was admitted at [facility] on 8 and the patient was given 2 units of blood transfusion and she was discharged on 02/08/2018 with [facility] hosp[facility]. Eventually, this patient's PET scan did show hypermetabolic mass involving lesser curvat ure of the stomach, extending down to the posterior wall of the gastric body and antrum and there was also lymph node involvement. This patient is deemed not a candidate for any kind of treatment. Aga in, today her hemoglobin is 4.1. When patient was discharged on 02/07/2018 from [facility] at that time, her hemoglobin was 8.5. The patient was feeling weak, fatigue, tired, dizzy and that is why the patient is being admitted for symptomatic anemia. The patient was discharged home with home hospice from recent hospitalization at [place], but family member and the patient did not like that hospice and that is why they revoked that hospice and broug ht her to the ER for admission. This patient still wants to be a FULL CODE. She is still in denial phase. When hospice discus sed with her about DNR paper work, the patient got upset and revoked her hospice. REVIEW OF SYSTEMS: The following complete review of systems was negative, unless otherwise mentioned in the HPI or below: Constitutional: Weight loss or gain, ability to conduct usual activities. Sk in: Rash, itching. Eyes: Double vision, pain. ENT/Mouth: Nose bleeding, neck stiffness, pain, te nderness. Cardiovascular: Palpitations, dyspnea on exertion, orthopnea. Respiratory: Shortness of breath, wheezing, cough, hemoptysis, fever or night sweats. Gastrointestinal: Poor appetite, abdom inal pain, heartburn, nausea, vomiting, constipation, or diarrhea. Genitourinary: Urgency, frequenc y, dysuria, nocturia. Musculoskeletal: Pain, swelling. Neurologic/Psychiatric: Anxiety, depressio n. Allergy/Immunologic: Skin rash, bleeding tendency. Please see my HPI for pertinent positive and negative. All other review of system reviewed and negative except as mentioned in the HPI. PAST MEDICAL HISTORY: Gastric adenocarcinoma followed by Dr. Vargas; chronic kidney disease, stage 4; diabetes type 2; hypertension; dyslipidemia; recurrent admission for symptomatic anemia; recent a dmission for pneumonia; gout; physical deconditioning; history of ESRD, required dialysis, but she is not on dialysis since 11/2015; history of aortic stenosis required replacement. PAST SURGICAL HISTORY: Tubal ligation, bioprosthetic aortic valve, bladder sling, upper and lower en doscopy. PAST PSYCHIATRIC HISTORY: Reviewed and negative. SOCIAL HISTORY: Patient currently lives in [place] with her daughter. No history of tobacco, alcoh ol, or illicit drug abuse. FAMILY HISTORY: No family history of coronary artery disease, stroke, or cancer. ALLERGIES: BACTRIM and KEFLEX. EMERGENCY ROOM COURSE: Reviewed. CURRENT HOME MEDICATIONS: Allopurinol 100 mg p.o. daily, Lipitor 20 mg p.o. daily, ferrous sulfate 3 25 mg p.o. daily, Lasix 20 mg p.o. daily, vitamin D3 2000 unit p.o. daily, Protonix 40 mg p.o. b.i.d. PHYSICAL EXAMINATION: VITAL SIGNS: On arrival to emergency room today, blood pressure 129/52, pulse 111, temperature 98.0, saturation 99% on room air, weight 63.5 kilograms. GENERAL: Patient is currently alert, awake, weak, in no obvious acute distress, tachycardic. HEAD: Normocephalic, atraumatic. EYES: Conjunctivae pale. Pupils are round, reactive to light. Extraocular muscle intact. No nysta gmus. ENT: Pale mucous membranes. No oral lesion, no pharyngeal erythema, no exudate. NECK: Supple. No JVD, no thyromegaly, no carotid bruit. LUNGS: Clear to auscultation without any rhonchi or rales. CARDIAC: S1, S2 appears regular. Systolic murmur noted at aortic area as well as precordium, no gal lop, no rub. ABDOMEN: Soft. Patient does have mild vague discomfort on the epigastric region. No peritoneal sig n, no guarding, no rigidity, no rebound. BACK: Unremarkable, no CVA tenderness. EXTREMITIES: Upper extremity: Passive movement of all joints are normal. Lower extremities: No ed astrid. Good distal pulsation, no calf tenderness. SKIN: Pallor skin. No rash. HEMATOLOGICAL: No lymphadenopathy. PSYCHIATRIC: Normal affect. SIGNIFICANT LABORATORY AND DIAGNOSTIC DATA: EKG showing sinus tachycardia, premature atrial complexe s, nonspecific ST-T changes. CAT scan recently done, which showed hypermetabolic mass involving less er curvature of the stomach extending to gastric body and antrum that is also lymph node involvement in gastrohepatic ligament. CBC: WBC 18.7, hemoglobin 4.1, platelet 272,000. INR 1.2. BMP: Sodium 139, potassium 3.5, chloride 103, carbon dioxide 23, anion gap 17, BUN 81, creatinine 2.29, glucose 222, calcium 8.5. LFT: AST 48, ALT 65, alkaline phosphatase 317, albumin 2.8, CK-MB 1.0, troponin I less than 0.010. ASSESSMENT AND PLAN: 1. Symptomatic anemia. This patient has a recurrent blood loss anemia from gastric adenocarcinoma a nd large gastric ulcer, which is already diagnosed and patient is not able to get any specific treatm ent for her gastric cancer because she is not an operative candidate. She is not able to get any parker motherapy as well. Her prognosis is poor. Last time, we consulted [facility] and they are n ot planning to do any more testing because we already know the diagnosis. At this point, the patient will be kept as observation because she only needs blood transfusion. We will give her 2 units of b lood and then we will consider discharging her home. Her long-term prognosis is very poor and patien t has continued to be a high risk for recurrent admission for her symptomatic anemia. After blood tr ansfusion, we will repeat CBC. 2. Metastatic gastric adenocarcinoma with gastric ulcer. This patient has lymph node involvement an d PET scan did show hypermetabolic gastric mass. This patient is not a candidate for any surgical tr eatment as well as this patient is not a candidate for any chemotherapy as well. Her prognosis is po or. She is in denial phase. She needs to be in hospice care. The patient was discharged recently a t hospice but they rejected now. We will consult palliative care and cyanide case hardener to discuss w ith this patient about goal of care and hospice team. 3. Diabetes type 2. We will continue insulin as per sliding scale per protocol. Diabetic diet will be given. 4. Chronic kidney disease, stage 4. Monitor renal function. 5. Abnormal liver function tests. Etiology uncertain. The patient had recently abdominal ultrasoun d, which showed cholelithiasis. The patient is not a candidate for any surgical intervention. At th is point, patient will need symptomatic treatment. The patient does not have any symptoms associated with cholelithiasis. 6. Dyslipidemia. Continue Lipitor 20 mg p.o. daily. 7. Gout. Continue allopurinol 100 mg p.o. daily. 8. Chronic anemia. Continue ferrous sulfate 325 mg p.o. daily. 9. Gastric ulcer. Continue Protonix 40 mg p.o. b.i.d. 10. Deep venous thrombosis prophylaxis. Sequential compression device boots. 11. Gastrointestinal prophylaxis. Patient is already on Protonix therapy. 12. Code status: The patient wants to be FULL CODE, but that will be addressed with palliative care as well. DISPOSITION: Plan based on clinical course. This patient should be in observation status and then p atient will need periodic blood transfusion. Plan of care discussed with the patient's daughter and patient at bedside.
[2018-02-12] MEDS ORDERED: Ferrous Sulfate 325 MG TAB PO SCH (09:00)
[2018-02-12] MEDS ORDERED: Furosemide 20 MG TAB PO SCH (09:00)
[2018-02-12] MEDS ORDERED: Allopurinol 100 MG TAB PO SCH (09:00)
[2018-02-12] MEDS ORDERED: Atorvastatin Calcium 20 MG TAB PO SCH (09:00)
[2018-02-12 11:26] LABS: #Eosinphils 0.4 thou/uL (0.0-0.7); #Lymphocytes 1.6 thou/uL (1.20-3.40); #Monocytes 0.9 thou/uL (0.11-0.59); %Basophils 0.3 % (0.0-1.0); %Eosinophils 3.1 % (0.0-10.0); %Lymphocytes 13.7 % (21.0-51.0); %Monocytes 7.7 % (0.0-10.0); %Neutrophils 75.3 % (42.0-75.0); Hemoglobin 9.1 g/dL (12.0-16.0); Mean Corpuscular HGB CONC 32.5 g/dL (32.0-36.0); Mean Corpuscular Hemoglobin 29.6 pg (27.0-31.0); Mean Corpuscular Volume 91.1 fL (78.0-98.0); Mean Platelet Volume 8.2 fL (7.4-10.4); Platelet Count 167 thou/uL (130-400); RBC Distribution Width 15.6 % (11.5-14.5); Red Blood Cell (RBC) Count 3.09 mill/uL (4.20-5.40); White Blood Cell (WBC) Count 11.9 thou/uL (4.8-10.8)
[2018-02-12 11:37] LABS: Anion Gap 11 mmol/L (10-20); BUN (Urea Nitrogen) 83 mg/dL (9.8-20.1); Calc. Creatinine Clearance 19 mL/min (70-130); Carbon Dioxide 24 mmol/L (23-31); Chloride 106 mmol/L (98-107); Estimated GFR-MDRD 22; Glucose 225 mg/dL (83-110); Potassium 3.4 mmol/L (3.5-5.1); Sodium 138 mmol/L (136-145)
[2018-02-12 13:39] VITALS: BMI 25.3
[2018-02-12 19:54] VITALS: BP 142/75; TEMP 98.2
--- NOTE | 2018-02-12 23:18 | DIS ---
DATE OF ADMISSION: 02/12/2018 DATE OF DISCHARGE: 02/12/2018 DISCHARGE DIAGNOSES: 1. Symptomatic anemia, status post 2 units of packed red blood cells. 2. Metastatic gastric adenocarcinoma with gastric ulceration. Nonoperative and not a candidate for chemotherapy. 3. Acute blood loss anemia, secondary to #2. 4. 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 type 2. 5. Chronic kidney disease, stage 4. CONSULTATIONS: Palliative Care Service. PERTINENT LAB AND X-RAY FINDINGS: Creatinine ranging between 2.10 to 2.29, estimated GFR ranging bet ween 20 to 22, calcium 8.0, AST 48, ALT 65, alkaline phosphatase 317, albumin 2.8. CBC showed a whit e blood cell count ranging between 11.9 to 18.7, hemoglobin ranging between 4.1 to 9.1. HOSPITAL COURSE: Patient was observed on the medical floor after initially presenting with symptomat ic anemia in the context of known metastatic gastric adenocarcinoma of gastric ulceration and acute b lood loss anemia. The patient with recurrent need for packed red blood cell transfusions, receiving 2 units of packed red blood cells during the hospital course. The patient with advanced gastric jan ocarcinoma, not a surgical or chemotherapy candidate. Due to patient's overall comorbid status and p oor long-term prognosis, Palliative Care Services were consulted. The patient and family have decide d to pursue home health services through [facility] agency after discharge. The patient overall remained clinically stable, currently with stable vital signs at the time of discharge. I heart ve discussed current findings and followup and disposition instructions with the patient at the time of discharge. The patient is clinically stable and ready for discharge on 02/12/2018. DISCHARGE MEDICATIONS: 1. Allopurinol 100 mg p.o. daily. 2. Lipitor 20 mg p.o. daily. 3. Feosol 325 mg p.o. daily. 4. Lasix 20 mg p.o. daily. 5. Vitamin D3 of 2000 units p.o. daily. 6. Protonix 40 mg p.o. b.i.d. FOLLOWUP: Patient will follow up with her primary care provider, Dr. Arias Hu. CONDITION ON DISCHARGE: Guarded. ACTIVITY: Ad-ghada. DIET: Regular. SPECIAL INSTRUCTIONS: The patient to receive home health services through [facility] including palliative services. CODE STATUS: Full. DISPOSITION: Home with home health services on 02/12/2018.
--- NOTE | 2018-02-15 11:59 | EKG ---
Test Reason : ER INDICATION Blood Pressure : / mmHG Vent. Rate : 112 BPM Atrial Rate : 112 BPM P-R Int : 204 ms QRS Dur : 064 ms QT Int : 344 ms P-R-T Axes : 070 -18 107 degrees QTc Int : 469 ms Sinus tachycardia with Premature atrial complexes Septal infarct , age undetermined Abnormal ECG Confirmed by DIANE STUART ([id number]), editor in chief newspaper CARMEN PALMA ([id number]) on 02/15/2018 11:59:29 AM Referred By: JENNIFER Confirmed By:DIANE STUART
== END 2018-02-12 19:31 | disposition home or self-care (01) ==
LOC: ERS 22:24 → T4-A 02-12 00:48
PROVIDERS: ADMIT Internal Medicine; ATTEND Internal Medicine
DX: C16.9 Malignant neoplasm of stomach, unspecified (principal); D63.0 Anemia in neoplastic disease; C77.2 Secondary and unspecified malignant neoplasm of intra-abdominal lymph nodes; E11.22 Type 2 diabetes mellitus with diabetic chronic kidney disease; E78.5 Hyperlipidemia, unspecified; I12.0 Hypertensive chronic kidney disease with stage 5 chronic kidney disease or end stage renal disease; N18.6 End stage renal disease; K25.9 Gastric ulcer, unspecified as acute or chronic, without hemorrhage or perforation; Z79.899 Other long term (current) drug therapy; Z88.8 Allergy status to other drugs, medicaments and biological substances
CPT/HCPCS: 36430; 80048; 80053; 82553; 82962; 84484; 85025 ×2; 85610; 85730; 86850; 86870; 86900; 86901; 86902; 86905; 86920; 86922; 93005; 99285; G0378; P9016; 36415; 36416; A4353

== ENCOUNTER 2018-02-19 12:02 | Observation (INO) | payer MEDICARE ==
[2018-02-19] MEDS ORDERED: Bisacodyl 10 MG SUPP PR PRN (12:13)
[2018-02-19] MEDS ORDERED: Senokot S 8.6-50 MG TAB PO PRN (12:13)
[2018-02-19] MEDS ORDERED: Ondansetron PF 4 MG/2 ML Vial IVP PRN (12:13)
[2018-02-19] MEDS ORDERED: HYDROcodone/Acetaminophen 5/325 mg Tablet PO PRN (12:13)
[2018-02-19] MEDS ORDERED: Loperamide HCl 2 MG CAP PO PRN (12:13)
[2018-02-19] MEDS ORDERED: Acetaminophen 325 MG TAB PO PRN (12:13)
[2018-02-19] MEDS ORDERED: Calcium Carbonate 500 MG ChewTAB PO PRN (12:13)
[2018-02-19] MEDS ORDERED: Zolpidem Tartrate 5 MG TAB PO PRN (12:13)
[2018-02-19] MEDS ORDERED: Ondansetron ODT 4 MG TAB PO PRN (12:13)
[2018-02-19] MEDS ORDERED: HumaLOG 300 UNITS/3 ML VIAL SC PRN ×2 (12:27)
[2018-02-19] MEDS ORDERED: Dextrose 5% in Water 1,000 ML IV PRN (12:27)
[2018-02-19] MEDS ORDERED: Dextrose 50% Abboject 50 ML SYRINGE SLOW IVP PRN (12:27)
--- NOTE | 2018-02-19 13:13 | HP ---
PRIMARY CARE PHYSICIAN: Dr. Mayte Bianchi. REASON FOR ADMISSION: Symptomatic anemia for blood transfusion. HISTORY OF PRESENT ILLNESS: An 88-year-old female who has underlying history of gastric cancer. She is not a candidate for any aggressive treatment with the surgery or chemotherapy. She is getting re current symptomatic anemia, requiring blood transfusion. Her most recent admission in our hospital w as on 02/12/2018. The patient was discharged on same day after blood transfusion when we discharged from hospital on 01/2004. At that time, her hemoglobin was 9.1. After blood transfusion, the patien t was doing well. She was able to ambulate and she was feeling more energetic. She saw primary care physician yesterday on 02/18/2018, at that time her hemoglobin was reduced to 7.2 and when they rech ecked today her hemoglobin dropped to 5.7. Dr. Hu spoke with me and this patient transferred to our hospital for 2 unit blood transfusion. This patient was hospitalized initially at [facility] yesterday, but for blood transfusion, she is transferred here. The patient is again feeling dizzy, weak, fatigued, tired. She has dark tarry stool, but she is also taking iron. She is not able to differentiate whether she is losing blood or not. During this alice h, the patient has fourth admission within 1 month. Her first admission was on 01/26/2018, second ad mission was at [facility] on 02/07/2018, third admission in our hospital on 02/12/2018 and mos t recent admission at [facility] on 02/18/2018 and now she is admitted again in our hospital o n 02/19/2018. This patient has an incurable gastric adenocarcinoma, but the patient does not want to go for hospice . She wanted to continue blood transfusion as much as possible. She has been evaluated by palliativ e care team in the past. Even though her long-term prognosis is extremely poor, she wanted to contin ue blood transfusion here in hospital as needed and as much as possible. This patient already evalua esteban by oncologist, senior wind energy consultant in the recent past. PAST MEDICAL HISTORY: Gastric adenocarcinoma, followed by Dr. Vargas; chronic kidney disease stage 4; diabetes type 2; hypertension; dyslipidemia; recurrent admission for symptomatic anemia; chronic physical deconditioning; history of ESRD, required hemodialysis short term and she is off dialysis si nce 11/2015; history of aortic stenosis, required a bioprosthetic valve replacement. REVIEW OF SYSTEMS: The following complete review of systems was negative, unless otherwise mentioned in the HPI or below: Constitutional: Weight loss or gain, ability to conduct usual activities. Sk in: Rash, itching. Eyes: Double vision, pain. ENT/Mouth: Nose bleeding, neck stiffness, pain, te nderness. Cardiovascular: Palpitations, dyspnea on exertion, orthopnea. Respiratory: Shortness of breath, wheezing, cough, hemoptysis, fever or night sweats. Gastrointestinal: Poor appetite, abdom inal pain, heartburn, nausea, vomiting, constipation, or diarrhea. Genitourinary: Urgency, frequenc y, dysuria, nocturia. Musculoskeletal: Pain, swelling. Neurologic/Psychiatric: Anxiety, depressio n. Allergy/Immunologic: Skin rash, bleeding tendency. Please see my HPI for pertinent positive and negative. All other review of system reviewed and negat fredy except as mentioned in the HPI. PAST PSYCHIATRIC HISTORY: Reviewed and negative. PAST SURGICAL HISTORY: Tubal ligation, bioprosthetic aortic valve, bladder sling, upper and lower en doscopy. SOCIAL HISTORY: Patient lives at home in [place] with her daughter. No history of tobacco, alcohol or illicit drug abuse. FAMILY HISTORY: No family history of coronary artery disease, stroke or cancer. ALLERGIES: BACTRIM and KEFLEX. CURRENT HOME MEDICATIONS: Tylenol 650 mg q.6 hours p.r.n., allopurinol 100 mg daily, Lipitor 20 mg p .o. daily, ferrous sulfate 325 mg p.o. daily, Lasix 20 mg p.o. daily, vitamin D3 of 2000 unit p.o. da leiad, Protonix 40 mg p.o. b.i.d. PHYSICAL EXAMINATION: VITAL SIGNS: Currently, blood pressure 110/80, pulse 72, respiratory rate 18, temperature 98.7, satu ration 99% on room air, weight 63.5 kilograms. GENERAL: Patient is currently alert, awake, chronically ill, no obvious acute distress. HEAD: Normocephalic, atraumatic. EYES: Pupils round, reactive to light. Extraocular muscle intact. ENT: Oropharynx within normal limit. Pale mucous membrane, no oral lesion, no pharyngeal erythema, no exudate. NECK: Supple, no JVD, no thyromegaly, no carotid bruit, no jugular venous distention. LUNGS: Clear to auscultation without any rhonchi or rales. CARDIAC: S1, S2 regular. Systolic murmur present. No gallop, no rub. ABDOMEN: Soft, bowel sounds present, nontender, nondistended. No organomegaly, no mass, no suprapub ic tenderness. BACK: Unremarkable, no CVA tenderness. EXTREMITIES: Upper extremity: Passive movements of all joints are normal. Lower extremities: No e nitish. Good distal pulsation. SKIN: No skin rash. HEMATOLOGIC: No lymphadenopathy. NEUROLOGIC: Nonfocal examination. SIGNIFICANT LABORATORY DATA: CBC: WBC 11.2, hemoglobin 5.7, platelet 238, INR 1.2. BMP: Sodium 14 2, potassium 3.7, chloride 104, carbon dioxide 25, BUN 59, creatinine 1.79, glucose 243, calcium 9.0. LFT: AST 34, ALT 26, alkaline phosphatase 233, albumin 2.9. TSH 0.70. CK-MB 0.7, troponin I less than 0.010. ASSESSMENT AND PLAN/IMPRESSION: 1. Symptomatic anemia. The patient's hemoglobin has rapidly dropped from 9.1-7.2 and today 5.7 from previous hospitalization. The patient has symptoms associated with anemia. This patient was admitt ed at [facility] and she is transferred in our hospital for blood transfusion. We will go ahe ad and transfuse 2 units of blood and we will repeat CBC tomorrow. We will observe for any fluid ove rload status and any transfusion related allergic reaction. We will consider discharging her home to [facility]. This patient does not need anymore investigation because we know the diagnosis of gastric ad enocarcinoma that contributing to her recurrent anemia from oozing of blood. She is already on Albino nix 40 mg p.o. b.i.d. Unfortunately, this patient is not a candidate for any surgical intervention a nd she is not a candidate for any chemo intervention because of her chronic physical deconditioning. Palliative Care will be consulted for recurrent admission. This patient required fourth admission w ithin 1 month period for same problem. At this point, patient and family member does not have any re alistic goal. They wanted to continue transfusions as much as possible. This patient is at risk for iron overload and transfusional related side effects. 2. Gastric adenocarcinoma. As mentioned above, the patient is not a candidate for any chemo surgica l intervention. Patient needs palliative care and that is why we will consult palliative care for go al of care. Her long-term prognosis is extremely poor. 3. Chronic kidney disease stage 4. We will monitor renal function. We will repeat labs tomorrow. 4. Dyslipidemia. Continue Lipitor 20 mg p.o. daily. 5. Hyperuricemia. Continue allopurinol 100 mg p.o. daily. 6. Chronic diastolic heart failure. We will watch for any fluid overload status and monitor while i n hospital. We will continue Lasix 20 mg p.o. daily. If patient gets any fluid overload status, the n we will consider giving her IV Lasix. Currently, patient appears euvolemic. 7. Diabetes type 2. We will continue with insulin as per sliding scale protocol. 8. Deep venous thrombosis prophylaxis. SCD boots. 9. Gastrointestinal prophylaxis. Patient is already on Protonix therapy. CODE STATUS: Patient is FULL CODE. Patient's daughter is surrogate decision maker. If patient cooper ges her mind, then we will consider changing code status later on after palliative care if patient ag adri with the DNR status. Disposition plan likely tomorrow after blood transfusion. Plan of care discussed with the patient's daughter and patient at bedside.
[2018-02-19 17:35] VITALS: BMI 24.8
[2018-02-20 05:29] LABS: #Basophils 0.1 thou/uL (0.0-0.2); #Eosinphils 0.3 thou/uL (0.0-0.7); #Lymphocytes 1.5 thou/uL (1.20-3.40); #Monocytes 1.1 thou/uL (0.11-0.59); #Neutrophils 10.2 thou/uL (1.40-6.50); %Basophils 0.4 % (0.0-1.0); %Eosinophils 2.1 % (0.0-10.0); %Lymphocytes 11.4 % (21.0-51.0); %Monocytes 8.7 % (0.0-10.0); %Neutrophils 77.5 % (42.0-75.0); Hemoglobin 10.3 g/dL (12.0-16.0); Mean Corpuscular HGB CONC 33.1 g/dL (32.0-36.0); Mean Corpuscular Hemoglobin 31.7 pg (27.0-31.0); Mean Corpuscular Volume 95.8 fL (78.0-98.0); Mean Platelet Volume 8.1 fL (7.4-10.4); Platelet Count 263 thou/uL (130-400); RBC Distribution Width 15.8 % (11.5-14.5); Red Blood Cell (RBC) Count 3.25 mill/uL (4.20-5.40); White Blood Cell (WBC) Count 13.1 thou/uL (4.8-10.8)
[2018-02-20 05:41] LABS: ALT (SGPT) 18 U/L (8-55); AST (SGOT) 29 U/L (5-34); Albumin 2.7 g/dL (3.4-4.8); Alkaline Phosphatase 193 U/L (40-150); Anion Gap 14 mmol/L (10-20); BUN (Urea Nitrogen) 43 mg/dL (9.8-20.1); Calc. Creatinine Clearance 24 mL/min (70-130); Calcium 8.5 mg/dL (7.8-10.44); Carbon Dioxide 25 mmol/L (23-31); Chloride 107 mmol/L (98-107); Estimated GFR-MDRD 30; Globulin 2.6 g/dL (2.4-3.5); Glucose 109 mg/dL (83-110); Potassium 3.2 mmol/L (3.5-5.1); Protein, Total 5.3 g/dL (6.0-8.3); Sodium 143 mmol/L (136-145)
[2018-02-20] MEDS ORDERED: Ferrous Sulfate 325 MG TAB PO SCH (08:00)
[2018-02-20 08:29] VITALS: TEMP 97.6
[2018-02-20] MEDS ORDERED: Atorvastatin Calcium 20 MG TAB PO SCH (09:00)
[2018-02-20] MEDS ORDERED: Allopurinol 100 MG TAB PO SCH (09:00)
[2018-02-20] MEDS ORDERED: Furosemide 40 MG TAB PO SCH (09:00)
[2018-02-20 09:04] VITALS: BP 157/70
--- NOTE | 2018-02-20 10:31 | PDOC.PN ---
- Subjective Encounter Start Date: 02/20/18 Encounter Start Time: 10:00 Subjective: feels better, recieved 2 u prbc's - Objective Resuscitation Status: Resuscitation Status FULL:Full Resuscitation MAR Reviewed: Yes Vital Signs & Weight: Vital Signs (12 hours) Temp Pulse Pulse Resp BP BP BP 02/20/18 08:00 97.6 F 91 16 157/70 H 113/69 02/20/18 00:56 98.7 F 92 16 155/67 H 02/20/18 00:00 98.7 F 92 16 155/67 H Pulse Ox 02/20/18 08:00 97 02/20/18 00:56 97 02/20/18 00:00 97 Weight Weight 136 lb I&O: 02/19/18 02/20/18 02/21/18 06:59 06:59 06:59 Intake Total 930 Balance 930 Result Diagrams: 02/20/18 05:00 02/20/18 05:00 Additional Labs: Accuchecks 02/20/18 02/19/18 02/19/18 05:00 20:20 17:35 POC Glucose 108 111 H 133 H Phys Exam - Physical Examination HEENT: PERRLA, moist MMs Neck: no JVD, supple Respiratory: no wheezing, no rales Cardiovascular: RRR, no significant murmur Gastrointestinal: soft, non-tender, positive bowel sounds Musculoskeletal: no edema, pulses present Neurological: non-focal, moves all 4 limbs Psychiatric: A&O x 3 Dx/Plan (1) Anemia due to blood loss, acute Code(s): D62 - ACUTE POSTHEMORRHAGIC ANEMIA Status: Acute (2) CKD (chronic kidney disease) stage 4, GFR 15-29 ml/min Code(s): N18.4 - CHRONIC KIDNEY DISEASE, STAGE 4 (SEVERE) Status: Chronic (3) Chronic stage c diastolic heart failure Code(s): I50.32 - CHRONIC DIASTOLIC (CONGESTIVE) HEART FAILURE Status: Chronic (4) Diabetes type 2, controlled Code(s): E11.9 - TYPE 2 DIABETES MELLITUS WITHOUT COMPLICATIONS Status: Chronic Qualifiers: 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 machine 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 insulin use: without chcf use 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 complication status: with unspecified complications Qualified Code(s) : E11.8 - Type 2 diabetes mellitus with unspecified complications (5) Dyslipidemia Code(s): E78.5 - HYPERLIPIDEMIA, UNSPECIFIED Status: Chronic (6) Gastric adenocarcinoma Code(s): C16.9 - MALIGNANT NEOPLASM OF STOMACH, UNSPECIFIED Status: Chronic Comment: OP follow up planned (7) H/O aortic valve replacement with porcine valve Code(s): Z95.3 - PRESENCE OF XENOGENIC HEART VALVE Status: Chronic (8) Hypertension Code(s): I10 - ESSENTIAL (PRIMARY) HYPERTENSION Status: Chronic Qualifiers: Hypertension type: essential hypertension Qualified Code(s): I10 - Essential (primary) hypertension Comment: Continue Home meds, keep systolic <135/85 (9) PAF (paroxysmal atrial fibrillation) Code(s): I48.0 - PAROXYSMAL ATRIAL FIBRILLATION Status: Chronic - Plan hemostable -: dc pt home * . Review of Systems - Medications/Allergies Allergies/Adverse Reactions: Allergies Allergy/AdvReac Type Severity Reaction Status Date / Time cephalexin monohydrate Allergy Unknown tightness Verified 02/19/18 17:25 [From Keflex] in chest, difficulty breathing sulfamethoxazole Allergy Short of Verified 02/19/18 17:25 [From Bactrim] Breath trimethoprim [From Bactrim] Allergy Short of Verified 02/19/18 17:25 Breath Medications: Current Medications Acetaminophen (Tylenol) 650 mg PO Q4H PRN PRN Reason: Headache/Fever/Mild Pain (1-3) Hydrocodone Bitart/Acetaminophen ([place] 5/325) 1 tab PO Q4H PRN PRN Reason: Moderate Pain (4-6) Allopurinol (Zyloprim) 100 mg PO DAILY [facility] Last Admin: 02/20/18 10:01 Dose: 100 mg Atorvastatin Calcium (Lipitor) 20 mg PO DAILY [facility] Last Admin: 02/20/18 10:01 Dose: 20 mg Bisacodyl (Dulcolax) 10 mg MS DAILYPRN PRN PRN Reason: Constipation Calcium Carbonate (Tums) 1,000 mg PO Q4H PRN PRN Reason: Heartburn or Indigestion Cholecalciferol (Vitamin D3) [facility] [place] Last Admin: 02/20/18 10:01 Dose: 2,000 units Dextrose/Water (Dextrose 50%) 25 gm SLOW IVP PRN PRN PRN Reason: Hypoglycemia Ferrous Sulfate (Feosol) 325 mg PO QAM[facility] Last Admin: 02/20/18 09:59 Dose: 325 mg Furosemide (Lasix) 20 mg PO DAILY [facility] Last Admin: 02/20/18 10:00 Dose: 20 mg Glucagon (Glucagon) 1 mg IM PRN PRN PRN Reason: Hypoglycemia Dextrose/Water (D5w) 1,000 mls @ 0 mls/hr IV .Q0M PRN PRN Reason: Hypoglycemia Insulin Human Lispro (Humalog) 0 units SC .MODERATE SLIDING SC PRN PRN Reason: Moderate Correctional Scale Insulin Human Lispro (Humalog) 0 units SC .BEDTIME SLIDING SC PRN PRN Reason: Bedtime Correctional Scale Loperamide HCl (Imodium) 2 mg PO PRN PRN PRN Reason: Diarrhea/Loose Stools Ondansetron HCl (Zofran Odt) 4 mg PO Q6H PRN PRN Reason: Nausea/Vomiting Ondansetron HCl (Zofran) 4 mg IVP Q6H PRN PRN Reason: Nausea/Vomiting Pantoprazole Sodium (Protonix) 40 mg PO BID [facility] Last Admin: 02/20/18 10:01 Dose: 40 mg Senna/Docusate Sodium (Senokot S) 2 tab PO BID PRN PRN Reason: Constipation Zolpidem Tartrate (Ambien) 5 mg PO HSPRN PRN PRN Reason: Insomnia
--- NOTE | 2018-02-21 07:40 | DIS ---
DATE OF ADMISSION: 02/19/2018 DATE OF DISCHARGE: 02/20/2018 DISCHARGE DISPOSITION: To home. PRIMARY DISCHARGE DIAGNOSES: Acute blood loss anemia due to stomach cancer, status post 2 units blood transfusion, stable; chronic kidney disease, stage 4; chronic diastolic heart failure, stage C; diabetes mellitus, type 2; dyslipidemia; history of porcine aortic valve; hypertension; paroxysmal atrial fibrillation. PROCEDURES DONE DURING HOSPITALIZATION: H&H was 5.7 and 16.7, discharge numbers of 10 and 31. Discharge BUN and creatinine 43 and 1.6. Albumin is 2.7. DISCHARGE MEDICATIONS: Allopurinol 100 mg p.o. daily, Lipitor 20 mg p.o. daily , ferrous sulfate 325 mg p.o. daily, Lasix 20 mg p.o. daily, vitamin D3 of 2000 units p.o. daily, Protonix 40 mg twice daily. ALLERGIES: KEFLEX, SULFA. DISCHARGE PLAN: Patient to follow up with primary care physician in 1 week. BRIEF COURSE DURING HOSPITALIZATION: Patient initially was sent over from Dr. Hu's office for severe anemia with hemoglobin of around 5 grams. Patient has known history of adenocarcinoma of stomach and has not been on chemo or radiation therapy. She has been receiving recurrent blood transfusions. She was given 2 units of packed cell transfusion and patient was stabilized. Her overall prognosis is poor in view of requiring frequent transfusions with nearly four admissions this month. The patient needs to talk to her primary care physician with regard to palliative care/hospice services. She is otherwise hemodynamically stable and will be shortly discharged home. Please see a [id number] documentation on [facility] for the day of discharge. MONIQUED
== END 2018-02-20 11:33 | disposition home or self-care (01) ==
LOC: ONC 12:02
PROVIDERS: ADMIT Internal Medicine; ATTEND Internal Medicine
DX: C16.9 Malignant neoplasm of stomach, unspecified (principal); D62 Acute posthemorrhagic anemia; I13.0 Hypertensive heart and chronic kidney disease with heart failure and stage 1 through stage 4 chronic kidney disease, or unspecified chronic kidney disease; E11.22 Type 2 diabetes mellitus with diabetic chronic kidney disease; N18.4 Chronic kidney disease, stage 4 (severe); I50.32 Chronic diastolic (congestive) heart failure; E78.5 Hyperlipidemia, unspecified; E79.0 Hyperuricemia without signs of inflammatory arthritis and tophaceous disease; I48.0 Paroxysmal atrial fibrillation; Z95.2 Presence of prosthetic heart valve; Z79.899 Other long term (current) drug therapy; Z88.1 Allergy status to other antibiotic agents; Z88.2 Allergy status to sulfonamides; Z66 Do not resuscitate
CPT/HCPCS: 36430; 80053; 82962 ×2; 85025; 86850; 86900; 86901; 86902; 86920; 86922; G0378; G0379; P9016; 36415; 36416

== ENCOUNTER 2018-02-26 13:58 | Observation (INO) | payer MEDICARE ==
[2018-02-26 14:43] LABS: #Basophils 0.1 thou/uL (0.0-0.2); #Eosinphils 0.1 thou/uL (0.0-0.7); #Lymphocytes 1.6 thou/uL (1.20-3.40); #Neutrophils 10.7 thou/uL (1.40-6.50); %Basophils 0.4 % (0.0-1.0); %Eosinophils 0.8 % (0.0-10.0); %Monocytes 7.2 % (0.0-10.0); %Neutrophils 79.6 % (42.0-75.0); Hemoglobin 6.3 g/dL (12.0-16.0); Mean Corpuscular HGB CONC 32.4 g/dL (32.0-36.0); Mean Corpuscular Hemoglobin 31.5 pg (27.0-31.0); Mean Corpuscular Volume 97.1 fL (78.0-98.0); Mean Platelet Volume 8.2 fL (7.4-10.4); Platelet Count 334 thou/uL (130-400); Red Blood Cell (RBC) Count 2.01 mill/uL (4.20-5.40); White Blood Cell (WBC) Count 13.4 thou/uL (4.8-10.8)
[2018-02-26 15:03] LABS: ALT (SGPT) 13 U/L (8-55); AST (SGOT) 24 U/L (5-34); Albumin 2.9 g/dL (3.4-4.8); Alkaline Phosphatase 157 U/L (40-150); Anion Gap 16 mmol/L (10-20); BUN (Urea Nitrogen) 56 mg/dL (9.8-20.1); Bilirubin, Total 0.4 mg/dL (0.2-1.2); Calc. Creatinine Clearance 0 mL/min (70-130); Calcium 9.2 mg/dL (7.8-10.44); Carbon Dioxide 23 mmol/L (23-31); Chloride 103 mmol/L (98-107); Estimated GFR-MDRD 29; Globulin 2.7 g/dL (2.4-3.5); Glucose 166 mg/dL (83-110); Potassium 3.5 mmol/L (3.5-5.1); Protein, Total 5.6 g/dL (6.0-8.3); Sodium 138 mmol/L (136-145)
[2018-02-26 15:07] LABS: CKMB 0.8 ng/mL (0-6.6); Troponin I Less than 0.010 ng/mL (< 0.028)
[2018-02-26] MEDS ORDERED: Acetaminophen 650 MG Suppository PR PRN (17:25)
[2018-02-26] MEDS ORDERED: Acetaminophen 325 MG TAB PO PRN (17:25)
[2018-02-26] MEDS ORDERED: Senokot S 8.6-50 MG TAB PO PRN (17:25)
--- NOTE | 2018-02-26 18:09 | HP ---
PRIMARY CARE PHYSICIAN: Dr. Arias Hu. CHIEF COMPLAINT: Generalized weakness. HISTORY OF PRESENT ILLNESS: Ms. Bradford is a pleasant 88-year-old lady who was seen at [facility] on 02/26/2018. She was hospitalized at this facility from 02/19/2018-02/20/2018 of this year for symptomatic anemia. She has a history of gastric cancer and is not a candidate for any aggressive treatment. She is getting blood transfusions on a p.r.n. basis. Patient reports lani t she was doing well when she was discharged home. Over the last couple of days, she started feeling generalized weakness. She also reports having black stools, but these are chronic for her, and she also reports taking iron. She reports shortness of breath with exertion over the last couple of days . She also saw her primary care provider 2 days ago. She denies any nausea or vomiting. She denies any chest pain. She denies any fevers or chills. She came to the emergency room because of general ized weakness. REVIEW OF SYSTEMS: All other systems reviewed and found to be negative. PAST MEDICAL HISTORY: Gastric adenocarcinoma; chronic kidney disease, stage 4; diabetes mellitus typ e 2; hypertension; dyslipidemia; recurrent admission for symptomatic anemia; chronic physical decondi tioning; end-stage renal disease, not currently on hemodialysis; aortic stenosis; status post biopros thetic valve replacement. PAST SURGICAL HISTORY: Tubal ligation, bioprosthetic aortic valve placement, bladder sling surgery, upper and lower endoscopy. SOCIAL HISTORY: Patient denies tobacco use, alcohol use or recreational drug use. FAMILY HISTORY: No family history of premature coronary artery disease. CODE STATUS: I discussed her code status. She is FULL CODE. ALLERGIES: BACTRIM AND KEFLEX. CURRENT MEDICATIONS: Tylenol 650 mg every 6 hours as needed, allopurinol 100 mg daily, Lipitor 20 mg daily, ferrous sulfate 325 mg daily, Lasix 20 mg daily, vitamin D3 of 2000 units daily, and Protonix 40 mg 2 times a day. PHYSICAL EXAMINATION: GENERAL: Ms. Bradford is awake and alert, not in acute distress. VITAL SIGNS: Blood pressure is 120/85, pulse 99, respiratory rate 21, and oxygen saturation 100% on room air. She is afebrile. When she initially presented to the emergency room, she was tachycardic with a pulse of 107. EYES: No scleral icterus. She has conjunctival pallor. ENT: Moist mucosal membranes, no oropharyngeal erythema or exudates. NECK: Supple, nontender. Trachea is midline. RESPIRATORY: Accessory muscles of breathing are not active. Chest wall movements are symmetric bila terally. LUNGS: Clear to auscultation without wheeze, rhonchi or crepitations. CARDIOVASCULAR: S1 and S2 are heard, regular. Peripheral pulses palpable. No carotid bruits and no pericardial rub. ABDOMEN: Soft, nontender, bowel sounds heard, no hepatomegaly, no splenomegaly. NEUROLOGIC: Cranial nerves II-XII intact, deep tendon reflexes 2+. MUSCULOSKELETAL: Power is 5/5 in all 4 extremities. SKIN: No rashes or subcutaneous nodules. She has cutaneous pallor. LYMPHATIC: No cervical lymphadenopathy. PSYCHIATRIC: Normal mood, normal affect. Patient is oriented to person, place, and time. LABORATORY: Ms. Bradford's labs and investigations were reviewed. Electrocardiogram shows sinus tach ycardia, no ST changes to suggest an acute coronary syndrome. She has a leukocytosis with 13,400 whi te cells, of which 79.6% neutrophils, normocytic anemia with hemoglobin 6.3, last known hemoglobin 10 .3 on 02/20/2018. Normal platelet count, normal sodium, normal potassium, elevated blood urea nitrog en of 56, elevated creatinine of 1.68, last known creatinine 1.60 on 02/20/2018. She has elevated al kaline phosphatase of 157, last known value 193 on 02/20/2018, normal total bilirubin, normal AST, no rmal ALT and decreased albumin of 2.9. ASSESSMENT AND PLAN: Ms. Bradford is a pleasant 88-year-old lady who was seen at [facility] on 02/26/2018. Her problem list includes: 1. Symptomatic anemia: Ms. Bradford is presenting with symptomatic anemia, most likely secondary to anemia of acute blood loss from gastric cancer. Emergency room physician has discussed with her prim cisco care provider regarding the feasibility of arranging outpatient blood transfusions. She has been advised to discuss with her oncologist. She also spoke to her oncologist, who has offered to follow up next week in his office to discuss further management. For now, patient will be admitted to the hospital on observation status. She reportedly has a lot of antibodies in her blood, so it will take some time to identify appropriate transfusion products. Current order is for 2 units packed RBC tra nsfusion. We will see where her hemoglobin is following the transfusion. 2. Gastric adenocarcinoma: Patient has a history of gastric adenocarcinoma that is not amenable to treatment. She was seen by palliative care service in the past. We will request Palliative Care Tea m to see the patient again to discuss goals of care. 3. Dyslipidemia: Continue statin. 4. Hypertension: Resume amlodipine and metoprolol, monitor vital signs and titrate antihypertensive s as needed. We will continue Protonix for presumed GI bleed. Many thanks for allowing me to participate in your patient's care. Please feel free to contact me wi th any questions or concerns. LEVEL OF RISK: Moderate. LEVEL OF COMPLEXITY: Moderate.
[2018-02-27 00:36] VITALS: BMI 29.0
[2018-02-27 05:53] LABS: #Eosinphils 0.2 thou/uL (0.0-0.7); #Lymphocytes 1.7 thou/uL (1.20-3.40); #Monocytes 1.3 thou/uL (0.11-0.59); #Neutrophils 11.2 thou/uL (1.40-6.50); %Basophils 0.3 % (0.0-1.0); %Eosinophils 1.7 % (0.0-10.0); %Monocytes 8.7 % (0.0-10.0); %Neutrophils 77.3 % (42.0-75.0); Hemoglobin 9.7 g/dL (12.0-16.0); MDiff Complete? YES; Mean Corpuscular HGB CONC 33.2 g/dL (32.0-36.0); Mean Corpuscular Hemoglobin 31.1 pg (27.0-31.0); Mean Corpuscular Volume 93.6 fL (78.0-98.0); PLT Morphology Comment Appears Adequate; Platelet Count 252 thou/uL (130-400); Polychromasia SLIGHT = 2-3 cells (100X) (0-2/hpf); RBC Distribution Width 13.4 % (11.5-14.5); Red Blood Cell (RBC) Count 3.11 mill/uL (4.20-5.40); White Blood Cell (WBC) Count 14.4 thou/uL (4.8-10.8)
[2018-02-27 06:05] LABS: Anion Gap 13 mmol/L (10-20); BUN (Urea Nitrogen) 53 mg/dL (9.8-20.1); Calc. Creatinine Clearance 29 mL/min (70-130); Carbon Dioxide 25 mmol/L (23-31); Chloride 105 mmol/L (98-107); Estimated GFR-MDRD 31; Glucose 128 mg/dL (83-110); Potassium 3.1 mmol/L (3.5-5.1); Sodium 140 mmol/L (136-145)
[2018-02-27 08:11] VITALS: BP 147/67; TEMP 97.4
--- NOTE | 2018-02-27 13:56 | DIS ---
DATE OF ADMISSION: 02/26/2018 DATE OF DISCHARGE: 02/27/2018 DISCHARGE DIAGNOSES: 1. Symptomatic anemia secondary to gastric adenocarcinoma. 2. Acute blood loss anemia secondary to gastric adenocarcinoma, status post 2 units of packed red bl ood cells. 3. Gastric adenocarcinoma, inoperable. 4. Chronic kidney disease, stage 4. CONSULTATIONS: None. PERTINENT LAB AND X-RAY FINDINGS: Hemoglobin ranged between 6.3-9.7. Creatinine ranged between 1.57 -1.68, estimated GFR ranged between 29-31. HOSPITAL COURSE: Patient was observed on the medical oncology unit after presenting with symptomatic anemia in the context of known gastric adenocarcinoma, inoperable and medically managed. The patien t with recurrent acute blood loss anemia secondary to gastric adenocarcinoma requiring packed red blo od cells. The patient received 2 units of packed red blood cells during the hospital course with ini tial hemoglobin of 6.3 increasing to 9.7 by the time of discharge. Overall, patient did remain clini alec stable and tolerated the transfusion without difficulty. The patient resumed her regular home medication regimen and has remained stable through the hospital course. I have examined the patient at the time of discharge and discussed followup instructions. Case Management and nursing personnel attempting to coordinate ongoing outpatient blood transfusions prior to discharge. Overall, the pauline ent clinically stable and ready for discharge on 02/27/2018. DISCHARGE MEDICATIONS: 1. Tylenol 650 mg p.o. every 6 hours p.r.n. 2. Allopurinol 100 mg p.o. daily. 3. Lipitor 20 mg p.o. daily. 4. Feosol 325 mg p.o. daily. 5. Lasix 20 mg p.o. daily. 6. Vitamin D3 2000 units p.o. daily. 7. Protonix 40 mg p.o. b.i.d. FOLLOWUP: Patient will follow up with her primary care provider, Dr. Arias Hu within 7 days of d ischarge. CONDITION ON DISCHARGE: Guarded. ACTIVITY: Ad ghada. DIET: Regular. SPECIAL INSTRUCTIONS: Recommend weekly CBC and p.r.n. blood transfusions on an outpatient basis thro [facility] her primary care provider. CODE STATUS: Full. DISPOSITION: Home on 02/27/2018.
== END 2018-02-27 17:25 | disposition home or self-care (01) ==
LOC: ERS 13:58 → ONC 16:25
PROVIDERS: ADMIT Internal Medicine; ATTEND Internal Medicine
DX: C16.9 Malignant neoplasm of stomach, unspecified (principal); D62 Acute posthemorrhagic anemia; I12.9 Hypertensive chronic kidney disease with stage 1 through stage 4 chronic kidney disease, or unspecified chronic kidney disease; E11.22 Type 2 diabetes mellitus with diabetic chronic kidney disease; N18.4 Chronic kidney disease, stage 4 (severe); E78.5 Hyperlipidemia, unspecified; I35.0 Nonrheumatic aortic (valve) stenosis; Z79.899 Other long term (current) drug therapy; Z88.1 Allergy status to other antibiotic agents; Z88.8 Allergy status to other drugs, medicaments and biological substances; Z95.2 Presence of prosthetic heart valve
CPT/HCPCS: 36430; 51701; 80048; 80053; 82553; 84484; 85025 ×2; 86850; 86870; 86900; 86901; 86902; 86905; 86920; 86922; 93005; 99285; G0378 ×2; P9016 ×2; 36415

== ENCOUNTER 2018-03-06 19:54 | Inpatient (IN) | payer MEDICARE ==
[2018-03-06 21:50] LABS: Troponin I 0.015 ng/mL (< 0.028)
[2018-03-06] MEDS ORDERED: Senokot S 8.6-50 MG TAB PO PRN (22:37)
[2018-03-06] MEDS ORDERED: Acetaminophen 325 MG TAB PO PRN (22:37)
[2018-03-06] MEDS ORDERED: Ondansetron ODT 4 MG TAB PO PRN (22:37)
[2018-03-06] MEDS ORDERED: Ondansetron PF 4 MG/2 ML Vial IVP PRN (22:37)
[2018-03-06] MEDS ORDERED: Iron Sucrose Complex 200 MG in Sodium Chloride 0.9% 250 ML 250 ML IVPB SCH (22:45)
[2018-03-06] MEDS ORDERED: Iron, Sodium Ferric Gluconate 250 MG in Sodium Chloride 0.9% 100 ML IVPB SCH (23:00)
[2018-03-07] MEDS ORDERED: Lorazepam 2 MG/ML VIAL ONE (00:11)
[2018-03-07 01:18] LABS: #Basophils 0.1 thou/uL (0.0-0.2); #Eosinphils 0.1 thou/uL (0.0-0.7); #Lymphocytes 2.4 thou/uL (1.20-3.40); #Monocytes 1.2 thou/uL (0.11-0.59); #Neutrophils 10.5 thou/uL (1.40-6.50); %Basophils 0.5 % (0.0-1.0); %Eosinophils 0.7 % (0.0-10.0); %Monocytes 8.2 % (0.0-10.0); %Neutrophils 73.6 % (42.0-75.0); Hemoglobin 6.3 g/dL (12.0-16.0); Mean Corpuscular HGB CONC 32.6 g/dL (32.0-36.0); Mean Corpuscular Hemoglobin 30.5 pg (27.0-31.0); Mean Corpuscular Volume 93.3 fL (78.0-98.0); Mean Platelet Volume 8.2 fL (7.4-10.4); Platelet Count 331 thou/uL (130-400); RBC Distribution Width 13.4 % (11.5-14.5); Red Blood Cell (RBC) Count 2.07 mill/uL (4.20-5.40); White Blood Cell (WBC) Count 14.3 thou/uL (4.8-10.8)
[2018-03-07 01:28] LABS: Troponin I 0.104 ng/mL (< 0.028)
[2018-03-07 01:39] LABS: Albumin 2.6 g/dL (3.4-4.8); Anion Gap 16 mmol/L (10-20); BUN (Urea Nitrogen) 46 mg/dL (9.8-20.1); BUN/Creatinine Ratio 26.74; Calc. Creatinine Clearance 0 mL/min (70-130); Calcium 9.1 mg/dL (7.8-10.44); Carbon Dioxide 24 mmol/L (23-31); Chloride 104 mmol/L (98-107); Estimated GFR-MDRD 28; Glucose 166 mg/dL (83-110); Phosphorus 2.8 mg/dL (2.3-4.7); Sodium 141 mmol/L (136-145)
[2018-03-07 01:42] LABS: Potassium 2.8 mmol/L (3.5-5.1)
[2018-03-07] MEDS ORDERED: Potassium Chloride 10 MEQ in Premix Bag 1 BAG IVPB SCH (02:00)
[2018-03-07] MEDS: Sodium Chloride 0.9% 1,000 ML IV SCH ×3 (02:25→23:12)
[2018-03-07] MEDS: Potassium Chloride 10 MEQ in Premix Bag 1 BAG IVPB SCH ×3 (02:39→07:15)
--- NOTE | 2018-03-07 02:59 | HP ---
CHIEF COMPLAINT: Generalized weakness. HISTORY OF PRESENT ILLNESS: This is an 88-year-old female with a past medical history of gastric carcinoma being transferred from [place] due to chief complaint of atrial fibrillation with rapid ventricular response. Patient stated that she has been having generalized weakness and due to her gastric carcinoma, she loses blood often and that makes her feel very tired. At this time, patient is lying in bed and states that she does not have any chest pain, shortness of breath, nausea, vomiting, hematuria, hematochezia, melena; however , the patient endorses generalized weakness. Of note, patient receives transfusions weekly due to her gastric cancer. Per patient's daughter, patient is not receiving any treatment at this time, because patient has been told that nothing can be done for her cancer. Patient was recently seen in our hospital on 02/27/2018, patient was discharged with symptomatic anemia secondary to gastric adenocarcinoma. REVIEW OF SYSTEMS: Positive for generalized weakness, otherwise as documented in the HPI. All other systems were reviewed and are negative. PAST MEDICAL HISTORY: Gastric adenocarcinoma; chronic kidney disease, stage 4; diabetes mellitus, type 2; hypertension; hyperlipidemia; and recurrent admissions for symptomatic anemia; physical deconditioning; end-stage renal disease, not on hemodialysis; aortic stenosis, status post bioprosthetic valve replacement. FAMILY HISTORY: Reviewed and noncontributory to this visit. PAST SURGICAL HISTORY: Tubal ligation, bioprosthetic aortic valve placement, bladder sling surgery, upper and lower endoscopy. SOCIAL HISTORY: Patient denied tobacco use, alcohol use, or recreational drugs. ALLERGIES: Patient is allergic to BACTRIM and KEFLEX. CURRENT MEDICATIONS: Patient takes Tylenol 650 mg every 6 hours as needed, allopurinol 100 mg daily, Lipitor 20 mg daily, ferrous sulfate 325 mg daily, Lasix 20 mg daily, vitamin D3 of 2000 units daily, and Protonix 40 mg b.i.d. PHYSICAL EXAMINATION: VITAL SIGNS: Temperature is 98.4, heart rate is 91, respiratory rate of 18, blood pressure 140/57. GENERAL: Patient is lying in bed, alert, oriented x3, not in acute distress. Patient is able to speak in full sentences. HEENT: Normocephalic, atraumatic. Pupils are equally round and reactive to light. Extraocular movements are intact. Patient has pale conjunctivae. NECK: Supple, no JVD. CARDIAC: Positive S1, S2. Regular rate and rhythm, no murmurs, no gallops or rubs appreciated. LUNGS: Clear to auscultation bilaterally. No wheezing, no rales, no rhonchi is appreciated. ABDOMEN: Obese abdomen, soft, nontender, nondistended. EXTREMITIES: The patient has 5/5 upper extremity strength, 5/5 lower extremity strength. The patient have a right subclavian central line placed. Patient has good pulses bilaterally at the upper and lower extremities. No edema noted. SKIN: Patient has a right central line placed at the subclavian and patient also has a scar at the sternal region. NEUROLOGIC: Cranial nerves II through XII grossly intact. No neurologic deficits noted. Psych: Patient is alert, oriented x3, normal affect. LABORATORY DATA: WBC 14.3, hemoglobin 6.3, hematocrit is 19.3, MCV is 93.3, RDW 13.4, platelet count is 231. Chemistry: Sodium is 141, potassium is 2.8, chloride 104, carbon dioxide 24, anion gap of 16, BUN is 46, creatinine is 1.72 , GFR is 28, BUN and creatinine ratio 26.74, glucose is 166. Troponin is 0.104. ASSESSMENT AND PLAN: This is an 88-year-old female being admitted for: 1. Anemia of acute blood loss likely secondary to gastric carcinoma. At this point, patient is going to be transfused [address] a central line. We will infuse 2 units and we will double check the patient's blood in the morning. 2. Acute on chronic kidney disease, most likely due to dehydration and also intrinsic kidney pathology. Patient has a history of chronic kidney disease, stage 4. Patient gets seen by Dr. Olmos. At this point, we have consulted Nephrology. We will continue patient on IV hydration. We will continue to monitor the patient. 3. Elevated troponins, likely due to atrial fibrillation rapid ventricular response. At this point, patient was started on a Cardizem drip to control her atrial fibrillation rapid ventricular response. We will continue the Cardizem drip and we will titrate the patient off the drip once heart rate is within normal limits. 4. Hypokalemia. We will give patient potassium. 5. Deep venous thrombosis and gastrointestinal prophylaxis. MTDD
[2018-03-07 03:39] VITALS: BMI 23.6
--- NOTE | 2018-03-07 08:03 | RAD ---
CHEST 1 VIEW: COMPARISON: 03/06/2018. HISTORY: Dyspnea. Central line placement. FINDINGS: Interval placement of a right-sided subclavian central venous catheter with the distal tip projectin g over the right atrium. There are sternotomy wires. Slight elongation of the aorta. Normal cardia c silhouette. The pulmonary vessels and hilum are normal. Costophrenic angles are clear. No masses or consolidation. No pneumothorax or osseous abnormalities. Prosthetic aortic valve is noted. IMPRESSION: Right-sided central venous catheter placement. No pneumothorax. POS: [facility]
[2018-03-07] MEDS: Atorvastatin Calcium 20 MG TAB PO SCH (08:31)
[2018-03-07 11:07] LABS: Hemoglobin 10.7 g/dL (12.0-16.0)
[2018-03-07 11:08] LABS: Magnesium 1.4 mg/dL (1.6-2.6); Potassium 3.9 mmol/L (3.5-5.1)
--- NOTE | 2018-03-07 16:34 | PDOC.PN ---
- Subjective Encounter Start Date: 03/07/18 Encounter Start Time: 16:30 Subjective: f/u for A-fib RVR on previous Cardizem gtt now on po Cardizem. Received -: 2u PRBC's with recurrent severe anemia in context of gastric adenocarcinoma - Objective Resuscitation Status: Resuscitation Status FULL:Full Resuscitation MAR Reviewed: Yes Vital Signs & Weight: Vital Signs (12 hours) Temp Pulse Pulse Resp BP BP BP 03/07/18 15:20 97.8 F 91 16 135/60 03/07/18 14:17 127/86 03/07/18 11:03 97.5 F L 81 16 124/58 L 03/07/18 07:26 97.7 F 82 16 121/80 03/07/18 06:40 97.6 F 79 16 119/58 L 03/07/18 05:00 98.2 F 60 16 121/71 03/07/18 04:45 98.1 F 77 16 134/60 Pulse Ox 03/07/18 15:20 99 03/07/18 14:17 03/07/18 11:03 100 03/07/18 07:26 99 03/07/18 06:40 03/07/18 05:00 03/07/18 04:45 Weight Admit Weight 129 lb Weight 129 lb I&O: 03/06/18 03/07/18 03/08/18 06:59 06:59 06:59 Intake Total 0 Balance 0 Result Diagrams: 03/07/18 10:47 03/07/18 10:47 Additional Labs: Accuchecks 03/07/18 03/07/18 10:58 05:59 POC Glucose 162 H 202 H Laboratory Tests 03/11/15 03/12/15 03/12/15 03:45 04:00 04:00 WBC 28.4 H 21.0 H Hgb Bands % (Auto) Neutrophils % 86.8 H Potassium Carbon Dioxide 20 L BUN 71 H Creatinine 2.80 H Magnesium 03/13/15 02/27/18 03/06/18 03:55 04:55 17:22 WBC Hgb Bands % (Auto) 27 H Neutrophils % Potassium Carbon Dioxide BUN Creatinine 1.57 H 1.73 H Magnesium 03/07/18 03/07/18 03/07/18 00:55 00:55 10:47 WBC 14.3 H Hgb 6.3 L Bands % (Auto) Neutrophils % Potassium 2.8 L* Carbon Dioxide BUN Creatinine Magnesium 1.4 L EKG Reviewed by me: Yes (Tele - SR) Phys Exam - Physical Examination Constitutional: NAD HEENT: PERRLA, sclera anicteric, oral pharynx no lesions Neck: no nodes, no JVD, supple, full ROM Respiratory: no wheezing, no rales, no rhonchi, clear to auscultation bilateral S1, S2 Cardiovascular: RRR, no rub, gallop Gastrointestinal: soft, non-tender, no distention, positive bowel sounds Musculoskeletal: no edema, pulses present Neurological: normal sensation, moves all 4 limbs Psychiatric: A&O x 3 Skin: normal turgor, cap refill <2 seconds Dx/Plan (1) Acute GI bleeding Code(s): K92.2 - GASTROINTESTINAL HEMORRHAGE, UNSPECIFIED Status: Acute Comment: Acute/chronic GI blood loss, serial transfusions (2) Anemia due to blood loss, acute Code(s): D62 - ACUTE POSTHEMORRHAGIC ANEMIA Status: Acute Comment: s/p 2u PRBC's (3) Hypokalemia Code(s): E87.6 - HYPOKALEMIA Status: Acute Comment: Improved with KCL supplementation (4) Symptomatic anemia Code(s): D64.9 - ANEMIA, UNSPECIFIED Status: Acute Comment: Recurrent due to GI blood loss secondary to gastric adenocarcinoma (5) CKD (chronic kidney disease) stage 4, GFR 15-29 ml/min Code(s): N18.4 - CHRONIC KIDNEY DISEASE, STAGE 4 (SEVERE) Status: Chronic (6) Gastric adenocarcinoma Code(s): C16.9 - MALIGNANT NEOPLASM OF STOMACH, UNSPECIFIED Status: Chronic Comment: OP follow up planned (7) PAF (paroxysmal atrial fibrillation) Code(s): I48.0 - PAROXYSMAL ATRIAL FIBRILLATION Status: Chronic Comment: Resolved, Cardizem 30mg po q6h, off Cardizem gtt - Plan plan discussed w/ family, PT/OT, out of bed/ambulate, DVT proph w/SCDs Stable currently -: Continue Cardizem 30mg po q6h -: Serial H/H -: Continue IVF's another 24h -: AM lab: BMP, CBC * Likely home in am 03/08/18
--- NOTE | 2018-03-07 21:14 | CON ---
DATE OF CONSULTATION: 03/07/2018 NEPHROLOGY CONSULTATION CONSULTING PHYSICIAN: Dr. White. REASON FOR CONSULTATION: Acute kidney injury. REASON FOR ADMISSION: Weakness. HISTORY OF PRESENT ILLNESS: An 88-year-old female with history of gastric adenocarcinoma, CKD stage 4, type 2 diabetes, hypertension and hyperlipidemia, who came to the hospital with weakness and found to have elevated creatinine and Nephrology consulted. The patient is weak, anemic, also status post blood transfusion. No fever or chills. No nausea or vomiting. PAST MEDICAL HISTORY: Positive for gastric adenocarcinoma, chronic kidney disease stage 4, type 2 di abetes, hypertension, hyperlipidemia. PAST SURGICAL HISTORY: Tubal ligation, aortic valve replacement, bladder sling surgery and endoscopy . HOME MEDICATIONS: Tylenol, allopurinol, Lipitor, ferrous sulfate, Lasix, vitamin D3, Protonix. ALLERGIES: BACTRIM and KEFLEX. SOCIAL HISTORY: No smoking, alcohol or illicit drug use. FAMILY HISTORY: End-stage renal disease. REVIEW OF SYSTEMS: The following complete review of systems was negative, unless otherwise mentioned in the HPI or below: Constitutional: Weight loss or gain, ability to conduct usual activities. Skin: Rash, itching. Eyes: Double vision, pain. ENT/Mouth: Nose bleeding, neck stiffness, pain, tenderness. Cardiovascular: Palpitations, dyspnea on exertion, orthopnea. Respiratory: Shortness of breath, wheezing, cough, hemoptysis, fever or night sweats. Gastrointestinal: Poor appetite, abdominal pain, heartburn, nausea, vomiting, constipation, or diarr hea. Genitourinary: Urgency, frequency, dysuria, nocturia. Musculoskeletal: Pain, swelling. Neurologic/Psychiatric: Anxiety, depression. Allergy/Immunologic: Skin rash, bleeding tendency. PHYSICAL EXAMINATION: GENERAL: This is an elderly female in no apparent distress. VITAL SIGNS: Temperature 97.8, pulse 91, respiratory rate 18, blood pressure 135/63. HEENT: Atraumatic, normocephalic. Oral mucosa is moist. NECK: Supple, no masses. CARDIOVASCULAR: S1, S2 heard. Rate and rhythm regular. RESPIRATORY: Clear. GASTROINTESTINAL: Abdomen is soft. MUSCULOSKELETAL: 1+ edema. DERMATOLOGIC: No rash. NEUROLOGIC: Alert, awake. PSYCHIATRIC: Mood and affect normal. LABORATORY DATA: Potassium is 3.8, hemoglobin 6.3, creatinine is 1.7. ASSESSMENT AND PLAN: 1. Acute kidney injury on chronic kidney disease. We will monitor. 2. Hypokalemia, replace and we will monitor. 3. Hypomagnesemia, replace. 4. Anemia, status post transfusion. 5. Edema, controlled. 6. Hypertension, stable. 7. We will monitor. Avoid nephrotoxins. Thank you for the consult.
[2018-03-08] MEDS: Sodium Chloride 0.9% 1,000 ML IV SCH (03:53)
[2018-03-08] MEDS: Atorvastatin Calcium 20 MG TAB PO SCH (08:06)
[2018-03-08 08:40] LABS: #Eosinphils 0.2 thou/uL (0.0-0.7); #Lymphocytes 1.4 thou/uL (1.20-3.40); #Monocytes 1.4 thou/uL (0.11-0.59); #Neutrophils 14.1 thou/uL (1.40-6.50); %Basophils 0.1 % (0.0-1.0); %Lymphocytes 8.2 % (21.0-51.0); %Monocytes 8.3 % (0.0-10.0); %Neutrophils 82.4 % (42.0-75.0); Hemoglobin 9.1 g/dL (12.0-16.0); Mean Corpuscular HGB CONC 32.4 g/dL (32.0-36.0); Mean Corpuscular Hemoglobin 29.7 pg (27.0-31.0); Mean Corpuscular Volume 91.7 fL (78.0-98.0); Mean Platelet Volume 7.8 fL (7.4-10.4); Platelet Count 251 thou/uL (130-400); RBC Distribution Width 14.2 % (11.5-14.5); Red Blood Cell (RBC) Count 3.07 mill/uL (4.20-5.40); White Blood Cell (WBC) Count 17.1 thou/uL (4.8-10.8)
[2018-03-08 08:54] LABS: Anion Gap 12 mmol/L (10-20); BUN (Urea Nitrogen) 31 mg/dL (9.8-20.1); Calc. Creatinine Clearance 28 mL/min (70-130); Calcium 8.5 mg/dL (7.8-10.44); Carbon Dioxide 25 mmol/L (23-31); Chloride 108 mmol/L (98-107); Estimated GFR-MDRD 38; Glucose 132 mg/dL (83-110); Potassium 3.3 mmol/L (3.5-5.1); Sodium 142 mmol/L (136-145)
[2018-03-08] MEDS ORDERED: Potassium Chloride 20 MEQ TAB PO SCH (11:00)
--- NOTE | 2018-03-08 12:39 | PDOC.PN ---
- Subjective Encounter Start Date: 03/08/18 Encounter Start Time: 07:20 Pt seen for followup re: a. fib. In NSR now, denies chest pain, shortness of breath, fevers or chills. Had diarrhea overnight. - Objective Resuscitation Status: Resuscitation Status FULL:Full Resuscitation MAR Reviewed: Yes Vital Signs & Weight: Vital Signs (12 hours) Temp Pulse Resp BP BP Pulse Ox 03/08/18 11:24 98.2 F 89 16 163/71 H 94 L 03/08/18 08:05 95 03/08/18 08:03 98 F 88 16 165/67 H 95 03/08/18 04:00 98.2 F 90 18 151/67 H 96 Weight Admit Weight 129 lb Weight 129 lb I&O: 03/07/18 03/08/18 03/09/18 06:59 06:59 06:59 Intake Total 0 1880 Output Total 100 Balance 0 1780 Result Diagrams: 03/08/18 08:27 03/08/18 08:27 Additional Labs: Accuchecks 03/08/18 03/08/18 03/07/18 10:57 05:24 20:34 POC Glucose 134 H 134 H 134 H 03/07/18 16:13 POC Glucose 133 H EKG Reviewed by me: Yes (Tele: NSR) Phys Exam - Physical Examination Constitutional: NAD HEENT: moist MMs Neck: supple Respiratory: clear to auscultation bilateral Cardiovascular: RRR Gastrointestinal: soft Neurological: moves all 4 limbs Psychiatric: normal affect Dx/Plan (1) PAF (paroxysmal atrial fibrillation) Code(s): I48.0 - PAROXYSMAL ATRIAL FIBRILLATION Status: Acute Comment: Continue Cardizem, no anticoagulation due to GI bleeding (2) Anemia due to blood loss, acute Code(s): D62 - ACUTE POSTHEMORRHAGIC ANEMIA Status: Acute Comment: s/p 2u PRBC's transfusion, hemoglobin 9.1 today. (3) Symptomatic anemia Code(s): D64.9 - ANEMIA, UNSPECIFIED Status: Acute Comment: Recurrent due to GI blood loss secondary to gastric adenocarcinoma (4) Chronic kidney disease, stage 3 Code(s): N18.3 - CHRONIC KIDNEY DISEASE, STAGE 3 (MODERATE) Status: Chronic Comment: stable - Plan * . check stool studies to r/o infection. replace potassium Review of Systems - Review of Systems Cardiovascular: negative: chest pain, palpitations, orthopnea, paroxysmal nocturnal dyspnea, edema, light headedness Gastrointestinal: Diarrhea. negative: Nausea, Vomiting, Abdominal Pain, Constipation, Melena, Hematochezia - Medications/Allergies Allergies/Adverse Reactions: Allergies Allergy/AdvReac Type Severity Reaction Status Date / Time cephalexin monohydrate Allergy Unknown tightness Verified 02/26/18 19:57 [From Keflex] in chest, difficulty breathing sulfamethoxazole Allergy Short of Verified 02/26/18 19:57 [From Bactrim] Breath trimethoprim [From Bactrim] Allergy Short of Verified 02/26/18 19:57 Breath Medications: Current Medications Acetaminophen (Tylenol) 650 mg PO Q4H PRN PRN Reason: Headache/Fever/Mild Pain (1-3) Atorvastatin Calcium (Lipitor) 20 mg PO DAILY [facility] Last Admin: 03/08/18 08:06 Dose: 20 mg Cholecalciferol (Vitamin D3) 2,000 units PO QAM [facility] Last Admin: 03/08/18 08:06 Dose: 2,000 units Diltiazem HCl (Cardizem) 30 mg PO 0300,0900,1500,2100 [facility] Last Admin: 03/08/18 08:06 Dose: 30 mg Ondansetron HCl (Zofran Odt) 4 mg PO Q6H PRN PRN Reason: Nausea/Vomiting Ondansetron HCl (Zofran) 4 mg IVP Q6H PRN PRN Reason: Nausea/Vomiting Pantoprazole Sodium (Protonix) 40 mg PO BID [facility] Last Admin: 03/08/18 08:07 Dose: 40 mg Potassium Chloride (K-Dur) 40 meq PO 1100 [facility] Stop: 03/08/18 14:00 Last Admin: 03/08/18 11:25 Dose: 40 meq Senna/Docusate Sodium (Senokot S) 2 tab PO BID PRN PRN Reason: Constipation Sodium Chloride (Flush - Normal Saline) 10 ml IVF Q12HR [facility] Last Admin: 03/08/18 08:07 Dose: 10 ml Sodium Chloride (Flush - Normal Saline) 10 ml IVF PRN PRN PRN Reason: Saline Flush
--- NOTE | 2018-03-08 12:53 | PRG ---
DATE OF SERVICE: 03/08/2018 SUBJECTIVE: Patient was seen and examined at bedside and overnight events noted. Patient denies any shortness of breath or chest pain or palpitation. No history of nausea or vomitin g or diarrhea or fever or chills or cramps. OBJECTIVE: GENERAL: This is an elderly female, in no acute distress VITAL SIGNS: Temperature 98.0, pulse 80, respiratory rate 16, blood pressure 165/67. HEENT: Atraumatic, normocephalic, Oral mucosa is moist. NECK: Supple. CARDIOVASCULAR: S1, S2 heard, Rate and rhythm regular. RESPIRATORY: Clear to auscultation. GASTROINTESTINAL: Abdomen is soft. MUSCULOSKELETAL: No tenderness, No edema. DERMATOLOGIC: No skin rash. NEUROLOGIC: Alert and awake and oriented x3. No focal neurologic deficits. Moving all the extremit ies. PSYCHIATRIC: Mood and affect normal. LABORATORY DATA: Potassium 3.3, BUN is 31, creatinine is 1.3. ASSESSMENT AND PLAN: 1. Acute kidney injury. 2. Chronic kidney disease stage 4. 3. Hypokalemia, replace. 4. Hypomagnesemia. 5. Hypertension. 6. Edema. 7. Replace potassium and monitor. We will stop IV fluids.
[2018-03-09 04:32] LABS: #Eosinphils 0.1 thou/uL (0.0-0.7); #Lymphocytes 1.2 thou/uL (1.20-3.40); #Monocytes 1.7 thou/uL (0.11-0.59); #Neutrophils 16.6 thou/uL (1.40-6.50); %Basophils 0.1 % (0.0-1.0); %Eosinophils 0.4 % (0.0-10.0); %Lymphocytes 6.2 % (21.0-51.0); %Monocytes 8.5 % (0.0-10.0); %Neutrophils 84.8 % (42.0-75.0); Hemoglobin 9.5 g/dL (12.0-16.0); Mean Corpuscular Volume 90.8 fL (78.0-98.0); Mean Platelet Volume 8.1 fL (7.4-10.4); Platelet Count 261 thou/uL (130-400); RBC Distribution Width 14.3 % (11.5-14.5); Red Blood Cell (RBC) Count 3.16 mill/uL (4.20-5.40); White Blood Cell (WBC) Count 19.5 thou/uL (4.8-10.8)
[2018-03-09 04:44] LABS: Anion Gap 14 mmol/L (10-20); BUN (Urea Nitrogen) 27 mg/dL (9.8-20.1); Calc. Creatinine Clearance 30 mL/min (70-130); Carbon Dioxide 23 mmol/L (23-31); Chloride 107 mmol/L (98-107); Estimated GFR-MDRD 41; Glucose 116 mg/dL (83-110); Potassium 3.6 mmol/L (3.5-5.1); Sodium 140 mmol/L (136-145)
[2018-03-09] MEDS: Atorvastatin Calcium 20 MG TAB PO SCH (09:26)
[2018-03-09 11:49] VITALS: TEMP 98.3
--- NOTE | 2018-03-09 14:28 | RAD ---
ABDOMEN 2 VIEWS: Date: 03/09/18 HISTORY: Abdominal pain. FINDINGS/IMPRESSION: No free air is seen. A nonspecific bowel gas pattern is noted with air in loops of small and large channing wel. There are degenerative changes in the spine. POS: [facility]
[2018-03-09 17:46] VITALS: BP 142/67
--- NOTE | 2018-03-09 19:37 | PRG ---
DATE OF SERVICE: 03/09/2018 SUBJECTIVE: Patient was seen and examined at bedside and overnight events noted. Patient denies any shortness of breath or chest pain or palpitation. No history of nausea or vomiting or diarrhea or f ever or chills or cramps. OBJECTIVE: GENERAL: This is a well-built female in no apparent distress. VITAL SIGNS: Temperature 98.3, pulse 94, respiratory rate 20, blood pressure 145/63. HEENT: Atraumatic, normocephalic. Oral mucosa is moist. NECK: Supple CARDIOVASCULAR: S1, S2 heard. Rate and rhythm regular. RESPIRATORY: Clear to auscultation. GASTROINTESTINAL: Abdomen is soft. MUSCULOSKELETAL: No tenderness, no edema. DERMATOLOGIC: No skin rash. NEUROLOGIC: Alert, awake, and oriented x3. No focal neurologic deficits. Moving all the extremitie s. PSYCHIATRIC: Mood and affect normal. LABORATORY DATA: Potassium is 3.6, BUN is 27, creatinine is 1.2. ASSESSMENT AND PLAN: 1. Acute kidney injury on chronic kidney disease, stage 3. Renal function is stable. 2. Edema, controlled. 3. Hypokalemia, replaced. 4. Hypomagnesemia, monitor. 5. Edema, controlled. 6. Hypertension, stable. Renal function is stable. We will continue to follow. Avoid nephrotoxins.
--- NOTE | 2018-03-09 22:02 | DIS ---
DATE OF ADMISSION: 03/06/2018 DATE OF DISCHARGE: 03/09/2018 PRIMARY CARE PROVIDER: Arias Hu MD DISCHARGE DIAGNOSES: 1. Paroxysmal atrial fibrillation. 2. Acute blood loss anemia. 3. Symptomatic anemia. 4. Chronic kidney disease, stage 3. CONSULTATIONS DURING THIS HOSPITALIZATION: Nephrology, Dr. Ordaz. DISCHARGE MEDICATIONS: Allopurinol 100 mg daily, Lipitor 20 mg daily, ferrous sulfate 325 mg daily, Lasix 20 mg daily, vitamin D3 2000 units daily, Cardizem 30 mg 4 times a day, Protonix 40 mg 2 times a day, and Tylenol 650 mg every 6 hours as needed. HOSPITAL COURSE: Ms. Bradford is a pleasant 88-year-old lady, who was admitted to [facility] on 03/06/2018 for anemia of acute blood loss, secondary to gastric carcinoma and acute on chronic kidney disease, stage 3. She was seen by Nephrology service. She received packed RBC tr ansfusions, 2 units. She was also found to be in atrial fibrillation and has been started on calcium channel wiliam. She is not on anticoagulation, because of recurrent GI bleed secondary to stomach cancer. She complained of diarrhea on 03/08/2018. Stool studies were negative for Clostridium difficile diar watson. There was no evidence of infection. Diarrhea, resolved. On 03/09/2018, she had an episode of vomiting. Abdominal x-rays did not show any free air. She had nonspecific bowel gas pattern in loo ps of small and large bowel. She is being discharged home in a stable condition. On the day of discharge, she has sodium 140; potassium 3.6; blood urea nitrogen 27; creatinine 1.23, decreased from 1.73 on 03/06/2018; white count 19,500; hemoglobin 9.5; and platelet count 261,000. Many thanks for allowing me to participate in your patient's care. Please feel free to contact me wi th any questions or concerns. DISCHARGE DESTINATION: Home. TOTAL AMOUNT OF TIME SPENT COORDINATING THIS DISCHARGE: 32 minutes.
== END 2018-03-09 18:29 | disposition home or self-care (01) | DRG 375 ==
LOC: ERS 19:54 → 2NO 23:07
PROVIDERS: ADMIT Internal Medicine; ATTEND Internal Medicine
PROC: 30233N1 Transfusion of Nonautologous Red Blood Cells into Peripheral Vein, Percutaneous Approach (ICD-10-PCS; principal; 2018-03-07)
DX: C16.9 Malignant neoplasm of stomach, unspecified (principal); D62 Acute posthemorrhagic anemia; N17.9 Acute kidney failure, unspecified; N18.3 Chronic kidney disease, stage 3 (moderate); R19.7 Diarrhea, unspecified; D63.0 Anemia in neoplastic disease; I48.0 Paroxysmal atrial fibrillation; I12.9 Hypertensive chronic kidney disease with stage 1 through stage 4 chronic kidney disease, or unspecified chronic kidney disease; E86.0 Dehydration; E87.6 Hypokalemia; E83.42 Hypomagnesemia; E11.22 Type 2 diabetes mellitus with diabetic chronic kidney disease; E78.5 Hyperlipidemia, unspecified; R74.8 Abnormal levels of other serum enzymes; Z95.3 Presence of xenogenic heart valve; Z88.1 Allergy status to other antibiotic agents; Z88.2 Allergy status to sulfonamides
CPT/HCPCS: 36415; 36416; 36430; 71045; 74019; 80048; 80069; 83690; 83735; 85025; 86850; 86870; 86900; 86901; 86922; 87045; 87046; 87324; 87449; 87899; 96365; J2060; J2405; J2916; J3480; J7050; P9016

== ENCOUNTER 2018-03-12 14:48 | Emergency (ER) | payer MEDICARE | END 2018-03-12 20:25 | disposition home or self-care (01) | LOC: ERS 14:48 | DX: D64.9 Anemia, unspecified (principal); C16.9 Malignant neoplasm of stomach, unspecified; M10.9 Gout, unspecified; E78.5 Hyperlipidemia, unspecified; I10 Essential (primary) hypertension; Z79.899 Other long term (current) drug therapy | CPT/HCPCS: 36430; 86850 ×2; 86900; 86901; 86902; 86920; 86922; 93005; 94760; 99285; P9016; 36415 ==

== ENCOUNTER 2018-03-16 17:47 | Inpatient (IN) | payer MEDICARE ==
[2018-03-16] MEDS ORDERED: Lorazepam 2 MG/ML VIAL ONE (18:04)
[2018-03-16 18:09] LABS: Actual Bicarbonate (HCO3a) 21.5 mEq/L (22-28); Base Excess (BEa) -4.6 mEq/L (-2.0 to +3.0); CO2 Tension 44.9 mmHg (35.0-45.0); O2 Tension (PaO2) 11.5 mmHg (> 60.0)
[2018-03-16 18:10] LABS: Analyzer IN Cardio ER; Calcium, Ionized 1.25 mmol/L (1.12-1.30); Carboxyhemoglobin (COHb) 0.1 gm% (0.0-3.0); Hemoglobin (Hb) 7.1 g/dL (12.0-16.0); Potassium - ABG Lab 3.28 mmol/L (3.70-5.30)
[2018-03-16 18:11] LABS: ALV-art Gradient 645.375 (0-20); Puncture Site R WRIST
[2018-03-16 18:13] LABS: Base Excess-Venous -4.6 mmol/L (0 (+/- 2.5)); Bicarbonate (HCO3v) 14.5 mmol/L (1.0-85.0); CO2 Tension (PvCO2) 13.4 mmHg (41.0-51.0); Calcium, Ionized 1.01 mmol/L (1.12-1.32); Hemoglobin - Calc 8.9 g/dL (12.0-18.0); Lactate 7.26 mmol/L (0.50-2.20); O2 Tension (PvO2) 118.1 mmHg (35.0-45.0); Potassium 4.3 mmol/L (3.4-4.7); T. Carbon Dioxide 14.9 mmol/L (1.0-85.0); pH (Venous) 7.644 (7.35-7.45); vO2 Saturation-calc 99.4 % (94-98)
[2018-03-16] MEDS ORDERED: Midazolam HCl 2 mg/2 ml Vial ONE (18:16)
[2018-03-16 18:39] LABS: Hemoglobin 6.7 g/dL (12.0-16.0); Mean Corpuscular HGB CONC 32.8 g/dL (32.0-36.0); Mean Corpuscular Hemoglobin 30.8 pg (27.0-31.0); Mean Platelet Volume 8.5 fL (7.4-10.4); Platelet Count 411 thou/uL (130-400); RBC Distribution Width 14.8 % (11.5-14.5); Red Blood Cell (RBC) Count 2.17 mill/uL (4.20-5.40); White Blood Cell (WBC) Count 23.6 thou/uL (4.8-10.8)
[2018-03-16 18:46] LABS: INR-International Normal Ratio 1.3; PTT 28.2 SEC (22.9-36.1); Prothrombin Time 16.3 SEC (12.0-14.7)
[2018-03-16 18:50] LABS: ALT (SGPT) 11 U/L (8-55); AST (SGOT) 20 U/L (5-34); Albumin 2.7 g/dL (3.4-4.8); Alkaline Phosphatase 105 U/L (40-150); Anion Gap 25 mmol/L (10-20); BUN (Urea Nitrogen) 48 mg/dL (9.8-20.1); Bilirubin, Total 0.5 mg/dL (0.2-1.2); Calc. Creatinine Clearance 0 mL/min (70-130); Carbon Dioxide 17 mmol/L (23-31); Chloride 100 mmol/L (98-107); Estimated GFR-MDRD 24; Glucose 274 mg/dL (83-110); Lipase 41 U/L (8-78); Potassium 3.7 mmol/L (3.5-5.1); Protein, Total 5.7 g/dL (6.0-8.3); Sodium 138 mmol/L (136-145)
[2018-03-16 18:54] LABS: CKMB 2.2 ng/mL (0-6.6)
[2018-03-16 18:58] LABS: Troponin I 0.722 ng/mL (< 0.028)
[2018-03-16 19:00] LABS: Anisocytosis SLIGHT = 6-15 cells (100X) (0-5/hpf); Band 3 % (5-11); Hypochromia SLIGHT = 6-15 cells (100X) (0-5/hpf); Lymphocytes 12 % (21-51); MDiff Complete? YES; Monocytes 4 % (0-10); Neutrophil 81 % (42-75); Platelet Morphology Comment Appears Increased
--- NOTE | 2018-03-16 19:18 | RAD ---
CHEST ONE VIEW: Comparison: 03-12-18 History: Pain. FINDINGS: There are sternotomy wires. Normal cardiac silhouette. Pulmonary vessels and hilum are normal. Costop hrenic angles are clear. Possible retrocardiac opacity suggesting infiltrate, pneumonia, or aspiratio n. No pneumothorax or osseous abnormality. IMPRESSION: Retrocardiac opacity as described above. POS: [facility]
[2018-03-16] MEDS ORDERED: Furosemide 40 MG/4 ML VIAL ONE (19:51)
[2018-03-16] MEDS ORDERED: Ondansetron PF 4 MG/2 ML Vial IVP PRN (20:30)
[2018-03-16] MEDS ORDERED: Sodium Chloride 0.9% 1,000 ML IV SCH (20:30)
--- NOTE | 2018-03-16 20:40 | PDOC.EVN ---
Event Note - Event Note Event Note: we have detailed discussion with pt's POA that is the daughter, pt has decided she was tired of being sick and fighting advanced stage cancer, she has been drastically getting worse in the past few weeks, and decision has been made to place her in comfort care, given poor prognosis. will respect pt's and POa decision, we have also consider that the patient cold be transfer to her hometown hospital if pt survive another night to be close to her family during the comfort care period, that as per poa this has been done in the past with other family members.
[2018-03-16] MEDS ORDERED: Scopolamine 1.5 mg/72 hour Patch TOP SCH (23:59)
--- NOTE | 2018-03-17 00:23 | HP ---
PRIMARY CARE PHYSICIAN: Dr. Vargas, follows her for Oncology. CODE STATUS: DNR/DNI. I have discussed in details patient's condition with extensive stomach cancer, severe anemia, Oncology has recommended the patient for being hospice care since there is no medical treatment available for her. The patient has been gradually deteriorating and drastically in the past few weeks As per daughter report, daughter is the power of litigation attorney. She has decided to respect her mother's wishes and brought the patient in comfort care as was the last conversation, the patient had with her daughter as she was tired of receiving treatment with no change in her current condition. TIME OF EVALUATION: 8:00 p.m. CHIEF COMPLAINT: Vomiting up blood. HISTORY OF PRESENT ILLNESS: This is an 88 years old female patient with past medical history of stomach cancer that is stage IV, has been told by Dr. Vargas. There is no cancer treatment available given her advanced disease. The patient has had multiple episodes of GI bleeding, had received multiple blood transfusions in the past few weeks for improvement of the symptoms. Today she came back with having again severe episode of acute blood loss due to vomiting. The patient also developed chest pain. She also was found to have ST elevation MN. Symptoms are severe, likely triggered by acute blood loss anemia, due to cancer, no alleviating factors. The patient has received 2 units of PRBC now after discussion with daughter. We will place the patient on comfort care, and she has requested also the possibility of being transferred to her hometown hospital for the patient to be in an inpatient comfort care ____ _. I have discussed palliative care and hospice care with her, but she is not willing to go for those services at this point. The onset was sudden, associated with pain. REVIEW OF SYSTEMS: Unable to obtain from the patient, the patient is confused, not fully cooperative. PAST MEDICAL HISTORY: Stomach cancer stage IV. Frequent previous GI bleeding, gout, hyperlipidemia, high cholesterol, hypertension, diabetes, congestive heart failure, valve replacement. PAST SURGICAL HISTORY: Valve replacement. PSYCHIATRIC HISTORY: No previous psychiatric history. SOCIAL HISTORY: The patient lives with daughter. No smoking, no alcohol, no drugs. FAMILY HISTORY: Reviewed and noncontributory to her current presentation. KNOWN ALLERGIES: BACTRIM, CEPHALEXIN, SULFA. REPORTED MEDICATIONS: Atorvastatin, metoprolol, allopurinol, amlodipine, vitamin D3, iron, Multaq, Protonix, and Lasix. PHYSICAL EXAMINATION: VITAL SIGNS: On presentation, blood pressure 107/50, heart rate 50, respiratory rate was 28, temperature 97.3. GENERAL APPEARANCE: The patient is lethargic, disoriented, and in mild distress. HEENT: Eyes: Normal conjunctivae, pale. Dry oral mucosa. Anicteric. NECK: No JVD. LUNGS: Bilateral air entry, respiratory rate is increased. No rales, no wheezing. Symmetric expansion. CARDIOVASCULAR: The patient is bradycardic, blood pressure is normal. No murmurs, no gallop. No edema. ABDOMEN: Soft, tender. Normal bowel sounds. MUSCULOSKELETAL: Baseline range of motion and strength. No tenderness. SKIN: Warm, pale. No rash. No redness. Multiple ecchymoses in the arms from recent episode of . Peripheral pulses are present. Capillary refill seems to be intact. NEUROLOGIC: No evidence of any new focal weakness. Baseline speech. Cranial nerves seem to be intact. PSYCHIATRIC: Unable to explore, the patient is lethargic. EKG was reviewed and discussed with the performing physician from ER. It showed junctional rhythm with acute MN ST elevation inferiorly, ventricular rate of 54, QRS 80, QT corrected 419. Chest x-ray was reviewed, retrocardiac opacity suggesting possible infiltrate, pneumonia, aspiration or pneumothorax or osseous abnormalities. LABORATORY DATA: Reviewed. The patient had a white count 23.6, hemoglobin 6.7 , MCV 94, platelet count 411. Blood gas VBG was done, pH was 7.3, repeat one showed pH of 7.6 with no CO2 retention. Sodium 138, potassium 3.7, chloride 100 , anion gap 25, carbon dioxide 17, BUN 48, creatinine 1.98, glucose 174. GFR 24. Lactic acid 11.7, calcium was 10. Troponin 0.72. Beta natriuretic peptide was 732. Serum total protein 5.7, albumin 2.7. ASSESSMENT AND PLAN: The patient will be placed in the hospital with following medical conditions. The patient is very ill with end-stage stomach cancer, multiple metastases as per report, Oncology has spoken with patient and power of litigation attorney and has recommended hospice care. There is no medical treatment available to help the patient. The patient has presented now with possible retrocardiac pneumonia, ST elevation myocardial infarction in inferior leads, also severe blood loss anemia from upper gastrointestinal bleeding likely trigger from the stoma cancellation. The patient will be placed in comfort care. Please see above note for details. No aggressive treatment to be pursued at this time. RISK ASSESSMENT: High risk due to multiple comorbidities and patient has been downgraded to comfort care given poor prognosis and no therapeutic choices. MEDICAL PROBLEMS: 1. ST elevation myocardial infarction. 2. Retrocardiac pneumonia. 3. Upper gastrointestinal bleeding. 4. Severe acute blood loss anemia. 5. Severe lactic acidosis. 6. Metabolic acidosis. 7. Leukocytosis. MTDD
[2018-03-17 01:00] VITALS: BP 85/22; TEMP 97.8; BMI 24.3
--- NOTE | 2018-03-18 14:44 | DIS ---
DATE OF ADMISSION: 03/16/2018 DATE OF DISCHARGE: 03/17/2018 DISCHARGE SUMMARY/ SUMMARY: HOSPITAL COURSE: The patient was admitted on 03/16/2018 and discharged on 03/17/2018. The patient was admitted by me since the patient had presented to the hospital vomiting up blood. The patient has a history of advanced stomach cancer, stage IV, had been followed by Dr. Vargas, the patient had been deteriorating gradually. The details were discussed with the family member. The patient has stated to her daughter that she did not want to be resucitated and was willing to have comfort care. Having that consideration, the patient was placed in comfort care, some initial medical treatment was given, no further aggressive treatment was pursued. The patient's symptoms were very severe, who also presented with ST-elevation ME, severe anemia, likely deteriorated by GI bleeding. The patient was placed in comfort care and on the next morning. The patient was pronounced as per hospital protocol after being found nonresponsive by nursing staff. ADMISSION DIAGNOSES: Stage IV stomach cancer, severe GI bleeding, severe anemia , ST-elevation myocardial infarction, retrocardiac pneumonia, lactic acidosis, leukocytosis, sepsis. Arrangement was done by nursing staff for transfer of the patient to home. Feel free to contact me for any further questions. Job ID: [id number] MTDD
--- NOTE | 2018-03-22 16:21 | EKG ---
Test Reason : CP Blood Pressure : / mmHG Vent. Rate : 054 BPM Atrial Rate : 241 BPM P-R Int : 000 ms QRS Dur : 082 ms QT Int : 522 ms P-R-T Axes : 000 013 136 degrees QTc Int : 495 ms Junctional rhythm with Fusion complexes Anterolateral infarct , age undetermined Inferior injury pattern * ACUTE AR * Consider right ventricular involvement in acute inferior infarct Abnormal ECG Confirmed by MIRNA BROWNE ([id number]), technical writer and editor ALF MATHEW ([id number]) on 03/22/2018 4:21:28 PM Referred By: Confirmed By:MIRNA BROWNE
== END 2018-03-17 03:50 | disposition expired | DRG 951 ==
LOC: ERS 17:47 → T4-B 20:20
PROVIDERS: ADMIT Hospitalist; ATTEND Hospitalist
PROC: 30233N1 Transfusion of Nonautologous Red Blood Cells into Peripheral Vein, Percutaneous Approach (ICD-10-PCS; principal; 2018-03-16)
PROC: 06HM33Z Insertion of Infusion Device into Right Femoral Vein, Percutaneous Approach (ICD-10-PCS; 2018-03-16)
DX: Z51.5 Encounter for palliative care (principal); I21.3 ST elevation (STEMI) myocardial infarction of unspecified site; J18.8 Other pneumonia, unspecified organism; C16.9 Malignant neoplasm of stomach, unspecified; K92.0 Hematemesis; D62 Acute posthemorrhagic anemia; K92.2 Gastrointestinal hemorrhage, unspecified; E87.2 Acidosis; N17.9 Acute kidney failure, unspecified; Z66 Do not resuscitate; E78.5 Hyperlipidemia, unspecified; Z95.2 Presence of prosthetic heart valve; E11.9 Type 2 diabetes mellitus without complications; D63.0 Anemia in neoplastic disease; M10.9 Gout, unspecified; I11.0 Hypertensive heart disease with heart failure; I50.9 Heart failure, unspecified
CPT/HCPCS: 36430; 36556; 71045; 80053; 82330; 82553; 82803; 82805; 83605; 83690; 83880; 84484; 85025; 85610; 85730; 86850; 86900; 86901; 86922; 93005; 94760; 96374; 96375; J1940; J2060; J2250; P9016